=== PATIENT | female | born 1955 | race Two or more races ===

== ENCOUNTER 2021-01-05 13:54 | Outpatient (REF) | payer MEDICARE, MEDICAID, SELFPAY ==
--- NOTE | ~2021-01-05 | MM_ITS ---
EXAMINATION: MM SCREENING DIGITAL BREAST TOMOSYNTHESIS, BILATERAL CLINICAL INFORMATION: Screening. Asymptomatic. Prior history left breast cancer 2015 and right ALH 2015. COMPARISON: Mammography: 12/30/2019, 12/17/2018, 12/15/2017, 12/12/2016, 11/10/2015 TECHNIQUE: Digital breast tomosynthesis is performed in both the craniocaudal and mediolateral oblique views along with computer-aided detection (CAD). Synthesized 2D images are generated from the tomosynthesis. Additional right MLO and exaggerated left CC views are provided. FINDINGS: There are scattered areas of fibroglandular density (ACR BI-RADS breast composition Category b). The right breast parenchymal pattern is similar to prior exams. There is no developing density or interval mass or architectural abnormality. Neither breast shows abnormal calcifications. The bilateral axilla and skin contours are unremarkable. Left MLO view has nodular asymmetry lower quadrant, lateral to midline on tomography without correlate on the CC views. Patient will be recalled for additional imaging. Remainder of the left breast is unremarkable. MM/MM tomosynthesis screening BI IMPRESSION: 1. Left: Nodular asymmetry lower quadrant on MLO view. 2. Right: No mammographic evidence of malignancy. ASSESSMENT: BI-RADS 0: Incomplete - Need Additional Imaging Evaluation RECOMMENDATION: 1. Additional views of the left breast (3-D spot MLO, 3-D ML). 2. Targeted ultrasound if warranted after review of the additional views. 3. Radiology department staff will contact the patient for additional imaging. This patient's information was entered into a reminder system with a target due date for their next mammogram.
== END 2021-01-05 13:55 | disposition home or self-care (01) ==
LOC: HO.MAMMO 13:54
PROVIDERS: PCP Family Medicine; Visit Provider Family Medicine
DX: Z12.31 Encounter for screening mammogram for malignant neoplasm of breast (principal)
CPT/HCPCS: 77063; 77067

== ENCOUNTER 2021-01-29 10:16 | Outpatient (REF) | payer OTHER, SELFPAY ==
--- NOTE | ~2021-01-29 | US_ITS ---
EXAMINATION: MM DIAGNOSTIC DIGITAL BREAST TOMOSYNTHESIS, LEFT US DIAGNOSTIC ULTRASOUND BREAST, LEFT CLINICAL INFORMATION: Recall from screening for nodular asymmetry lower quadrant lateral to midline on MLO tomography. No CT correlate. Prior history left breast cancer 2014 and right ALH 2014 COMPARISON: Mammography: 01/05/2021 and multiple prior exams dating back to 03/26/2012. TECHNIQUE: Digital breast tomosynthesis is performed. 2D images are generated from the tomosynthesis. The following views are obtained: 3-D ML, 3-D spot MLO x2. Ultrasound left breast is targeted to the lower outer quadrant. Grayscale imaging and color Doppler are performed without and with harmonics. FINDINGS: There are scattered areas of fibroglandular density (ACR BI-RADS breast composition Category b). Additional views show parenchymal pattern similar to prior remote exams. There are shifting fibroglandular densities from year to year without interval developing density or mass on additional imaging. Ultrasound demonstrates no cystic or solid mass or architectural abnormality in the targeted area. Results are discussed with the patient at time of visit, using an low emission automobile designer. US/US breast LT limited IMPRESSION: Additional views show no significant changes from prior studies. Unremarkable targeted left breast ultrasound. ASSESSMENT: BI-RADS 2: Benign RECOMMENDATION: Routine annual mammography screening. This patient's information was entered into a reminder system with a target due date for their next mammogram.
== END 2021-01-29 10:17 | disposition home or self-care (01) ==
LOC: HO.MAMMO 10:16
PROVIDERS: PCP Family Medicine; Visit Provider Family Medicine
DX: N64.89 Other specified disorders of breast (principal)
CPT/HCPCS: 76642; 77061; 77065

== ENCOUNTER → 2021-08-06 16:00 | Outpatient (BNV) | payer OTHER, SELFPAY | PROVIDERS: Visit Provider Internal Medicine | DX: C50.912 Malignant neoplasm of unspecified site of left female breast (principal) | CPT/HCPCS: 99213; 99214 ==

== ENCOUNTER 2021-08-24 18:39 | Outpatient (REF) | payer OTHER, SELFPAY ==
--- NOTE | ~2021-08-24 | MR_ITS ---
EXAMINATION: MR head/brain wo con CLINICAL INFORMATION: Reason for Exam Other general signs and symptoms . Forgetfulness; in balance. Symptoms for one year. COMPARISON: CT angiography head 03/29/2015. CT head 07/05/2014. TECHNIQUE: Routine unenhanced MRI of the brain obtained on a 1.5 Nataliya platform. FINDINGS: A mild number scattered supratentorial subcortical and periventricular white matter punctate T2 hyperintensities are noted. Mild diffuse commensurate prominence of ventricles and sulci is visualized. No intrarenal hemorrhage, tumors or acute infarcts are visualized. Susceptibility weighted images reveal no evidence of acute or chronic hemorrhage within the brain parenchyma. The craniocervical junction cerebellar tonsils are normal in configuration. No suspicious marrow abnormalities. Normal flow-related signal intensity within the visualized major intracranial vessels and dural sinuses. Normal orbits and globes. No significant mucosal thickening or retained secretions within the mastoid air cells, middle ear cavities and paranasal sinuses. A 6 mm diameter subcutaneous nodules present in the right parietal region corresponding to a similar finding on the comparison CT the head from 03/29/2015. This finding is suspicious for sebaceous cyst. MR/MR head/brain wo con IMPRESSION: -No acute intracranial abnormalities. -Mild chronic microangiopathic ischemic changes. -Incidental 6 mm subcutaneous extracranial nodule in the right parietal region most suspicious for a sebaceous cyst.
== END 2021-08-24 18:40 | disposition home or self-care (01) ==
LOC: HO.MRI 18:39
PROVIDERS: PCP Family Medicine; Visit Provider Family Medicine
DX: R68.89 Other general symptoms and signs (principal)
CPT/HCPCS: 70551

== ENCOUNTER 2022-01-07 13:53 | Outpatient (REF) | payer OTHER, SELFPAY ==
--- NOTE | ~2022-01-07 | MM_ITS ---
EXAMINATION: MM SCREENING DIGITAL BREAST TOMOSYNTHESIS, BILATERAL CLINICAL INFORMATION: Screening. Asymptomatic. Status post left lumpectomy. COMPARISON: Mammography: January 29, 2021 and studies dating back to October 19, 2014 TECHNIQUE: Digital breast tomosynthesis is performed in both the craniocaudal and mediolateral oblique views along with computer-aided detection (CAD). Synthesized 2D images are generated from the tomosynthesis. FINDINGS: There are scattered areas of fibroglandular density (ACR BI-RADS breast composition Category b). There are no significant masses, abnormal calcifications, or other abnormalities. MM/MM tomosynthesis screening BI IMPRESSION: There are no significant changes from prior study. ASSESSMENT: BI-RADS 1: Negative RECOMMENDATION: Routine annual mammography screening. This patient's information was entered into a reminder system with a target due date for their next mammogram.
== END 2022-01-07 13:54 | disposition home or self-care (01) ==
LOC: HO.MAMMO 13:53
PROVIDERS: PCP Family Medicine; Visit Provider Family Medicine
DX: Z12.31 Encounter for screening mammogram for malignant neoplasm of breast (principal)
CPT/HCPCS: 77063; 77067

== ENCOUNTER 2022-05-16 12:50 | Emergency (ER) | payer OTHER, SELFPAY ==
[2022-05-16 13:04] VITALS: BP 152/86; PULSE 79; O2SAT 96
[2022-05-16 14:08] VITALS: BP 157/77; PULSE 59; RESP 19; TEMP 36.6; O2SAT 95; BMI 35.8
[2022-05-16 14:22] LABS: MANUAL DIFF FLAG NO
[2022-05-16 14:25] LABS: Basophils Absolute Auto 0.1 X10*3/uL (0.0-0.2); Basophils Percent Auto 0.6 % (0-2); Eosinophils Absolute Auto 0.1 X10*3/uL (0.0-0.4); Eosinophils Percent Auto 1.2 % (0-4); Hematocrit 42.6 % (37.0-47.0); Hemoglobin 14.2 g/dl (12.0-16.0); Imm Gran Abs Auto 0.02 X10*3/uL (0.00-0.03); Imm Gran Pct Auto 0.2 % (0.0-0.4); Lymphocytes Absolute Auto 1.7 X10*3/uL (1.2-4.9); Lymphocytes Percent Auto 20.6 % (20-40); Mean Corpuscular HGB Conc 33.3 g/dl (31.0-35.0); Mean Corpuscular Hemoglobin 28.6 pg (27.0-33.0); Mean Corpuscular Volume 85.9 fL (80.0-98.0); Mean Platelet Volume 10.8 fL (9.4-12.3); Monocytes Absolute Auto 0.7 X10*3/uL (0.1-1.2); Monocytes Percent Auto 8.2 % (2-11); Neutrophils Absolute Auto 5.6 x10*3/uL (2.0-8.3); Neutrophils Percent Auto 69.2 % (45-73); Platelet Count 238 X10*3/uL (160-400); Red Blood Count 4.96 X10*6/uL (4.20-5.50); Red Cell Distribution Width 12.9 % (11.0-16.0); White Blood Count 8.1 X10*3/uL (4.8-10.8)
[2022-05-16 14:42] LABS: Anion Gap 13 (12-20); Blood Urea Nitrogen 10 mg/dL (9-16); Calcium 9.6 mg/dL (8.4-10.2); Carbon Dioxide 26 mmol/L (22-29); Chloride 105 mmol/L (96-108); Creatinine Clr Calc Pharmacy 66.7; Estimated Glomerular Filt Rate > 60; Glucose Random 124 mg/dL (60-115); Potassium 3.7 mmol/L (3.3-5.1); Sodium 140 mmol/L (135-145)
[2022-05-16 15:25] VITALS: BP 161/59; PULSE 59; RESP 20; TEMP 37; O2SAT 98
--- NOTE | 2022-05-16 15:55 | ED_ITS ---
HPI - General Adult General Chief complaint: Headache Stated complaint: headache and htn Time Seen by Provider: 05/16/22 15:33 Source: patient Mode of arrival: ambulatory Limitations: language barrier (Serbian-speaking) History of Present Illness HPI narrative: 67-year-old female with a past medical history of breast cancer, invasive ductal carcinoma Status post 4 cycles of dose dense AC with Neulasta support started December 14, by Dr. Kaye. 2014 completed January 25, 2015, Received tamoxifen until nov 2016, finished a course Letrozole, completed a 5 years of hormonal therapy, HTN on 20 mg lisinopril taking as prescribed and depression presenting to the ER with complaints of a diffuse headache that started 2 days ago when she woke up and she noted she had high blood pressure 200/100 that she took her blood pressure medication although the symptoms continued therefore she went to [facility] Emergency Department yesterday. She states in Serbian ?they did a full workup on me they took 8 tubes of blood and they did a CT scan of my head they did an x-ray and an EKG and told me it was all normal in sent me home with Tylenol?. She reports today she has some right-sided neck pain she reports that she thinks is a muscle spasm because when she turns her neck it will worsens and when she palpates her right neck/back/trapezius aspect she has pain. She denies any dizziness at this time to me. She denies any changes in vision, nausea/vomiting, chest pain or shortness of breath, dyspnea on exertion, orthopnea, palpitations, paresthesias, abdominal pain, diarrhea, black or bloody stools, rashes, recent travel or sick contacts, recent falls or trauma, recent tick bites, recent CO2 exposure/toxicity, recent epidural procedure, recent spinal tap or any other symptoms complaints or concerns at this time. MD complaint: Headache, high blood pressure and right neck pain Onset (ago): day(s) (3) Location: head and neck Radiation: non-radiation Severity: mild Quality: aching Pain Consistency: constant Relieving factors: none Exacerbating factors: movement (Palpation and movement of the right side of the neck) Associated symptoms: headaches and other (High blood pressure) Treatments prior to arrival: other (Reports she is taking [id number] Tylenol no symptomatic relief) Related Data Home Medications Medication Instructions Recorded Confirmed hydroxyzine HCl 10 mg tablet 10 mg PO BEDTIME 08/06/21 01/30/22 ibuprofen 600 mg tablet 600 mg PO Q6H PRN Pain 08/06/21 01/30/22 lisinopril 20 mg tablet 20 mg PO DAILY 08/06/21 01/30/22 multivitamin 1 tab PO DAILY 08/06/21 01/30/22 omeprazole 20 mg tablet,delayed 20 mg PO DAILY 08/06/21 01/30/22 release ascorbic acid (vitamin C) 25 mg 10 mg PO DAILY 01/30/22 01/30/22 tablet Previous Rx's Medication Instructions Recorded letrozole 2.5 mg tablet 2.5 mg PO DAILY breast cancer #90 08/24/20 tabs cyclobenzaprine 10 mg tablet 10 mg PO Q8H #14 tabs 05/16/22 ibuprofen 800 mg tablet 800 mg PO Q8H PRN pain #14 tabs 05/16/22 Allergies Allergy/AdvReac Type Severity Reaction Status Date / Time morphine [MORPHINE] AdvReac Mild NAUSEA & Verified 05/16/22 14:08 VOMITING Review of Systems Review of Systems: Constitutional : No changes in activity, No lethargy, No recent prior head injury, No agitation, No increased fussiness ENT/Mouth : No Ear Pain, No Nasal discharge/drainage Eyes: No Eye Pain, No Swelling, No Redness, No Foreign Body, No Vision Changes Cardiovascular : No Chest Pain, No SOB Respiratory : No Cough Gastrointestinal : No Nausea, No Vomiting, No abdominal Pain Genitourinary : No Dysuria, No Urinary Frequency, No Urinary Incontinence, No Urgency, No Flank Pain Musculoskeletal : + Neck pain, No joint pain, No neck stiffness, No back pain/injury Skin : No lacerations Neuro : No unsteady gait, No Paresthesias, No Loss of Consciousness, No altered mental status, No dizziness, + Headache Denies past medical history of HIV, recent trauma, coagulopathy, recent spinal/ epidural procedure, new medication, URI symptoms, close contacts with similar symptoms, tick bite, or known CO2 exposure. Yes all other systems are reviewed and are negative [facility], [facility] Past Medical History Attestation statement: The following information was validated with the patient. Source: old records reviewed and nursing notes reviewed Medical History Depression Diverticulitis HTN (hypertension) Internal hemorrhoids Osteoarthritis of both hands Rotator cuff dysfunction Sebaceous cyst Surgical History H/O: hysterectomy Family History Family History Mother Breast cancer Sister Breast cancer Social History Social History Household Members: Significant Other Housing: Apartment Are you a primary customer care manager to a significant other at home: No Do you presently have visiting nurse or other home services: No Alcohol intake: former Patient Tobacco Use Status: Former Tobacco user Quit Date: 2013 Tobacco use type: Cigarette Smoked in Last 30 Days: No Use of substances other than those prescribed or required for medical reasons: No Advance Directives: No Advance Directives Information Provided: Yes service: No Current occupational status: disabled Physical Exam ED Vital Signs: Vital Signs - 24 hr 05/16/22 14:08 05/16/22 15:25 Temperature 98 F 98.6 F Pulse Rate 59 59 Respiratory Rate 19 20 Blood Pressure 157/77 H 161/59 H Pulse Oximetry 95 98 Oxygen Delivery Method Room Air Room Air BMI result Body Mass Index 35.8 vital signs have been reviewed as normal and appeared to be correct. Blood pressure 157/77. Heart rate normal. Respiration rate normal. Temperature normal. Oxygen saturation normal. Appearance: Alert. Oriented X3. No acute distress. Head: Normal external exam. Normocephalic. Atraumatic. No Bhat signs noted. No raccoon eyes noted Eyes: PERRLA. EOMI. Conjunctiva and sclera normal. Eyelids normal. ENT: EAC normal. TM's Normal. No septal hematoma noted. No hemotympanum noted. Pharynx normal. Uvula midline. Moist mucous membranes. No lesions/ulcerations or masses noted on the tongue. Normal voice. No trismus noted. No drooling noted. No muffled voice noted. Neck: Normal inspection. Neck supple. FROM. No adenopathy. Thyroid Normal. No tracheal deviation noted. No crepitus is noted. No meningeal signs. No neck mass noted. No signs of trauma noted. CVS: Normal heart rate and rhythm. Heart sound normal. Pulses normal throughout. No murmurs/rales/gallops. Respiratory: No respiratory distress. Painless inspiration. Breath sounds normal. No wheezes/rales/rhonchi noted. Chest nontender. No crepitus is noted. No signs of trauma noted. No accessory muscle usage noted or decreased air movement noted. No signs of trauma. Abdomen: Soft and nontender. Bowel sounds normal in all 4 quadrants. No distention noted. No organomegaly noted. No visible injury noted. Back: No CVA tenderness. Full range of motion noted. Nontender. No signs of trauma. Patient neuro intact bilaterally and distally on all 4 extremities. Patient's reflexes intact bilaterally and distally on all 4 extremities. No rashes/lesion/induration/fluctuance or signs of infection noted. Skin: Skin warm and dry. Normal skin color. Normal skin turgor. No rashes/lesions/lacerations noted. Extremities: No lower extremity edema. No calf tenderness is noted. Extremities exhibit normal range of motion and nontender. Neuro: Oriented X 3. No motor deficit. No sensory deficit. Reflexes normal. Moving all extremities. No focal motor deficits. Cranial nerves II-XI intact bilaterally. Facial strength normal. Normal cognition. Speech normal. Gait normal. Strength 5/5 throughout. No pronator drift. No tremor noted. No fasciculations noted. No rigidity noted. Muscle tone normal throughout. No asterixis noted. [id number] test normal. Heel to [place] test normal. Tandem gait normal. Does not sway with eyes open. Romberg test negative. Rapid alternating movement upper extremity normal. Rapid alternating movement lower extremity normal. Hand drop from overhead Misses face. NIHSS score 0. Vascular: + radial pulses/+ 2 distal pedal pulses/+2 dorsalis pedis b/l. Normal cap refill. No cyanosis noted to upper extremity nails and lower extremity toes nails. Course Course Course Narrative: - Patient afebrile, resting comfortably in no distress. Non-toxic appearing. Patient denies any recent trauma/injury to head. Neurological exam shows no deficits. BP WNL. Denies any changes in vision. Patient ambulates without difficulty. Given the history, and physical - most likely diagnosis: COTO. Patient reports she had a thorough workup yesterday and a CT scan of her brain and they told her that it was a muscle spasm and high blood pressure and to continue taking her previously prescribed medications. Therefore no additional imaging indicated at this time as patient has a normal neuro exam and her symptoms have been present for 3 days and yesterday she had a CT scan of her brain at [facility] that she reports was negative. Will treat pain. Will d/c with headache medicaiton and advised to follow - up with PCP. Patient demonstrated good understanding of signs and symptoms to return to ED for further testing should sx worsen. gradual onset COTO. SAH: unlikely given gradual onset and similar to previous episodes Intracranial bleed: unlikely given neg trauma, neg anticoagulation Meningitis: unlikely given pt afebrile, neg stiff neck, no immune compromise. Exam without signs of meningismus Temporal arteritis: Unlikely given Neg jaw claudication, no temporal tenderness or nodularity on exam. Cerebral venous thrombosis: unlikely given no h/o hypercoaguable state, no chronic head/neck infection. Pt c likely muscular pain, but could be herniated disc. Neuro exam shows no deficits. Not c/w vascular etiology, perivertebral / other soft tissue neck / airway infection, or spinal fx / process. Imaging not currently indicated. DC c meds and f/u patient understands agrees with this plan. Medical Decision Making Medical Records Medical records reviewed: Yes I reviewed the patient's medical records. Lab Data Lab results reviewed: Yes I reviewed the patient's lab results. Result diagrams: 05/16/22 14:16 05/16/22 14:16 Labs: Lab Results 05/16/22 05/16/22 Range/Units 14:16 14:16 WBC 8.1 (4.8-10.8) X10*3/uL RBC 4.96 (4.20-5.50) X10*6/uL Hgb 14.2 (12.0-16.0) g/dl Hct 42.6 (37.0-47.0) % MCV 85.9 (80.0-98.0) fL MCH 28.6 (27.0-33.0) pg MCHC 33.3 (31.0-35.0) g/dl RDW 12.9 (11.0-16.0) % Plt Count 238 (160-400) X10*3/uL MPV 10.8 (9.4-12.3) fL Immature Gran % (Auto) 0.2 (0.0-0.4) % Neut % (Auto) 69.2 (45-73) % Lymph % (Auto) 20.6 (20-40) % Morrill % (Auto) 8.2 (2-11) % Eos % (Auto) 1.2 (0-4) % Baso % (Auto) 0.6 (0-2) % Lymph # (Auto) 1.7 (1.2-4.9) X10*3/uL Morrill # (Auto) 0.7 (0.1-1.2) X10*3/uL Eos # (Auto) 0.1 (0.0-0.4) X10*3/uL Baso # (Auto) 0.1 (0.0-0.2) X10*3/uL Abs Immat Gran (auto) 0.02 (0.00-0.03) X10*3/uL Absolute Neuts (auto) 5.6 (2.0-8.3) x10*3/uL Absolute Nucleated RBC 0.000 (0.0-0.012) X10*3/uL Nucleated RBC % (auto) 0.0 (0.0-0.2) /100WBC Sodium 140 (135-145) mmol/L Potassium 3.7 (3.3-5.1) mmol/L Chloride 105 (96-108) mmol/L Carbon Dioxide 26 (22-29) mmol/L Anion Gap 13 (12-20) BUN 10 (9-16) mg/dL Creatinine 0.87 (0.5-1.4) mg/dL Estim Creat Clear Calc 66.7 Estimated GFR > 60 Random Glucose 124 H (60-115) mg/dL Calcium 9.6 (8.4-10.2) mg/dL Discharge Plan Discharge Clinical Impression: Headache, Muscle spasms of neck, High blood pressure Patient Disposition: Home, Self-Care Instructions: Heart Healthy Diet (ED), Hypertension (ED), Muscle Spasm (ED) Prescriptions: New ibuprofen 800 mg tablet 800 mg PO Q8H PRN (Reason: pain) Qty: 14 0RF cyclobenzaprine 10 mg tablet 10 mg PO Q8H Qty: 14 0RF No Action letrozole 2.5 mg Tablet 2.5 mg PO DAILY Qty: 90 3RF Rx Instructions: Take 1 po daily multivitamin Tablet 1 tab PO DAILY lisinopril 20 mg Tablet 20 mg PO DAILY ibuprofen 600 mg Tablet 600 mg PO Q6H PRN (Reason: Pain) hydroxyzine HCl 10 mg Tablet 10 mg PO BEDTIME omeprazole 20 mg Tablet,Delayed Release (Dr/Ec) 20 mg PO DAILY Vitamin C 25 mg Tablet 10 mg PO DAILY Referrals: Margo Daniel DO [Primary Care Provider] - 2 days Interventions: ED Discharge Assessment Last Done: 05/16/22 16:16 Discharge Date/Time: 05/16/22 16:17
[2022-05-16] MEDS: Cyclobenzaprine HCl 10 MG TABLET PO (15:58)
[2022-05-16] MEDS: Lidocaine 4 % Patch ADH..PATCH 1 PATCH TRANSDERMA (15:58)
[2022-05-16] MEDS: Ibuprofen 800 MG TABLET PO (16:13)
== END 2022-05-16 16:17 | disposition home or self-care (01) ==
PROVIDERS: Emergency Provider Student in an Organized Health Care Education/Training Program; PCP Family Medicine
DX: R51.9 Headache, unspecified (principal); M62.838 Other muscle spasm; I10 Essential (primary) hypertension; Z79.899 Other long term (current) drug therapy
CPT/HCPCS: 36415; 80048; 85025; 99283; 99284

== ENCOUNTER 2022-05-18 20:38 | Emergency (ER) | payer OTHER, SELFPAY ==
--- NOTE | ~2022-05-18 | CT_ITS ---
EXAMINATION: CT HEAD WITHOUT CONTRAST CLINICAL INFORMATION: Headache COMPARISON: MRI brain dated 08/24/2021 TECHNIQUE: Contiguous axial imaging was performed from the skull base to vertex without intravenous administration of contrast. This CT examination was performed using dose optimization techniques as appropriate, variously including the following: *Automated exposure control *Adjustment of mA and/or kV according to patient size (this includes techniques or standardized protocols for targeted exams where dose is matched to indication/reason for exam; i.e. extremities or head) *Use of iterative reconstruction technique DLP: 662 mGy-cm FINDINGS: There is no evidence of acute intracranial hemorrhage or territorial infarction. No abnormal mass effect or midline shift is seen. Prieto to white matter differentiation is well preserved. No extra-axial fluid collections are identified. The ventricles are normal in size. There is no abnormal attenuation within the brain parenchyma. The mastoid air cells and visualized portions of the paranasal sinuses are well aerated. There are couple pilomatricomas in the scalp. CT/CT head/brain wo con IMPRESSION: No acute intracranial pathology.
[2022-05-18 20:40] VITALS: BP 200/83; PULSE 86; RESP 18; TEMP 36.5; O2SAT 94; BMI 36.0
--- NOTE | 2022-05-18 22:17 | ED_ITS ---
HPI - Headache General Chief Complaint: Headache Stated Complaint: Head pain Time Seen by Provider: 05/18/22 22:12 Source: patient Mode of arrival: ambulatory Limitations: no limitations History of Present Illness HPI Narrative: Patient comes to the emergency room complaining of a posterior headache. Patient states the headache has been there for about 2 days. Patient was evaluated for headache, muscle spasms of the neck and high blood pressure. Yesterday, patient went to [facility] complaining of the same. Patient today complaining of headache, no nausea vomiting, no visual changes. Patient states she takes 20 mg of lisinopril daily for her blood pressure and is compliant with her meds. Denies chest pain or shortness of breath Related Data Home Medications Medication Instructions Recorded Confirmed hydroxyzine HCl 10 mg tablet 10 mg PO BEDTIME 08/06/21 01/30/22 ibuprofen 600 mg tablet 600 mg PO Q6H PRN Pain 08/06/21 01/30/22 lisinopril 20 mg tablet 20 mg PO DAILY 08/06/21 01/30/22 multivitamin 1 tab PO DAILY 08/06/21 01/30/22 omeprazole 20 mg tablet,delayed 20 mg PO DAILY 08/06/21 01/30/22 release ascorbic acid (vitamin C) 25 mg 10 mg PO DAILY 01/30/22 01/30/22 tablet Previous Rx's Medication Instructions Recorded letrozole 2.5 mg tablet 2.5 mg PO DAILY breast cancer #90 08/24/20 tabs cyclobenzaprine 10 mg tablet 10 mg PO Q8H #14 tabs 05/16/22 ibuprofen 800 mg tablet 800 mg PO Q8H PRN pain #14 tabs 05/16/22 ketorolac 10 mg tablet 10 mg PO TID PRN pain 5 days #10 05/19/22 tabs lisinopril 40 mg tablet 40 mg PO DAILY #30 tabs 05/19/22 Allergies Allergy/AdvReac Type Severity Reaction Status Date / Time morphine [MORPHINE] AdvReac Mild NAUSEA & Verified 05/18/22 20:40 VOMITING Review of Systems Review of Systems: Constitutional : No Weight loss, No Fever, No Chills, No Night Sweats, No Fatigue, No Malaise ENT/Mouth : No Hearing loss, No Ear Pain, No Nasal Congestion, No Sinus Pain, No Hoarseness, No sore throat, No Rhinorrhea, No Swallowing Difficulty Eyes: No Eye Pain, No Swelling, No Redness, No Foreign Body, No Discharge, No Vision Changes Cardiovascular : No Chest Pain, No SOB, No Dyspnea on Exertion, No Orthopnea, No Edema, No Palpitations Respiratory : No Cough, No Sputum, No Wheezing, No Smoke Exposure, No Dyspnea Gastrointestinal : No Nausea, No Vomiting, No Diarrhea, No Constipation, No abdominal Pain, No Hematochezia, No Melena Genitourinary : no irregular bleeding, No Dysuria, No Urinary Frequency, No Hematuria, No Urinary Incontinence, No Urgency, No Flank Pain, No Urinary Flow Changes, No Hesitancy Musculoskeletal : No joint pain, No Myalgias, No Joint Swelling Skin : No Skin Lesions, No rash Neuro : No Weakness, No Numbness, No Paresthesias, No Loss of Consciousness, No Dizziness, complaining of headache posterior aspect radiating down the neck bilaterally Psych : No Anxiety/Panic, No Depression, No SI/HI/AH/VH, No Social Issues, Heme/Lymph: No Bruising, No Bleeding,No Lymphadenopathy Endocrine : No Polyuria, No Polydipsia, No Temperature Intolerance [facility] Past Medical History Medical History Depression Diverticulitis HTN (hypertension) Internal hemorrhoids Osteoarthritis of both hands Rotator cuff dysfunction Sebaceous cyst Surgical History H/O: hysterectomy Family History Family History Mother Breast cancer Sister Breast cancer Social History Social History Household Members: Significant Other Housing: Apartment Are you a primary child care centre manager to a significant other at home: No Do you presently have visiting nurse or other home services: No Alcohol intake: former Patient Tobacco Use Status: Former Tobacco user Quit Date: 2013 Tobacco use type: Cigarette Advance Directives: No Advance Directives Information Provided: No service: No Current occupational status: disabled Physical Exam Vital Signs: Vital Signs: Last Vital Signs Temp 97.8 F 05/18/22 23:53 Pulse 74 05/18/22 23:53 Resp 16 05/18/22 23:53 BP 164/74 H 05/18/22 23:53 Pulse Ox 97 07/30/22 23:53 O2 Del Method 05/18/22 23:53 BMI result Body Mass Index 36.0 Const: Other: Appearance: Alert. Oriented X3. Tearful Eyes: Pupils equal, round and reactive to light. No photophobia ENT: Pharynx normal. Neck: Normal inspection. Neck supple. No lymph nodes noted. No crepitus CVS: Normal heart rate and rhythm. Pulses normal. Normal S1 and S2 Respiratory: No respiratory distress. Breath sounds normal. No Wheezing. No rales Abdomen: Soft and nontender. No rigidity. No distention. Skin: Skin warm and dry. Normal skin color. Normal skin turgor. Extremities: No lower extremity edema. No Lacerations. No Rash Neuro: Oriented X 3. No motor deficit. No sensory deficit. Moving all extremities. No slurred speech. CN 2 through 12 grossly intact Psych: calm, cooperative, teary Course Course Course Narrative: Patient's blood pressure is 200/83. Patient will be getting a head CT. Patient getting p.o. labetalol 100 mg, Reglan, diphenhydramine and oxycodone After a dose of labetalol, patient's blood pressure [address] negative. Patient requesting more pain medication, patient been giving Toradol IV. I discussed with the patient that if Toradol does not work, we will likely have to do a lumbar puncture. Patient states that her headache is nearly resolved after IV Toradol. Patient states that she no longer has headache or neck spasms. Patient has normal range of motion in her neck, patient feels very well and would like to be discharged home MDM - Headache Lab Data Result diagrams: 05/18/22 22:41 05/18/22 22:41 Labs: Lab Results 05/18/22 05/18/22 05/18/22 Range/Units 22:41 22:41 22:41 WBC 9.1 (4.8-10.8) X10*3/uL RBC 4.88 (4.20-5.50) X10*6/uL Hgb 14.0 (12.0-16.0) g/dl Hct 42.2 (37.0-47.0) % MCV 86.5 (80.0-98.0) fL MCH 28.7 (27.0-33.0) pg MCHC 33.2 (31.0-35.0) g/dl RDW 13.0 (11.0-16.0) % Plt Count 222 (160-400) X10*3/uL MPV 10.7 (9.4-12.3) fL Immature Gran % (Auto) 0.3 (0.0-0.4) % Neut % (Auto) 69.0 (45-73) % Lymph % (Auto) 19.1 L (20-40) % Elk % (Auto) 9.0 (2-11) % Eos % (Auto) 1.9 (0-4) % Baso % (Auto) 0.7 (0-2) % Lymph # (Auto) 1.7 (1.2-4.9) X10*3/uL Elk # (Auto) 0.8 (0.1-1.2) X10*3/uL Eos # (Auto) 0.2 (0.0-0.4) X10*3/uL Baso # (Auto) 0.1 (0.0-0.2) X10*3/uL Abs Immat Gran (auto) 0.03 (0.00-0.03) X10*3/uL Absolute Neuts (auto) 6.3 (2.0-8.3) x10*3/uL Absolute Nucleated RBC 0.000 (0.0-0.012) X10*3/uL Nucleated RBC % (auto) 0.0 (0.0-0.2) /100WBC Sodium 143 (135-145) mmol/L Potassium 3.5 (3.3-5.1) mmol/L Chloride 105 (96-108) mmol/L Carbon Dioxide 26 (22-29) mmol/L Anion Gap 16 (12-20) BUN 12 (9-16) mg/dL Creatinine 0.83 (0.5-1.4) mg/dL Estim Creat Clear Calc 70.1 Estimated GFR > 60 Random Glucose 138 H (60-115) mg/dL Calcium 9.2 (8.4-10.2) mg/dL Troponin I High Sens < 3.5 (<3.5-17.0) ng/L Imaging Data CT scan - head: Radiologist's impression: FINDINGS: There is no evidence of acute intracranial hemorrhage or territorial infarction. No abnormal mass effect or midline shift is seen. Prieto to white matter differentiation is well preserved. No extra-axial fluid collections are identified. The ventricles are normal in size. There is no abnormal attenuation within the brain parenchyma. The mastoid air cells and visualized portions of the paranasal sinuses are well aerated. There are couple pilomatricomas in the scalp. ? CT/CT head/brain wo con IMPRESSION: No acute intracranial pathology. Critical Care Time Critical Care Time Critical Care Time: Yes Total Critical Care Time: 45 Attestation: I have personally provided critical care time. Time includes review of lab data, radiology results, discussion with consultants, and monitoring for potential decompensation. Intervention performed as documented. Discharge Plan Discharge Clinical Impression: Hypertensive urgency, Headache Patient Disposition: Home, Self-Care Instructions: Acute Headache (ED), Hypertension (ED) Additional Instructions: Please follow-up with your primary care physician tomorrow. If you have any worsening or new symptoms, please return to the emergency room or call 911 Prescriptions: New lisinopril 40 mg tablet 40 mg PO DAILY Qty: 30 0RF ketorolac 10 mg tablet 10 mg PO TID PRN (Reason: pain) 5 Days Qty: 10 0RF Rx Instructions: Do not use this medication with ibuprofen, Aleve, naproxen for any NSAID No Action letrozole 2.5 mg Tablet 2.5 mg PO DAILY Qty: 90 3RF Rx Instructions: Take 1 po daily multivitamin Tablet 1 tab PO DAILY lisinopril 20 mg Tablet 20 mg PO DAILY ibuprofen 600 mg Tablet 600 mg PO Q6H PRN (Reason: Pain) hydroxyzine HCl 10 mg Tablet 10 mg PO BEDTIME omeprazole 20 mg Tablet,Delayed Release (Dr/Ec) 20 mg PO DAILY Vitamin C 25 mg Tablet 10 mg PO DAILY ibuprofen 800 mg tablet 800 mg PO Q8H PRN (Reason: pain) Qty: 14 0RF cyclobenzaprine 10 mg tablet 10 mg PO Q8H Qty: 14 0RF
--- NOTE | 2022-05-18 22:24 | ECG_ITS ---
Test Reason : HYPERTENSION Blood Pressure : / mmHG Vent. Rate : 079 BPM Atrial Rate : 079 BPM P-R Int : 150 ms QRS Dur : 080 ms QT Int : 376 ms P-R-T Axes : 036 043 032 degrees QTc Int : 431 ms Normal sinus rhythm ST & T wave abnormality, consider anterior ischemia Abnormal ECG When compared with ECG of 23-JUN-2018 10:29, T wave inversion now evident in Anterior leads Referred By: Evita Constantino Electronically Signed By:ESTRADA SNYDER
[2022-05-18] MEDS: oxyCODONE HCl Immed Release 5 MG TABLET 10 MG PO (22:25)
[2022-05-18] MEDS: Metoclopramide HCl 10 MG TABLET PO (22:26)
[2022-05-18] MEDS: Labetalol HCL 100 MG TABLET PO (22:26)
[2022-05-18] MEDS: diphenhydrAMINE HCL 25 MG TABLET PO (22:26)
[2022-05-18 22:46] LABS: Basophils Absolute Auto 0.1 X10*3/uL (0.0-0.2); Basophils Percent Auto 0.7 % (0-2); Eosinophils Absolute Auto 0.2 X10*3/uL (0.0-0.4); Eosinophils Percent Auto 1.9 % (0-4); Hematocrit 42.2 % (37.0-47.0); Imm Gran Abs Auto 0.03 X10*3/uL (0.00-0.03); Imm Gran Pct Auto 0.3 % (0.0-0.4); Lymphocytes Absolute Auto 1.7 X10*3/uL (1.2-4.9); Lymphocytes Percent Auto 19.1 % (20-40); MANUAL DIFF FLAG NO; Mean Corpuscular HGB Conc 33.2 g/dl (31.0-35.0); Mean Corpuscular Hemoglobin 28.7 pg (27.0-33.0); Mean Corpuscular Volume 86.5 fL (80.0-98.0); Mean Platelet Volume 10.7 fL (9.4-12.3); Monocytes Absolute Auto 0.8 X10*3/uL (0.1-1.2); Neutrophils Absolute Auto 6.3 x10*3/uL (2.0-8.3); Platelet Count 222 X10*3/uL (160-400); Red Blood Count 4.88 X10*6/uL (4.20-5.50); White Blood Count 9.1 X10*3/uL (4.8-10.8)
[2022-05-18 23:02] LABS: Anion Gap 16 (12-20); Blood Urea Nitrogen 12 mg/dL (9-16); Calcium 9.2 mg/dL (8.4-10.2); Carbon Dioxide 26 mmol/L (22-29); Chloride 105 mmol/L (96-108); Creatinine Clr Calc Pharmacy 70.1; Estimated Glomerular Filt Rate > 60; Glucose Random 138 mg/dL (60-115); Potassium 3.5 mmol/L (3.3-5.1); Sodium 143 mmol/L (135-145)
[2022-05-18 23:09] LABS: Troponin-I High Sensitivity < 3.5 ng/L (<3.5-17.0)
[2022-05-18 23:53] VITALS: BP 164/74; PULSE 74; RESP 16; TEMP 36.6; O2SAT 97
[2022-05-19] MEDS: Ketorolac Tromethamine 30 MG/ML VIAL IVPUSH (00:05)
== END 2022-05-19 01:43 | disposition home or self-care (01) ==
PROVIDERS: Emergency Provider Emergency Medicine; PCP Family Medicine
DX: I16.0 Hypertensive urgency (principal); R51.9 Headache, unspecified; Z87.891 Personal history of nicotine dependence
CPT/HCPCS: 36415; 70450; 80048; 84484; 85025; 93005; 96374; 99284; 99285; J1885; Q0163

== ENCOUNTER 2022-12-25 13:57 | Outpatient (REF) | payer OTHER, SELFPAY ==
--- NOTE | ~2022-12-25 | XR_ITS ---
EXAMINATION: XR HAND, RIGHT CLINICAL INFORMATION: Pain. COMPARISON: Radiographs dated 05/13/2019. TECHNIQUE: PA, lateral, and oblique views of the right hand. FINDINGS: Bony alignment and mineralization are normal. There is an ulnar minus variance. There is marked osteoarthritic change of the interphalangeal joint of the thumb. There is mild osteoarthritic change of the third and fifth distal interphalangeal joints and of the second and third proximal interphalangeal joints. There is very mild osteoarthritic change of the third metacarpophalangeal joint. No fracture or dislocation is seen. There is no abnormal bone erosion. The proximal and distal carpal rows are intact. No focal soft tissue swelling, gas or foreign body is seen. XR/XR hand LT min 3V IMPRESSION: There are multi-focal osteoarthritic changes of the left hand, as detailed. No fracture or dislocation is seen. There is no abnormal bony erosive change. EXAMINATION: XR HAND, LEFT CLINICAL INFORMATION: Pain. COMPARISON: Radiographs dated 05/13/2019. TECHNIQUE: PA, lateral, and oblique views of the left hand. FINDINGS: Bony alignment and mineralization are normal. There is an ulnar minus variance. There is moderate osteoarthritic change of the interphalangeal joint of the thumb. There is subluxation of the distal interphalangeal joint. There is very mild osteoarthritic change of the second through fifth distal interphalangeal joints. There is moderate osteoarthritic change of the second proximal interphalangeal joint. There is minimal osteoarthritic change of the third metacarpophalangeal joint. No fracture or dislocation is seen. There is no abnormal bone erosion. The proximal and distal carpal rows are intact. No focal soft tissue swelling, gas or foreign body is seen. IMPRESSION: There are multi-focal osteoarthritic changes of the left hand, as detailed. No fracture or dislocation is seen. There is no abnormal bone erosion.
--- NOTE | ~2022-12-25 | XR_ITS ---
EXAMINATION: XR HAND, RIGHT CLINICAL INFORMATION: Pain. COMPARISON: Radiographs dated 05/13/2019. TECHNIQUE: PA, lateral, and oblique views of the right hand. FINDINGS: Bony alignment and mineralization are normal. There is an ulnar minus variance. There is marked osteoarthritic change of the interphalangeal joint of the thumb. There is mild osteoarthritic change of the third and fifth distal interphalangeal joints and of the second and third proximal interphalangeal joints. There is very mild osteoarthritic change of the third metacarpophalangeal joint. No fracture or dislocation is seen. There is no abnormal bone erosion. The proximal and distal carpal rows are intact. No focal soft tissue swelling, gas or foreign body is seen. XR/XR hand RT min 3V IMPRESSION: There are multi-focal osteoarthritic changes of the left hand, as detailed. No fracture or dislocation is seen. There is no abnormal bony erosive change. EXAMINATION: XR HAND, LEFT CLINICAL INFORMATION: Pain. COMPARISON: Radiographs dated 05/13/2019. TECHNIQUE: PA, lateral, and oblique views of the left hand. FINDINGS: Bony alignment and mineralization are normal. There is an ulnar minus variance. There is moderate osteoarthritic change of the interphalangeal joint of the thumb. There is subluxation of the distal interphalangeal joint. There is very mild osteoarthritic change of the second through fifth distal interphalangeal joints. There is moderate osteoarthritic change of the second proximal interphalangeal joint. There is minimal osteoarthritic change of the third metacarpophalangeal joint. No fracture or dislocation is seen. There is no abnormal bone erosion. The proximal and distal carpal rows are intact. No focal soft tissue swelling, gas or foreign body is seen. IMPRESSION: There are multi-focal osteoarthritic changes of the left hand, as detailed. No fracture or dislocation is seen. There is no abnormal bone erosion.
== END 2022-12-25 13:58 | disposition home or self-care (01) ==
LOC: HO.XRAY 13:57
PROVIDERS: PCP Family Medicine; Visit Provider Family Medicine
DX: M79.641 Pain in right hand (principal); M79.642 Pain in left hand
CPT/HCPCS: 73130

== ENCOUNTER 2023-01-08 14:32 | Outpatient (REF) | payer OTHER, SELFPAY ==
--- NOTE | ~2023-01-08 | MM_ITS ---
EXAMINATION: MM SCREENING DIGITAL BREAST TOMOSYNTHESIS, BILATERAL CLINICAL INFORMATION: Screening. Asymptomatic. Status post left lumpectomy. COMPARISON: Mammography: 01/07/2022 and studies dating back to 12/15/2017 TECHNIQUE: Digital breast tomosynthesis is performed in both the craniocaudal and mediolateral oblique views along with computer-aided detection (CAD). Synthesized 2D images are generated from the tomosynthesis. FINDINGS: There are scattered areas of fibroglandular density (ACR BI-RADS breast composition Category b). There is multiplicity and bilaterality of calcifications. About the anterior aspect of the right breast on mediolateral oblique projection, there is question of new linear calcifications however, there are noted to be some vascular calcifications as well as processing artifact. There is no significant change from previous study. Status post left breast lumpectomy with associated surgical scarring. MM/MM tomosynthesis screening BI IMPRESSION: No significant changes from prior exam. ASSESSMENT: BI-RADS 2: Benign RECOMMENDATION: Routine annual mammography screening. This patient's information was entered into a reminder system with a target due date for their next mammogram.
== END 2023-01-08 14:33 | disposition home or self-care (01) ==
LOC: HO.MAMMO 14:32
PROVIDERS: PCP Family Medicine; Visit Provider Family Medicine
DX: Z12.31 Encounter for screening mammogram for malignant neoplasm of breast (principal)
CPT/HCPCS: 77063; 77067

== ENCOUNTER 2023-02-26 13:26 | Emergency (ER) | payer OTHER, SELFPAY ==
--- NOTE | ~2023-02-26 | XR_ITS ---
EXAMINATION: XR CHEST CLINICAL INFORMATION: Chest pain, cough and SOB COMPARISON: None available. TECHNIQUE: 2 views of the chest were obtained. FINDINGS: No significant abnormality is noted involving the heart, lungs, mediastinum, bony thorax or soft tissues. XR/XR chest 2V IMPRESSION: Unremarkable chest examination.
--- NOTE | 2023-02-26 13:28 | ECG_ITS ---
Test Reason : cp Blood Pressure : / mmHG Vent. Rate : 069 BPM Atrial Rate : 069 BPM P-R Int : 148 ms QRS Dur : 078 ms QT Int : 390 ms P-R-T Axes : 036 048 031 degrees QTc Int : 417 ms Normal sinus rhythm Normal ECG When compared with ECG of 18-MAY-2022 22:24, T wave inversion no longer evident in Anterior leads Referred By: Elaina Hewitt Electronically Signed By:ESTRADA SNYDER
[2023-02-26 13:59] VITALS: BP 161/67; PULSE 77; RESP 18; TEMP 36.8; O2SAT 97; BMI 31.1
--- NOTE | 2023-02-26 14:00 | ED_ITS ---
HPI - Chest Pain General Chief Complaint: Chest Pain <MAXIMINO Villeda - Last Filed: 02/26/23 14:02> Stated Complaint: Chest Pain Diff Breathing <MAXIMINO Villeda - Last Filed: 02/26/23 14:02> Time Seen by Provider: 02/26/23 18:35 <MAXIMINO Villeda - Last Filed: 02/26/23 14:02> Source: patient <Robles Moore MD - Last Filed: 02/26/23 19:24> Mode of arrival: ambulatory <Robles Moore MD - Last Filed: 02/26/23 19:24> Limitations: no limitations <Robles Moore MD - Last Filed: 02/26/23 19:24> History of Present Illness HPI narrative: Patient with no significant cardiac history comes here for cough for last 3 -4 days mostly in the nighttime dry cough with pain in the mid chest while coughing patient does have similar complaints almost every year no diagnosis of asthma or COPD nonsmoker feel congested taking Sudafed no fever no leg swelling or pain <Robles Moore MD - Last Filed: 02/26/23 19:24> Related Data Home Medications: Home Medications Medication Instructions Recorded Confirmed hydroxyzine HCl 10 mg tablet 10 mg PO BEDTIME 08/06/21 02/17/23 ibuprofen 600 mg tablet 600 mg PO Q6H PRN Pain 08/06/21 02/17/23 omeprazole 20 mg tablet,delayed 20 mg PO DAILY 08/06/21 02/17/23 release ascorbic acid (vitamin C) 25 mg 10 mg PO DAILY 01/30/22 02/17/23 tablet cholecalciferol (vitamin D3) 25 25 mcg PO DAILY 02/17/23 02/17/23 mcg (1,000 unit) capsule (Vitamin D3) lisinopril 30 mg tablet 30 mg PO DAILY 02/17/23 02/17/23 Previous Rx's Medication Instructions Recorded cyclobenzaprine 10 mg tablet 10 mg PO Q8H #14 tabs 05/16/22 albuterol sulfate 90 mcg/actuation 2 puff inhalation Q4-6H PRN 02/26/23 aerosol inhaler (ProAir HFA) shortness of breath or wheezing #8.5 grams benzonatate 200 mg capsule 200 mg PO TID PRN cough #30 caps 02/26/23 prednisone 20 mg tablet 40 mg PO DAILY #10 tabs 02/26/23 <MAXIMINO Villeda - Last Filed: 02/26/23 14:02> Allergies/Adverse Reactions: Allergies Allergy/AdvReac Type Severity Reaction Status Date / Time morphine [MORPHINE] AdvReac Mild NAUSEA & Verified 05/18/22 20:40 VOMITING <MAXIMINO Villeda - Last Filed: 02/26/23 14:02> Review of Systems Review of Systems: Yes all other systems are reviewed and are negative <Robles Moore MD - Last Filed: 02/26/23 19:24> PMF Past Medical History Medical History: Medical History Depression Diverticulitis HTN (hypertension) Internal hemorrhoids Osteoarthritis of both hands Rotator cuff dysfunction Sebaceous cyst <MAXIMINO Villeda - Last Filed: 02/26/23 14:02> Surgical History: Surgical History H/O: hysterectomy <MAXIMINO Villeda - Last Filed: 02/26/23 14:02> Family History Family History: Family History Mother Breast cancer Sister Breast cancer <MAXIMINO Villeda - Last Filed: 02/26/23 14:02> Social History Social History: Social History Household Members: Significant Other Housing: Apartment Are you a primary vp care management to a significant other at home: No Do you presently have visiting nurse or other home services: No Alcohol intake: never Patient Tobacco Use Status: Former Tobacco user Quit Date: 2013 Tobacco use type: Cigarette Smoked in Last 30 Days: No Use of substances other than those prescribed or required for medical reasons: No Advance Directives: No Advance Directives Information Provided: Yes service: No Current occupational status: disabled <MAXIMINO Villeda - Last Filed: 02/26/23 14:02> Physical Exam Vital Signs: Vital Signs: Last Vital Signs Temp 98.7 F 02/26/23 18:49 Pulse 78 02/26/23 18:49 Resp 18 02/26/23 18:49 BP 162/74 H 02/26/23 18:49 Pulse Ox 98 02/26/23 18:49 O2 Del Method Room Air 02/26/23 18:49 BMI result Body Mass Index 31.1 <MAXIMINO Villeda - Last Filed: 02/26/23 14:02> Vital Signs: Last Vital Signs Temp 98.7 F 02/26/23 18:49 Pulse 78 02/26/23 18:49 Resp 18 02/26/23 18:49 BP 162/74 H 02/26/23 18:49 Pulse Ox 98 02/26/23 18:49 O2 Del Method Room Air 02/26/23 18:49 BMI result Body Mass Index 31.1 <Robles Moore MD - Last Filed: 02/26/23 19:24> Appearance: Alert. Oriented X3. No acute distress. ENT: Pharynx normal. Oral Mucosa moist inflamed nares Neck: Normal inspection. Neck supple. CVS: Normal heart rate and rhythm. Pulses normal. Respiratory: No respiratory distress. Equal air entry bilateral, no wheezing/rales/rhonchi occasional dry cough Abdomen: Soft and nontender. Bowel sounds are present, n Skin: Skin warm and dry. Normal skin color. Normal skin turgor. Extremities: No lower extremity edema. No calf tenderness Neuro: Oriented X 3. No motor deficit. <Robles Moore MD - Last Filed: 02/26/23 19:24> Course Course Course Narrative: RME - 67 y/o [place] speaking female with remote history of breast cancer presents to the ER for evaluation of constant substernal 05/29, nonradiating chest pain, SOB and coughing for the last 3 days. Pain is worse with breathing and laying flat. Plan: <MAXIMINO Villeda - Last Filed: 02/26/23 14:02> Medications Administered Discontinued Medications Generic Name Dose Route Start Last Admin Trade Name Freq PRN Reason Stop Dose Admin Albuterol Sulfate 2 puff 02/26/23 18:53 02/26/23 19:10 Albuterol Sulfate 90 Mcg 8 Gm Inhaler INHALE 02/26/23 18:54 2 puff ONCE ONE Administration Guaifenesin/Codeine Phosphate 10 ml 02/26/23 18:53 02/26/23 19:10 Guaifen/Codeine Sf 200/20/10ml 10 Ml Liquid PO 02/26/23 18:54 10 ml ONCE ONE Administration Prednisone 40 mg 02/26/23 18:53 02/26/23 19:10 Prednisone 20 Mg Tablet PO 02/26/23 18:54 40 mg ONCE ONE Administration <MAXIMINO Villeda - Last Filed: 02/26/23 14:02> Medications Administered Discontinued Medications Generic Name Dose Route Start Last Admin Trade Name Jorge L PRN Reason Stop Dose Admin Albuterol Sulfate 2 puff 02/26/23 18:53 02/26/23 19:10 Albuterol Sulfate 90 Mcg 8 Gm Inhaler INHALE 02/26/23 18:54 2 puff ONCE ONE Administration Guaifenesin/Codeine Phosphate 10 ml 02/26/23 18:53 02/26/23 19:10 Guaifen/Codeine Sf 200/20/10ml 10 Ml Liquid PO 02/26/23 18:54 10 ml ONCE ONE Administration Prednisone 40 mg 02/26/23 18:53 02/26/23 19:10 Prednisone 20 Mg Tablet PO 02/26/23 18:54 40 mg ONCE ONE Administration <Robles Moore MD - Last Filed: 02/26/23 19:24> Medical Decision Making Medical Decision Making [facility] Narrative: Patient with mid chest pain with cough clinically bronchitis EKG normal a set of troponin negative chest x-ray negative discharge patient on prednisone, albuterol inhaler <Robles Moore MD - Last Filed: 02/26/23 19:24> Lab Data [facility] Lab Attestation statement: I reviewed the patient's lab results. <Robles Moore MD - Last Filed: 02/26/23 19:24> Result Diagrams: 02/26/23 14:08 02/26/23 14:08 <MAXIMINO Villeda - Last Filed: 02/26/23 14:02> Labs: Lab Results 02/26/23 02/26/23 02/26/23 Range/Units 14:08 14:08 14:08 WBC 8.0 (4.8-10.8) X10*3/uL RBC 4.77 (4.20-5.50) X10*6/uL Hgb 13.8 (12.0-16.0) g/dl Hct 41.7 (37.0-47.0) % MCV 87.4 (80.0-98.0) fL MCH 28.9 (27.0-33.0) pg MCHC 33.1 (31.0-35.0) g/dl RDW 13.0 (11.0-16.0) % Plt Count 264 (160-400) X10*3/uL MPV 10.5 (9.4-12.3) fL Immature Gran % (Auto) 0.4 (0.0-0.4) % Neut % (Auto) 61.4 (45-73) % Lymph % (Auto) 27.4 (20-40) % Benton % (Auto) 7.9 (2-11) % Eos % (Auto) 2.3 (0-4) % Baso % (Auto) 0.6 (0-2) % Lymph # (Auto) 2.2 (1.2-4.9) X10*3/uL Benton # (Auto) 0.6 (0.1-1.2) X10*3/uL Eos # (Auto) 0.2 (0.0-0.4) X10*3/uL Baso # (Auto) 0.1 (0.0-0.2) X10*3/uL Abs Immat Gran (auto) 0.03 (0.00-0.03) X10*3/uL Absolute Neuts (auto) 4.9 (2.0-8.3) x10*3/uL Absolute Nucleated RBC 0.000 (0.0-0.012) X10*3/uL Nucleated RBC % (auto) 0.0 (0.0-0.2) /100WBC PT 13.0 (10.0-13.1) SEC INR 1.1 (0.9-1.1) APTT 35.3 (26.0-36.4) SEC Sodium 146 H (135-145) mmol/L Potassium 3.7 (3.3-5.1) mmol/L Chloride 107 (96-108) mmol/L Carbon Dioxide 27 (22-29) mmol/L Anion Gap 16 (12-20) BUN 11 (9-16) mg/dL Creatinine 0.83 (0.5-1.4) mg/dL Estim Creat Clear Calc 64.9 Estimated GFR > 60 Random Glucose 159 H (60-115) mg/dL Calcium 9.4 (8.4-10.2) mg/dL Magnesium 1.9 (1.6-2.6) mg/dL Total Bilirubin 0.5 (0.0-1.0) mg/dL Direct Bilirubin 0.2 (0.0-0.5) mg/dL AST 11 (5-31) U/L ALT 11 (0-31) U/L Alkaline Phosphatase 100 (39-117) U/L Troponin I High Sens (<3.5-17.0) ng/L B-Natriuretic Peptide (<100) pg/mL Total Protein 6.6 (6.5-8.0) g/dL Albumin 4.2 (3.5-5.0) g/dL COVID-19 (TA) (Negative) COVID-19 Clin Com 02/26/23 02/26/23 02/26/23 Range/Units 14:08 14:08 14:08 WBC (4.8-10.8) X10*3/uL RBC (4.20-5.50) X10*6/uL Hgb (12.0-16.0) g/dl Hct (37.0-47.0) % MCV (80.0-98.0) fL MCH (27.0-33.0) pg MCHC (31.0-35.0) g/dl RDW (11.0-16.0) % Plt Count (160-400) X10*3/uL MPV (9.4-12.3) fL Immature Gran % (Auto) (0.0-0.4) % Neut % (Auto) (45-73) % Lymph % (Auto) (20-40) % Benton % (Auto) (2-11) % Eos % (Auto) (0-4) % Baso % (Auto) (0-2) % Lymph # (Auto) (1.2-4.9) X10*3/uL Benton # (Auto) (0.1-1.2) X10*3/uL Eos # (Auto) (0.0-0.4) X10*3/uL Baso # (Auto) (0.0-0.2) X10*3/uL Abs Immat Gran (auto) (0.00-0.03) X10*3/uL Absolute Neuts (auto) (2.0-8.3) x10*3/uL Absolute Nucleated RBC (0.0-0.012) X10*3/uL Nucleated RBC % (auto) (0.0-0.2) /100WBC PT (10.0-13.1) SEC INR (0.9-1.1) APTT (26.0-36.4) SEC Sodium (135-145) mmol/L Potassium (3.3-5.1) mmol/L Chloride (96-108) mmol/L Carbon Dioxide (22-29) mmol/L Anion Gap (12-20) BUN (9-16) mg/dL Creatinine (0.5-1.4) mg/dL Estim Creat Clear Calc Estimated GFR Random Glucose (60-115) mg/dL Calcium (8.4-10.2) mg/dL Magnesium (1.6-2.6) mg/dL Total Bilirubin (0.0-1.0) mg/dL Direct Bilirubin (0.0-0.5) mg/dL AST (5-31) U/L ALT (0-31) U/L Alkaline Phosphatase (39-117) U/L Troponin I High Sens < 2.7 (<3.5-17.0) ng/L B-Natriuretic Peptide 87 (<100) pg/mL Total Protein (6.5-8.0) g/dL Albumin (3.5-5.0) g/dL COVID-19 (TA) Negative (Negative) COVID-19 Clin Com See Note <MAXIMINO Villeda - Last Filed: 02/26/23 14:02> Lab Results 02/26/23 02/26/23 02/26/23 Range/Units 14:08 14:08 14:08 WBC 8.0 (4.8-10.8) X10*3/uL RBC 4.77 (4.20-5.50) X10*6/uL Hgb 13.8 (12.0-16.0) g/dl Hct 41.7 (37.0-47.0) % MCV 87.4 (80.0-98.0) fL MCH 28.9 (27.0-33.0) pg MCHC 33.1 (31.0-35.0) g/dl RDW 13.0 (11.0-16.0) % Plt Count 264 (160-400) X10*3/uL MPV 10.5 (9.4-12.3) fL Immature Gran % (Auto) 0.4 (0.0-0.4) % Neut % (Auto) 61.4 (45-73) % Lymph % (Auto) 27.4 (20-40) % Benton % (Auto) 7.9 (2-11) % Eos % (Auto) 2.3 (0-4) % Baso % (Auto) 0.6 (0-2) % Lymph # (Auto) 2.2 (1.2-4.9) X10*3/uL Benton # (Auto) 0.6 (0.1-1.2) X10*3/uL Eos # (Auto) 0.2 (0.0-0.4) X10*3/uL Baso # (Auto) 0.1 (0.0-0.2) X10*3/uL Abs Immat Gran (auto) 0.03 (0.00-0.03) X10*3/uL Absolute Neuts (auto) 4.9 (2.0-8.3) x10*3/uL Absolute Nucleated RBC 0.000 (0.0-0.012) X10*3/uL Nucleated RBC % (auto) 0.0 (0.0-0.2) /100WBC PT 13.0 (10.0-13.1) SEC INR 1.1 (0.9-1.1) APTT 35.3 (26.0-36.4) SEC Sodium 146 H (135-145) mmol/L Potassium 3.7 (3.3-5.1) mmol/L Chloride 107 (96-108) mmol/L Carbon Dioxide 27 (22-29) mmol/L Anion Gap 16 (12-20) BUN 11 (9-16) mg/dL Creatinine 0.83 (0.5-1.4) mg/dL Estim Creat Clear Calc 64.9 Estimated GFR > 60 Random Glucose 159 H (60-115) mg/dL Calcium 9.4 (8.4-10.2) mg/dL Magnesium 1.9 (1.6-2.6) mg/dL Total Bilirubin 0.5 (0.0-1.0) mg/dL Direct Bilirubin 0.2 (0.0-0.5) mg/dL AST 11 (5-31) U/L ALT 11 (0-31) U/L Alkaline Phosphatase 100 (39-117) U/L Troponin I High Sens (<3.5-17.0) ng/L B-Natriuretic Peptide (<100) pg/mL Total Protein 6.6 (6.5-8.0) g/dL Albumin 4.2 (3.5-5.0) g/dL COVID-19 (TA) (Negative) COVID-19 Clin Com 02/26/23 02/26/23 02/26/23 Range/Units 14:08 14:08 14:08 WBC (4.8-10.8) X10*3/uL RBC (4.20-5.50) X10*6/uL Hgb (12.0-16.0) g/dl Hct (37.0-47.0) % MCV (80.0-98.0) fL MCH (27.0-33.0) pg MCHC (31.0-35.0) g/dl RDW (11.0-16.0) % Plt Count (160-400) X10*3/uL MPV (9.4-12.3) fL Immature Gran % (Auto) (0.0-0.4) % Neut % (Auto) (45-73) % Lymph % (Auto) (20-40) % Benton % (Auto) (2-11) % Eos % (Auto) (0-4) % Baso % (Auto) (0-2) % Lymph # (Auto) (1.2-4.9) X10*3/uL Benton # (Auto) (0.1-1.2) X10*3/uL Eos # (Auto) (0.0-0.4) X10*3/uL Baso # (Auto) (0.0-0.2) X10*3/uL Abs Immat Gran (auto) (0.00-0.03) X10*3/uL Absolute Neuts (auto) (2.0-8.3) x10*3/uL Absolute Nucleated RBC (0.0-0.012) X10*3/uL Nucleated RBC % (auto) (0.0-0.2) /100WBC PT (10.0-13.1) SEC INR (0.9-1.1) APTT (26.0-36.4) SEC Sodium (135-145) mmol/L Potassium (3.3-5.1) mmol/L Chloride (96-108) mmol/L Carbon Dioxide (22-29) mmol/L Anion Gap (12-20) BUN (9-16) mg/dL Creatinine (0.5-1.4) mg/dL Estim Creat Clear Calc Estimated GFR Random Glucose (60-115) mg/dL Calcium (8.4-10.2) mg/dL Magnesium (1.6-2.6) mg/dL Total Bilirubin (0.0-1.0) mg/dL Direct Bilirubin (0.0-0.5) mg/dL AST (5-31) U/L ALT (0-31) U/L Alkaline Phosphatase (39-117) U/L Troponin I High Sens < 2.7 (<3.5-17.0) ng/L B-Natriuretic Peptide 87 (<100) pg/mL Total Protein (6.5-8.0) g/dL Albumin (3.5-5.0) g/dL COVID-19 (TA) Negative (Negative) COVID-19 Clin Com See Note <Robles Moore MD - Last Filed: 02/26/23 19:24> Independent Interpretation I performed an independent interpretation of an: EKG <Robles Moore MD - Last Filed: 02/26/23 19:24> Interpretation: Normal sinus rhythm heart rate 69 beats per minute normal intervals normal axis no acute ST-T changes <Robles Moore MD - Last Filed: 02/26/23 19:24> Discharge Plan Discharge Clinical Impression: Acute bronchitis <MAXIMINO Villeda - Last Filed: 02/26/23 14:02> Patient Disposition: Home, Self-Care <MAXIMINO Villeda - Last Filed: 02/26/23 14:02> Instructions: Acute Bronchitis (ED) <MAXIMINO Villeda - Last Filed: 02/26/23 14:02> Additional Instructions: Use inhaler cough drops and prednisone as prescribed Follow up with PCP if not better <MAXIMINO Villeda - Last Filed: 02/26/23 14:02> Prescriptions: New benzonatate 200 mg capsule 200 mg PO TID PRN (Reason: cough) Qty: 30 0RF albuterol sulfate [ProAir HFA] 90 mcg/actuation HFA aerosol inhaler 2 puff inhalation Q4-6H PRN (Reason: shortness of breath or wheezing) Qty: 8.5 0RF prednisone 20 mg tablet 40 mg PO DAILY Qty: 10 0RF No Action ibuprofen 600 mg Tablet 600 mg PO Q6H PRN (Reason: Pain) hydroxyzine HCl 10 mg Tablet 10 mg PO BEDTIME omeprazole 20 mg Tablet,Delayed Release (Dr/Ec) 20 mg PO DAILY Vitamin C 25 mg Tablet 10 mg PO DAILY lisinopril 30 mg tablet 30 mg PO DAILY cholecalciferol (vitamin D3) [Vitamin D3] 25 mcg (1,000 unit) Capsule 25 mcg PO DAILY cyclobenzaprine 10 mg tablet 10 mg PO Q8H Qty: 14 0RF <MAXIMINO Villeda - Last Filed: 02/26/23 14:02> Interventions: ED Discharge Assessment Last Done: 02/26/23 19:19 <MAXIMINO Villeda - Last Filed: 02/26/23 14:02>
[2023-02-26 14:14] LABS: MANUAL DIFF FLAG NO
[2023-02-26 14:21] LABS: INTERNATIONAL NORM RATIO 1.1 (0.9-1.1)
[2023-02-26 14:24] LABS: Basophils Absolute Auto 0.1 X10*3/uL (0.0-0.2); Basophils Percent Auto 0.6 % (0-2); Eosinophils Absolute Auto 0.2 X10*3/uL (0.0-0.4); Eosinophils Percent Auto 2.3 % (0-4); Hematocrit 41.7 % (37.0-47.0); Hemoglobin 13.8 g/dl (12.0-16.0); Imm Gran Abs Auto 0.03 X10*3/uL (0.00-0.03); Imm Gran Pct Auto 0.4 % (0.0-0.4); Lymphocytes Absolute Auto 2.2 X10*3/uL (1.2-4.9); Lymphocytes Percent Auto 27.4 % (20-40); Mean Corpuscular HGB Conc 33.1 g/dl (31.0-35.0); Mean Corpuscular Hemoglobin 28.9 pg (27.0-33.0); Mean Corpuscular Volume 87.4 fL (80.0-98.0); Mean Platelet Volume 10.5 fL (9.4-12.3); Monocytes Absolute Auto 0.6 X10*3/uL (0.1-1.2); Monocytes Percent Auto 7.9 % (2-11); Neutrophils Absolute Auto 4.9 x10*3/uL (2.0-8.3); Neutrophils Percent Auto 61.4 % (45-73); Partial Thromboplastin Time 35.3 SEC (26.0-36.4); Platelet Count 264 X10*3/uL (160-400); Red Blood Count 4.77 X10*6/uL (4.20-5.50)
[2023-02-26 14:37] LABS: B Type Natriuretic Peptide 87 pg/mL (<100)
[2023-02-26 14:46] LABS: Troponin-I High Sensitivity < 2.7 ng/L (<3.5-17.0)
[2023-02-26 14:47] LABS: COVID-19 Test Negative (Negative); IDNOW Serial# 08D9AD1C
[2023-02-26 15:18] LABS: Alanine Aminotransferase 11 U/L (0-31); Albumin Level 4.2 g/dL (3.5-5.0); Alkaline Phosphatase 100 U/L (39-117); Anion Gap 16 (12-20); Aspartate Amino Transferase 11 U/L (5-31); Bilirubin Direct 0.2 mg/dL (0.0-0.5); Bilirubin Total 0.5 mg/dL (0.0-1.0); Blood Urea Nitrogen 11 mg/dL (9-16); Calcium 9.4 mg/dL (8.4-10.2); Carbon Dioxide 27 mmol/L (22-29); Chloride 107 mmol/L (96-108); Creatinine Clr Calc Pharmacy 64.9; Estimated Glomerular Filt Rate > 60; Glucose Random 159 mg/dL (60-115); Magnesium 1.9 mg/dL (1.6-2.6); Potassium 3.7 mmol/L (3.3-5.1); Sodium 146 mmol/L (135-145); Total Protein 6.6 g/dL (6.5-8.0)
[2023-02-26 18:49] VITALS: BP 162/74; PULSE 78; RESP 18; TEMP 37.1; O2SAT 98
--- NOTE | 2023-02-26 18:50 | PC.NURSE ---
patient a&ox3, vss, lungs clear, pt c/o chest pain only while coughing at night pt has no pain without cough, certified court interpreter at bedside with provider, call pace within reach, will continue to monitor
[2023-02-26] MEDS: guaiFEN/Codeine SF 200/20/10ML 10 ML LIQUID PO (19:10)
[2023-02-26] MEDS: Albuterol Sulfate 90 MCG 8 GM INHALER 2 PUFF INHALE (19:10)
[2023-02-26] MEDS: predniSONE 20 MG TABLET 40 MG PO (19:10)
== END 2023-02-26 19:19 | disposition home or self-care (01) ==
PROVIDERS: Physician Assistant; Emergency Provider Internal Medicine; PCP Family Medicine
DX: J20.9 Acute bronchitis, unspecified (principal); R06.02 Shortness of breath; Z20.822 Contact with and (suspected) exposure to COVID-19; I10 Essential (primary) hypertension; Z87.891 Personal history of nicotine dependence; Z79.899 Other long term (current) drug therapy
CPT/HCPCS: 36415; 71046; 80048; 80076; 83735; 83880; 84484; 85025; 85610; 85730; 87635; 93005; 99284

== ENCOUNTER 2023-04-02 12:39 | Outpatient (REF) | payer OTHER, SELFPAY ==
--- NOTE | ~2023-04-02 | XR_ITS ---
EXAMINATION: XR ELBOW, LEFT CLINICAL INFORMATION: Pain COMPARISON: None available. TECHNIQUE: AP, lateral, and oblique views of the left elbow. 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 There is displacement of fat pad suggestive of joint effusion. No discrete fracture line identified. 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 Displacement of the fat pad suggestive of joint effusion. No discrete fracture line identified, however in the setting of joint effusion radiographically occult fracture cannot be excluded and if any clinical concern consider repeat radiographs in 2 weeks to assess for any interval healing changes.
--- NOTE | ~2023-04-02 | XR_ITS ---
EXAMINATION: XR ELBOW, RIGHT CLINICAL INFORMATION: Pain COMPARISON: None available. TECHNIQUE: AP, lateral, and oblique views of the right elbow. FINDINGS: No acute fracture or dislocation. Well corticated osseous fragment anterior to the elbow may reflect sequelae of remote trauma, degenerative change or loose body. No definite joint effusion. Moderate degenerative changes of the elbow with degenerative spurring and loss of joint space. No soft tissue swelling. XR/XR elbow RT min 3V IMPRESSION: 1. Moderate degenerative changes of the elbow. Well corticated osseous fragment anterior to the elbow may reflect sequelae of remote trauma, degenerative change or loose body.
== END 2023-04-02 12:40 | disposition home or self-care (01) ==
LOC: HO.HHCX 12:39
PROVIDERS: Visit Provider Family Medicine
DX: M25.521 Pain in right elbow (principal); M25.522 Pain in left elbow
CPT/HCPCS: 73080

== ENCOUNTER 2023-04-17 15:03 | Outpatient (REF) | payer OTHER, SELFPAY ==
--- NOTE | 2023-04-17 15:05 | EMG_ITS ---
Please see scanned EMG / Nerve Conduction Report. MTDD
== END 2023-04-17 15:04 | disposition home or self-care (01) ==
LOC: HO.NEURO 15:03
PROVIDERS: PCP Family Medicine; Visit Provider Family Medicine
DX: M79.641 Pain in right hand (principal); M79.642 Pain in left hand
CPT/HCPCS: 95885; 95913

== ENCOUNTER 2023-12-17 09:34 | Emergency (ER) | payer OTHER, SELFPAY ==
--- NOTE | ~2023-12-17 | US_ITS ---
EXAMINATION: US ABDOMEN COMPLETE CLINICAL INFORMATION: Upper abdominal pain, nausea/vomiting/diarrhea.. COMPARISON: None available. TECHNIQUE: Real-time imaging of the abdominal viscera. FINDINGS: PANCREAS: The pancreas is obscured by overlying gas ABDOMINAL AORTA: The proximal, mid, and distal segments are normal in caliber. INFERIOR VENA CAVA: Visualized portions are normal. LIVER: Normal. The liver is normal in size. The liver contour is normal. Parenchymal echogenicity is normal. No focal hepatic lesion. There is no intrahepatic biliary duct dilatation seen. GALLBLADDER: There is echogenic mobile gallstones without wall thickness. The gallbladder wall measures 0.13 cm in thickness. There is no pericholecystic fluid collection or tenderness by ultrasound probe. COMMON BILE DUCT: Normal in caliber measuring 0.43 cm in diameter. RIGHT KIDNEY: Normal. No hydronephrosis. No renal calculi or focal parenchymal lesions. The kidney measures 10.5 cm in maximum dimension. LEFT KIDNEY: There is a anechoic cyst in lower pole measuring 0.90, 0.90 0.95 cm. No hydronephrosis. No renal calculi or focal parenchymal lesions. The kidney measures 9.8 cm in maximum dimension. SPLEEN: Normal. The spleen measures 10.2 cm in maximum dimension. FREE FLUID: None. US/US abdomen complete IMPRESSION: Small renal cysts lower pole left kidney. Cholelithiasis without wall thickening. Rest of the abdominal ultrasound is unremarkable.
[2023-12-17 09:40] VITALS: BP 144/72; PULSE 77; RESP 19; TEMP 36.6; O2SAT 98; BMI 35.1
--- NOTE | 2023-12-17 09:58 | ECG_ITS ---
Test Reason : ABD PAIN Blood Pressure : / mmHG Vent. Rate : 072 BPM Atrial Rate : 072 BPM P-R Int : 148 ms QRS Dur : 078 ms QT Int : 382 ms P-R-T Axes : 043 065 061 degrees QTc Int : 418 ms Normal sinus rhythm Nonspecific T wave abnormality Abnormal ECG When compared with ECG of 26-FEB-2023 13:34, No significant change was found Referred By: Yasmine Tillman Electronically Signed By:ESTRADA SNYDER
--- NOTE | 2023-12-17 10:25 | ED_ITS ---
HPI - Abdominal Pain General Chief Complaint: Abdominal Pain Stated Complaint: Stomach Pain Time Seen by Provider: 12/17/23 09:47 Source: patient Mode of arrival: ambulatory Limitations: no limitations History of Present Illness HPI narrative: 68 yo female with PMH of asthma, breast cancer remission 8 years, HTN, GERD, here with c/o eating tacos for dinner at [employer]ri[employer] function last night then woke up at 3am with upper abdominal pain and nausea and diarrhea. Pain is in epigastric area. MD elicited complaint: abdominal pain Pertinent past history: none Onset (ago): hour(s) (started 3am) Pain Consistency: constant Location: epigastric Severity: moderate Quality: aching Radiation: none Migration to: no migration Exacerbating factors: eating and movement Relieving factors: nothing Context: possible food poisoning Associated symptoms: nausea and diarrhea Related Data Home Medications Medication Instructions Recorded Confirmed hydroxyzine HCl 10 mg tablet 10 mg PO BEDTIME 08/06/21 02/17/23 ibuprofen 600 mg tablet 600 mg PO Q6H PRN Pain 08/06/21 02/17/23 omeprazole 20 mg tablet,delayed 20 mg PO DAILY 08/06/21 02/17/23 release ascorbic acid (vitamin C) 25 mg 10 mg PO DAILY 01/30/22 02/17/23 tablet cholecalciferol (vitamin D3) 25 25 mcg PO DAILY 02/17/23 02/17/23 mcg (1,000 unit) capsule (Vitamin D3) lisinopril 30 mg tablet 30 mg PO DAILY 02/17/23 02/17/23 Previous Rx's Medication Instructions Recorded cyclobenzaprine 10 mg tablet 10 mg PO Q8H #14 tabs 05/16/22 albuterol sulfate 90 mcg/actuation 2 puff inhalation Q4-6H PRN 02/26/23 aerosol inhaler (ProAir HFA) shortness of breath or wheezing #8.5 grams benzonatate 200 mg capsule 200 mg PO TID PRN cough #30 caps 02/26/23 prednisone 20 mg tablet 40 mg (2 x 20 mg) PO DAILY #10 tabs 02/26/23 ondansetron 4 mg disintegrating 4 mg PO Q8H PRN nausea and 12/17/23 tablet vomiting #20 tabs oxycodone 5 mg tablet 5 mg PO Q8H PRN pain #7 tabs 12/17/23 Allergies Allergy/AdvReac Type Severity Reaction Status Date / Time morphine [MORPHINE] AdvReac Mild NAUSEA & Verified 12/17/23 09:40 VOMITING Review of Systems Review of Systems Constitutional : No Weight loss, No Fever, No Chills ENT/Mouth : No sore throat, No Rhinorrhea Eyes: No Swelling, No Redness Cardiovascular : No Chest Pain, No SOB, NoEdema Respiratory : No Cough, No Sputum, No Wheezing Gastrointestinal : Positive Nausea, Positive Vomiting, no Diarrhea, positive abdominal Pain, No Hematochezia, No Melena Genitourinary : No Dysuria, No Urinary Frequency, No Hematuria, No Urgency Musculoskeletal : No joint pain, No Myalgias, No Joint Swelling Skin : No Skin Lesions, No rash Neuro : No Weakness, No Numbness, No Dizziness, No Headache Psych : No Anxiety/Panic, No Depression All other systems reviewed and are negative. [facility] [place] Past Medical History Attestation statement: The following information was validated with the patient. Source: old records reviewed Medical History Sebaceous cyst Rotator cuff dysfunction Depression Osteoarthritis of both hands Internal hemorrhoids Diverticulitis HTN (hypertension) Surgical History H/O: hysterectomy Family History Family History Mother Breast cancer Sister Breast cancer Social History Social History Household Members: Significant Other Housing: Apartment Are you a primary director of managed care to a significant other at home: No Do you presently have visiting nurse or other home services: No Alcohol intake: never Patient Tobacco Use Status: Former Tobacco user Quit Date: 2013 Tobacco use type: Cigarette Smoked in Last 30 Days: No Use of substances other than those prescribed or required for medical reasons: No Advance Directives: No service: No Current occupational status: disabled Physical Exam ED Vital Signs: Vital Signs - 24 hr 12/17/23 09:40 12/17/23 10:47 Temperature 98 F 98.2 F Pulse Rate 77 72 Respiratory Rate 19 18 Blood Pressure 144/72 H 175/78 H Pulse Oximetry 98 95 Oxygen Delivery Method Room Air Room Air BMI result Body Mass Index 35.1 Appearance: Alert. Oriented X3. No acute distress. Eyes: Pupils equal, round and reactive to light. ENT: Pharynx normal. Neck: Normal inspection. Neck supple. CVS: Normal heart rate and rhythm. Pulses normal. Respiratory: No respiratory distress. Breath sounds normal. Abdomen: Soft and moderate epigastric pain with no rebound neg caldwell's Skin: Skin warm and dry. Normal skin color. Normal skin turgor. Extremities: No lower extremity edema. No calf ttp Neuro: Oriented X 3. No motor deficit. No sensory deficit. Medical Decision Making Medical Decision Making MDM Narrative: 68 yo female with PMH of asthma, breast cancer remission 8 years, HTN, GERD here with c/o upper abdominal pain nausea and diarrhea at this time will obtain basic labs, IV morphine for pain with nausea mediations and US to evaluate the gallbladder. Possible enteritis, pancreatitis, gastritis, food poisoning. Differential Diagnosis Differential Diagnoses: The differential diagnosis associated with the presentation includes enteritis, pancreatitis, gastritis, food poisoning. Admission/Observation Consideration of admission/observation: Escalation of care including admission/observation considered feels much better symptoms resolved no diarrhea here Lab Data [facility] Lab Attestation statement: I reviewed the patient's lab results. 12/17/23 10:35 12/17/23 10:35 Labs: Lab Results 12/17/23 12/17/23 Range/Units 10:35 10:57 WBC 10.1 (4.8-10.8) X10*3/uL RBC 4.48 (4.20-5.50) X10*6/uL Hgb 13.4 (12.0-16.0) g/dl Hct 40.2 (37.0-47.0) % MCV 89.7 (80.0-98.0) fL MCH 29.9 (27.0-33.0) pg MCHC 33.3 (31.0-35.0) g/dl RDW 13.1 (11.0-16.0) % Plt Count 205 (160-400) X10*3/uL MPV 10.3 (9.4-12.3) fL Immature Gran % (Auto) 0.5 H (0.0-0.4) % Neut % (Auto) 80.0 H (45-73) % Lymph % (Auto) 10.6 L (20-40) % Mccracken % (Auto) 7.4 (2-11) % Eos % (Auto) 1.0 (0-4) % Baso % (Auto) 0.5 (0-2) % Lymph # (Auto) 1.1 L (1.2-4.9) X10*3/uL [place]racken # (Auto) 0.7 (0.1-1.2) X10*3/uL Eos # (Auto) 0.1 (0.0-0.4) X10*3/uL Baso # (Auto) 0.1 (0.0-0.2) X10*3/uL Abs Immat Gran (auto) 0.05 H (0.00-0.03) X10*3/uL Absolute Neuts (auto) 8.0 (2.0-8.3) x10*3/uL Absolute Nucleated RBC 0.000 (0.0-0.012) X10*3/uL Nucleated RBC % (auto) 0.0 (0.0-0.2) /100WBC Sodium 141 (135-145) mmol/L Potassium 3.5 (3.3-5.1) mmol/L Chloride 109 H (96-108) mmol/L Carbon Dioxide 26 (22-29) mmol/L Anion Gap 10 L (12-20) BUN 15 (9-16) mg/dL Creatinine 0.73 (0.5-1.4) mg/dL Estim Creat Clear Calc 77.6 Estimated GFR > 60 Random Glucose 110 (60-115) mg/dL Calcium 9.1 (8.4-10.2) mg/dL Magnesium 1.6 (1.6-2.6) mg/dL Total Bilirubin 0.6 (0.0-1.0) mg/dL Direct Bilirubin 0.2 (0.0-0.5) mg/dL AST 13 (5-31) U/L ALT 14 (0-31) U/L Alkaline Phosphatase 93 (39-117) U/L Troponin I High Sens < 2.7 (<3.5-17.0) ng/L Total Protein 6.4 L (6.5-8.0) g/dL Albumin 4.0 (3.5-5.0) g/dL Lipase 22 (8-78) U/L Urine Color Yellow Urine Appearance Clear Urine pH 6.5 (5.0-9.0) Ur Specific [place] 1.020 (1.005-1.025) Urine Protein Negative (Neg-Trace) mg/dL Urine Glucose (UA) Negative (Negative) mg/dL Urine Ketones Negative (Negative) mg/dL Urine Blood Negative (Negative) Urine Nitrite Negative (Negative) Ur Leukocyte Esterase Negative (Negative) Independent Interpretation I performed an independent interpretation of an: EKG and Ultrasound (stones but no GB wall thickening) Interpretation: Rate: 76 Rhythm: NSR Marcell: normal Normal P waves. Normal JESSICA. Normal QRS complex. ST T wave : normal no MELANIA, inverated t waves and nonspecific ST T waves changes V1-V4 qTC: normal prior studies: no sig change from priors The study has been interpreted contemporaneously by me. . Radiology Impression Discussion of test interpretation with radiology: I have reviewed the radiologist's reading. External Record Review External record reviewed: Inpatient record Prescription Management I considered prescription management with: Pain Medication and Other Medications Administered Discontinued Medications Generic Name Dose Route Start Last Admin Trade Name Freq PRN Reason Stop Dose Admin Sodium Chloride 1,000 mls @ 999 mls/hr 12/17/23 10:00 12/17/23 10:49 Ns IV 12/17/23 11:00 999 mls/hr .Q1H1M YANETH Administration Morphine Sulfate 2 mg 12/17/23 10:00 12/17/23 10:50 Morphine Sulfate 2 Mg/Ml Cartridge IVPUSH 12/17/23 10:01 Not Given ONCE ONE Protocol Ondansetron HCl 4 mg 12/17/23 09:57 12/17/23 10:48 Ondansetron Hcl 4 Mg/2 Ml Vial IVPUSH 12/17/23 09:58 4 mg ONCE ONE Administration Oxycodone HCl 5 mg 12/17/23 11:13 12/17/23 11:20 Oxycodone Hcl Immed Release 5 Mg Tablet PO 12/17/23 11:14 5 mg ONCE ONE Administration Discharge Plan Discharge Clinical Impression: Biliary colic Gastritis Qualifiers: Gastritis type: unspecified gastritis Chronicity: acute Gastritis bleeding: w ithout bleeding Qualified Code(s): K29.00 - Acute gastritis without bleeding Patient Disposition: Home, Self-Care Instructions: Gastritis (ED), Biliary Colic (ED) Additional Instructions: stones in gallbladder but no signs of infection. return for worsening pain, fevers, vomiting, blood in stool not able to eat or drink. worsening symptoms or any other concerns. eat a bland diet for 24 hours. stay hydrated. Piedras en la ves?cula biliar tiana sin signos de infecci?n. Regrese si el dolor empeora, fiebre, v?mitos, sina en las heces y no puede comer ni beber. empeoramiento de los s?ntomas o cualquier otra preocupaci?n. comer airam dieta blanda cecilia 24 horas. Mantente hidratado. Prescriptions: New ondansetron 4 mg tablet,disintegrating 4 mg PO Q8H PRN (Reason: nausea and vomiting) Qty: 20 0RF oxycodone 5 mg tablet 5 mg PO Q8H PRN (Reason: pain) Qty: 7 0RF Rx Instructions: Partial Fill upon patient request. No Action ibuprofen 600 mg Tablet 600 mg PO Q6H PRN (Reason: Pain) hydroxyzine HCl 10 mg Tablet 10 mg PO BEDTIME omeprazole 20 mg Tablet,Delayed Release (Dr/Ec) 20 mg PO DAILY Vitamin C 25 mg Tablet 10 mg PO DAILY lisinopril 30 mg tablet 30 mg PO DAILY cholecalciferol (vitamin D3) [Vitamin D3] 25 mcg (1,000 unit) Capsule 25 mcg PO DAILY cyclobenzaprine 10 mg tablet 10 mg PO Q8H Qty: 14 0RF benzonatate 200 mg capsule 200 mg PO TID PRN (Reason: cough) Qty: 30 0RF albuterol sulfate [ProAir HFA] 90 mcg/actuation HFA aerosol inhaler 2 puff inhalation Q4-6H PRN (Reason: shortness of breath or wheezing) Qty: 8.5 0RF prednisone 20 mg tablet 40 mg PO DAILY Qty: 10 0RF Print Language: Slovenian
[2023-12-17 10:43] LABS: MANUAL DIFF FLAG NO
[2023-12-17 10:45] LABS: Basophils Absolute Auto 0.1 X10*3/uL (0.0-0.2); Basophils Percent Auto 0.5 % (0-2); Eosinophils Absolute Auto 0.1 X10*3/uL (0.0-0.4); Hematocrit 40.2 % (37.0-47.0); Hemoglobin 13.4 g/dl (12.0-16.0); Imm Gran Abs Auto 0.05 X10*3/uL (0.00-0.03); Imm Gran Pct Auto 0.5 % (0.0-0.4); Lymphocytes Absolute Auto 1.1 X10*3/uL (1.2-4.9); Lymphocytes Percent Auto 10.6 % (20-40); Mean Corpuscular HGB Conc 33.3 g/dl (31.0-35.0); Mean Corpuscular Hemoglobin 29.9 pg (27.0-33.0); Mean Corpuscular Volume 89.7 fL (80.0-98.0); Mean Platelet Volume 10.3 fL (9.4-12.3); Monocytes Absolute Auto 0.7 X10*3/uL (0.1-1.2); Monocytes Percent Auto 7.4 % (2-11); Platelet Count 205 X10*3/uL (160-400); Red Blood Count 4.48 X10*6/uL (4.20-5.50); Red Cell Distribution Width 13.1 % (11.0-16.0); White Blood Count 10.1 X10*3/uL (4.8-10.8)
[2023-12-17 10:47] VITALS: BP 175/78; PULSE 72; RESP 18; TEMP 36.8; O2SAT 95
[2023-12-17] MEDS: ondansetron HCL 4 MG/2 ML VIAL IVPUSH (10:48)
[2023-12-17] MEDS: 0.9 % Sodium Chloride 1,000 ML 999 ML IV (10:49)
[2023-12-17 11:01] LABS: Alanine Aminotransferase 14 U/L (0-31); Alkaline Phosphatase 93 U/L (39-117); Anion Gap 10 (12-20); Aspartate Amino Transferase 13 U/L (5-31); Bilirubin Direct 0.2 mg/dL (0.0-0.5); Bilirubin Total 0.6 mg/dL (0.0-1.0); Blood Urea Nitrogen 15 mg/dL (9-16); Calcium 9.1 mg/dL (8.4-10.2); Carbon Dioxide 26 mmol/L (22-29); Chloride 109 mmol/L (96-108); Creatinine Clr Calc Pharmacy 77.6; Estimated Glomerular Filt Rate > 60; Glucose Random 110 mg/dL (60-115); Lipase 22 U/L (8-78); Magnesium 1.6 mg/dL (1.6-2.6); Potassium 3.5 mmol/L (3.3-5.1); Sodium 141 mmol/L (135-145); Total Protein 6.4 g/dL (6.5-8.0)
[2023-12-17 11:08] LABS: Troponin-I High Sensitivity < 2.7 ng/L (<3.5-17.0)
[2023-12-17 11:10] LABS: Appearance Urine Clear; Color Urine Yellow; Glucose Urine UA Negative (Negative); Leukocyte Esterase Urine Negative (Negative); Nitrite Urine Negative (Negative); PH 6.5 (5.0-9.0); Urine Blood Negative (Negative); Urine Ketones Negative (Negative); Urine Protein Negative (Neg-Trace)
[2023-12-17] MEDS: oxyCODONE HCl Immed Release 5 MG TABLET PO (11:20)
== END 2023-12-17 12:34 | disposition home or self-care (01) ==
PROVIDERS: Emergency Provider Emergency Medicine; PCP Family Medicine
DX: K29.00 Acute gastritis without bleeding (principal); K80.50 Calculus of bile duct without cholangitis or cholecystitis without obstruction; I10 Essential (primary) hypertension
CPT/HCPCS: 36415; 76700; 80048; 80076; 81003; 83690; 83735; 84484; 85025; 93005; 96361; 96374; 99284; 99285; J2270; J2405

== ENCOUNTER → 2023-12-17 09:58 | Outpatient (BNV) | payer OTHER, SELFPAY | PROVIDERS: Emergency Provider Emergency Medicine; PCP Family Medicine; Visit Provider Internal Medicine | DX: R94.31 Abnormal electrocardiogram [ECG] [EKG] (principal) | CPT/HCPCS: 93010 ==

== ENCOUNTER 2024-01-06 17:24 | Outpatient (REF) | payer OTHER, SELFPAY | END 2024-01-06 17:25 | disposition home or self-care (01) | LOC: HO.HHCLNP 17:24 | PROVIDERS: Visit Provider Emergency Medicine | DX: R10.10 Upper abdominal pain, unspecified (principal) | CPT/HCPCS: 87338 ==

== ENCOUNTER 2024-01-10 19:20 | Emergency (ER) | payer OTHER, SELFPAY ==
--- NOTE | 2024-01-10 | ECG_ITS ---
Test Reason : CHEST PAIN Blood Pressure : / mmHG Vent. Rate : 066 BPM Atrial Rate : 066 BPM P-R Int : 154 ms QRS Dur : 074 ms QT Int : 398 ms P-R-T Axes : 040 049 048 degrees QTc Int : 417 ms Artifact in tracing Normal sinus rhythm Normal ECG When compared with ECG of 17-DEC-2023 10:33, Nonspecific T wave abnormality, improved in Anterior leads Referred By: Generic ED Physician Electronically Signed By:ESTRADA SNYDER
[2024-01-10 19:45] VITALS: BP 162/62; PULSE 64; RESP 18; TEMP 36.8; O2SAT 97; BMI 36.0
--- NOTE | 2024-01-10 20:01 | MHC.EDTECH ---
Patient brought into triage area,EKG taken per order and signed by provider,labs drawn and sen to lab.
[2024-01-10 20:08] LABS: MANUAL DIFF FLAG NO
[2024-01-10 20:10] LABS: Basophils Absolute Auto 0.1 X10*3/uL (0.0-0.2); Basophils Percent Auto 0.9 % (0-2); Eosinophils Absolute Auto 0.1 X10*3/uL (0.0-0.4); Eosinophils Percent Auto 2.4 % (0-4); Hematocrit 40.4 % (37.0-47.0); Hemoglobin 13.5 g/dl (12.0-16.0); Imm Gran Abs Auto 0.02 X10*3/uL (0.00-0.03); Imm Gran Pct Auto 0.4 % (0.0-0.4); Lymphocytes Absolute Auto 2.4 X10*3/uL (1.2-4.9); Lymphocytes Percent Auto 44.4 % (20-40); Mean Corpuscular HGB Conc 33.4 g/dl (31.0-35.0); Mean Corpuscular Hemoglobin 30.2 pg (27.0-33.0); Mean Corpuscular Volume 90.4 fL (80.0-98.0); Mean Platelet Volume 10.7 fL (9.4-12.3); Monocytes Absolute Auto 0.7 X10*3/uL (0.1-1.2); Monocytes Percent Auto 12.2 % (2-11); Neutrophils Absolute Auto 2.2 x10*3/uL (2.0-8.3); Neutrophils Percent Auto 39.7 % (45-73); Platelet Count 207 X10*3/uL (160-400); Red Blood Count 4.47 X10*6/uL (4.20-5.50); Red Cell Distribution Width 12.9 % (11.0-16.0); White Blood Count 5.4 X10*3/uL (4.8-10.8)
[2024-01-10 20:23] LABS: Anion Gap 13 (12-20); Blood Urea Nitrogen 12 mg/dL (9-16); Calcium 9.2 mg/dL (8.4-10.2); Carbon Dioxide 29 mmol/L (22-29); Chloride 104 mmol/L (96-108); Creatinine Clr Calc Pharmacy 68.3; Estimated Glomerular Filt Rate > 60; Glucose Random 101 mg/dL (60-115); Potassium 3.7 mmol/L (3.3-5.1); Sodium 142 mmol/L (135-145)
[2024-01-10 20:34] LABS: Troponin-I High Sensitivity < 2.7 ng/L (<3.5-17.0)
--- NOTE | 2024-01-10 22:29 | ED.CHESTPAIN ---
HPI - Chest Pain General Chief Complaint: Chest Pain Stated Complaint: Chest pain/SOB Time Seen by Provider: 01/10/24 22:29 History of Present Illness HPI narrative: The patient is a 68-year-old female who has been feeling unwell for about 4 days. She has had some chest discomfort and pain with breathing. She has had a cough. She feels congested. She also feels that she has facial congestion and a headache. She does not know if she has had a fever but she thinks she probably has. No nausea or vomiting. No pain or swelling in her legs. Related Data Home Medications Medication Instructions Recorded Confirmed hydroxyzine HCl 10 mg tablet 10 mg PO BEDTIME 08/06/21 02/17/23 ibuprofen 600 mg tablet 600 mg PO Q6H PRN Pain 08/06/21 02/17/23 omeprazole 20 mg tablet,delayed 20 mg PO DAILY 08/06/21 02/17/23 release ascorbic acid (vitamin C) 25 mg 10 mg PO DAILY 01/30/22 02/17/23 tablet cholecalciferol (vitamin D3) 25 25 mcg PO DAILY 02/17/23 02/17/23 mcg (1,000 unit) capsule (Vitamin D3) lisinopril 30 mg tablet 30 mg PO DAILY 02/17/23 02/17/23 Previous Rx's Medication Instructions Recorded cyclobenzaprine 10 mg tablet 10 mg PO Q8H #14 tabs 05/16/22 albuterol sulfate 90 mcg/actuation 2 puff inhalation Q4-6H PRN 02/26/23 aerosol inhaler (ProAir HFA) shortness of breath or wheezing #8.5 grams benzonatate 200 mg capsule 200 mg PO TID PRN cough #30 caps 02/26/23 prednisone 20 mg tablet 40 mg (2 x 20 mg) PO DAILY #10 tabs 02/26/23 ondansetron 4 mg disintegrating 4 mg PO Q8H PRN nausea and 12/17/23 tablet vomiting #20 tabs oxycodone 5 mg tablet 5 mg PO Q8H PRN pain #7 tabs 12/17/23 albuterol sulfate 90 mcg/actuation 2 puff inhalation Q4-6H PRN 01/10/24 aerosol inhaler shortness of breath or wheezing #8.5 grams Allergies Allergy/AdvReac Type Severity Reaction Status Date / Time morphine [MORPHINE] AdvReac Mild NAUSEA & Verified 12/17/23 09:40 VOMITING Review of Systems Review of Systems: Yes all other systems are reviewed and are negative [facility] Past Medical History Medical History Sebaceous cyst Rotator cuff dysfunction Depression Osteoarthritis of both hands Internal hemorrhoids Diverticulitis HTN (hypertension) Surgical History H/O: hysterectomy Family History Family History Mother Breast cancer Sister Breast cancer Social History Social History Household Members: Significant Other Housing: Apartment Are you a primary long term care social worker to a significant other at home: No Do you presently have visiting nurse or other home services: No Alcohol intake: never Patient Tobacco Use Status: Former Tobacco user Quit Date: 2013 Tobacco use type: Cigarette Advance Directives: No Advance Directives Information Provided: No service: No Current occupational status: disabled Physical Exam Vital Signs: Vital Signs: Last Vital Signs Temp 98.0 F 01/11/24 00:16 Pulse 60 01/11/24 00:16 Resp 16 01/11/24 00:16 BP 160/77 H 01/11/24 00:16 Pulse Ox 97 01/11/24 00:16 O2 Del Method Room Air 01/11/24 00:16 BMI result Body Mass Index 36.0 Const: Other: The patient is awake and alert. She does not appear in acute distress. HEENT: Other: Face is symmetrical. Mucous membranes moist. Eyes: Other: Pupils are round equal, conjunctivae clear Neck: Other: No cervical adenopathy, no JVD Chest: Other: There is chest wall tenderness. Palpation reproduces her chest pain. Resp: Other: Mild wheezes bilaterally Cardio: Rate: regular rate Rhythm: regular rhythm Heart sounds: S1 normal heart sound present and S2 normal heart sound present GI: Other: Abdomen is soft and nontender Skin: Other: Skin is dry and unremarkable Neuro: Other: The patient is awake, alert, oriented, and appropriate. Mental status is clear. Cranial nerves grossly intact. Moves all 4 extremities symmetrically. Gait is steady. Grossly neurologically intact. Extrem: Other: No calf swelling or tenderness, no asymmetry, no pitting edema Medications Administered Discontinued Medications Generic Name Dose Route Start Last Admin Trade Name Jorge L PRN Reason Stop Dose Admin Acetaminophen 975 mg 01/10/24 22:42 01/10/24 23:10 Acetaminophen 325 Mg Tablet PO 01/10/24 22:43 975 mg ONCE ONE Administration Albuterol Sulfate 2 puff 01/10/24 22:42 01/10/24 23:10 Albuterol Sulfate 90 Mcg 8 Gm Inhaler INHALE 01/10/24 22:43 2 puff ONCE ONE Administration Ibuprofen 400 mg 01/10/24 22:42 01/10/24 23:10 Ibuprofen 400 Mg Tablet PO 01/10/24 22:43 400 mg ONCE ONE Administration Medical Decision Making Medical Decision Making [facility] Narrative: The patient is a 68-year-old female who presents with 4 days of symptoms of congestion, cough, chest pain. EKG is unremarkable. Suspicion for an acute coronary syndrome is low. She has tested positive for influenza. Chest x-ray is negative. Other labs unremarkable. I think her symptoms are likely all encompassed by an influenza syndrome. Given that she has had symptoms for 4 days I think oseltamivir would probably not be helpful. Clinically she does not seem remarkably ill. She will be discharged with instructions to treat herself conservatively at home for a viral syndrome. She should return if worse. Lab Data 01/10/24 20:01 01/10/24 20:01 Labs: Lab Results 01/10/24 01/10/24 Range/Units 20:01 21:47 WBC 5.4 (4.8-10.8) X10*3/uL RBC 4.47 (4.20-5.50) X10*6/uL Hgb 13.5 (12.0-16.0) g/dl Hct 40.4 (37.0-47.0) % MCV 90.4 (80.0-98.0) fL MCH 30.2 (27.0-33.0) pg MCHC 33.4 (31.0-35.0) g/dl RDW 12.9 (11.0-16.0) % Plt Count 207 (160-400) X10*3/uL MPV 10.7 (9.4-12.3) fL Immature Gran % (Auto) 0.4 (0.0-0.4) % Neut % (Auto) 39.7 L (45-73) % Lymph % (Auto) 44.4 H (20-40) % [place] % (Auto) 12.2 H (2-11) % Eos % (Auto) 2.4 (0-4) % Baso % (Auto) 0.9 (0-2) % Lymph # (Auto) 2.4 (1.2-4.9) X10*3/uL [place] # (Auto) 0.7 (0.1-1.2) X10*3/uL Eos # (Auto) 0.1 (0.0-0.4) X10*3/uL Baso # (Auto) 0.1 (0.0-0.2) X10*3/uL Abs Immat Gran (auto) 0.02 (0.00-0.03) X10*3/uL Absolute Neuts (auto) 2.2 (2.0-8.3) x10*3/uL Absolute Nucleated RBC 0.000 (0.0-0.012) X10*3/uL Nucleated RBC % (auto) 0.0 (0.0-0.2) /100WBC Sodium 142 (135-145) mmol/L Potassium 3.7 (3.3-5.1) mmol/L Chloride 104 (96-108) mmol/L Carbon Dioxide 29 (22-29) mmol/L Anion Gap 13 (12-20) BUN 12 (9-16) mg/dL Creatinine 0.84 (0.5-1.4) mg/dL Estim Creat Clear Calc 68.3 Estimated GFR > 60 Random Glucose 101 (60-115) mg/dL Calcium 9.2 (8.4-10.2) mg/dL Troponin I High Sens < 2.7 (<3.5-17.0) ng/L Influenza Type A (PCR) POSITIVE A (Negative) Influenza Type B (PCR) NEGATIVE (Negative) RSV RNA Qual (PCR) NEGATIVE (Negative) SARS-CoV-2 RNA (RT-PCR) NEGATIVE (Negative) Independent Interpretation I performed an independent interpretation of an: EKG Interpretation: EKG at 9026 shows normal sinus rhythm at 66 beats per minute. No acute ischemic changes. Discharge Plan Discharge Clinical Impression: Influenza A Patient Disposition: Home, Self-Care Instructions: Influenza (ED), How to Use a Metered-Dose Inhaler and a Spacer (ED) Additional Instructions: You tested positive for influenza today. For the most part there is no specific treatment for the flu. Please rest and take it easy. You will likely feel rotten for a few days. You may use acetaminophen as needed for discomfort. I have sent a prescription for an albuterol inhaler to your pharmacy which you may use to help with any cough or difficulty breathing. Please stay in touch with your regular doctors for additional advice as needed. You should wear a mask when in contact with other people until you are feeling significantly better. Return to the emergency room if significantly worse. Prescriptions: New albuterol sulfate 90 mcg/actuation HFA aerosol inhaler 2 puff inhalation Q4-6H PRN (Reason: shortness of breath or wheezing) Qty: 8.5 0RF No Action ibuprofen 600 mg Tablet 600 mg PO Q6H PRN (Reason: Pain) hydroxyzine HCl 10 mg Tablet 10 mg PO BEDTIME omeprazole 20 mg Tablet,Delayed Release (Dr/Ec) 20 mg PO DAILY Vitamin C 25 mg Tablet 10 mg PO DAILY lisinopril 30 mg tablet 30 mg PO DAILY cholecalciferol (vitamin D3) [Vitamin D3] 25 mcg (1,000 unit) Capsule 25 mcg PO DAILY cyclobenzaprine 10 mg tablet 10 mg PO Q8H Qty: 14 0RF benzonatate 200 mg capsule 200 mg PO TID PRN (Reason: cough) Qty: 30 0RF albuterol sulfate [ProAir HFA] 90 mcg/actuation HFA aerosol inhaler 2 puff inhalation Q4-6H PRN (Reason: shortness of breath or wheezing) Qty: 8.5 0RF prednisone 20 mg tablet 40 mg PO DAILY Qty: 10 0RF ondansetron 4 mg tablet,disintegrating 4 mg PO Q8H PRN (Reason: nausea and vomiting) Qty: 20 0RF oxycodone 5 mg tablet 5 mg PO Q8H PRN (Reason: pain) Qty: 7 0RF Rx Instructions: Partial Fill upon patient request. Referrals: Margo Daniel DO [Primary Care Provider] - (Influenza A) Interventions: ED Discharge Assessment Last Done: 01/11/24 00:16 Discharge Date/Time: 01/11/24 00:20
[2024-01-10 22:31] LABS: Influenza A PCR POSITIVE (Negative); Influenza B PCR NEGATIVE (Negative); Resp Syncy Virus RNA Qual PCR NEGATIVE (Negative); SARS COV2 PCR INHOUSE NEGATIVE (Negative)
[2024-01-10 22:42] VITALS: BP 166/77; PULSE 59; RESP 17; TEMP 36.7; O2SAT 95
[2024-01-10] MEDS: Acetaminophen 325 MG TABLET 975 MG PO (23:10)
[2024-01-10] MEDS: Ibuprofen 400 MG TABLET PO (23:10)
[2024-01-10] MEDS: Albuterol Sulfate 90 MCG 8 GM INHALER 2 PUFF INHALE (23:10)
[2024-01-11 00:16] VITALS: BP 160/77; PULSE 60; RESP 16; TEMP 36.7; O2SAT 97
== END 2024-01-11 00:20 | disposition home or self-care (01) ==
PROVIDERS: Emergency Provider Emergency Medicine; PCP Family Medicine
DX: J10.1 Influenza due to other identified influenza virus with other respiratory manifestations (principal); R07.89 Other chest pain; R06.02 Shortness of breath; Z20.822 Contact with and (suspected) exposure to COVID-19; Z11.52 Encounter for screening for COVID-19; Z79.899 Other long term (current) drug therapy
CPT/HCPCS: 0241U; 36415; 80048; 84484; 85025; 93005; 99285

== ENCOUNTER → 2024-01-10 19:26 | Outpatient (BNV) | payer OTHER, SELFPAY | PROVIDERS: Emergency Provider Emergency Medicine; PCP Family Medicine; Visit Provider Internal Medicine | DX: R07.9 Chest pain, unspecified (principal) | CPT/HCPCS: 93010 ==

== ENCOUNTER 2024-01-15 11:18 | Outpatient (AMB) | payer OTHER, SELFPAY ==
--- NOTE | 2024-01-15 11:19 | A.OFFVIS_ITS ---
Intake Vital Signs 01/15/24 11:20 Height 5 ft 2 in Weight 196 lb 10.437 oz BMI 36.0 BP 160/65 H Blood Pressure Location Rt brachial Position Sitting Intake Visit Reasons: upper abdominal pain,gallstones Intake Note: This patient presents for [facility] ER follow-up for upper abdominal pain, gallstones. Patient c/o; reports RUQ pain, reports loss of appetite and nausea, reports she has Influenza so she is unsure if her symtomps are from the flu or gallstones. Sludge Control Attendant Required: Yes Sludge Control Attendant Language: Prefabricated Houses Trimmer Name: Love Information Interpreted: non-clinical & clinical Accompanied by: Self / Same As Patient Allergies morphine [MORPHINE] Adverse Reaction (Mild, Verified 01/15/24 11:30) NAUSEA & VOMITING Medication List - Last Reconciled 01/15/24 by Avelino Price MD albuterol sulfate 90 mcg/actuation (ProAir HFA) 2 puffs inhalation Q4-6H PRN albuterol sulfate 90 mcg/actuation 2 puffs inhalation Q4-6H PRN ascorbic acid (vitamin C) 10 mg PO DAILY benzonatate 200 mg PO TID PRN cholecalciferol (vitamin D3) (Vitamin D3) 25 mcg PO DAILY cyclobenzaprine 10 mg PO Q8H hydroxyzine HCl 10 mg PO BEDTIME ibuprofen 600 mg PO Q6H PRN lisinopril 30 mg PO DAILY omeprazole 20 mg PO DAILY ondansetron 4 mg PO Q8H PRN oxycodone 5 mg PO Q8H PRN prednisone 40 mg (2 x 20 mg) PO DAILY HPI upper abdominal pain,gallstones HPI Details [age] year old female referred for gallstones. She describes having this pain on the upper abdomen on and off for the past year now. She feels that this happens after meals. She says that sometimes the pain would be on the right upper quadrant. She went to the ER last month because of this pain. At that time, she says the episodes was ?severe?. This lasted for couple of hours. An ultrasound done showing gallstones without cholecystitis. She was therefore referred to me. She says that she is healthy overall otherwise. [facility] Medical History (Updated 01/15/24 @ 11:43 by Avelino Price MD) Gallstones Sebaceous cyst Rotator cuff dysfunction Depression Osteoarthritis of both hands Internal hemorrhoids Diverticulitis HTN (hypertension) Surgical History H/O: hysterectomy Family History Mother Breast cancer Sister Breast cancer Social History Household Members: Significant Other Housing: Apartment Are you a primary rn managed care to a significant other at home: No Do you presently have visiting nurse or other home services: No Alcohol intake: never Patient Tobacco Use Status: Former Tobacco user Quit Date: 2013 Tobacco use type: Cigarette service: No Current occupational status: disabled Review of Systems Const Denies chills and Denies fever(s) Card Denies chest pain, Denies dyspnea and Denies dyspnea on exertion Resp Denies cough, Denies dyspnea and Denies dyspnea on exertion GI Denies hematochezia and Denies change in bowel habits Denies hematuria Musc Denies back pain and Denies limited range of motion Neuro Denies focal weakness and Denies convulsions Psych Denies depression and Denies mood swings Physical Exam Vital Signs: Last Vital Signs BP 160/65 H 01/15/24 11:20 BMI result Body Mass Index 36.0 Const General: comfortable and no acute distress Orientation/consciousness: patient oriented x3 Neck Neck: Yes no lymphadenopathy Resp Auscultation: clear to auscultation bilaterally Cardio Rhythm: regular rhythm GI Palpation (GI): Soft to palpation, nontender and no guarding Neuro General: patient oriented x3 Assessment & Plan Assessment & Plan (1) Gallstones: Code(s): K80.20 - Calculus of gallbladder without cholecystitis without obstruction Plan: She describes this pain on the epigastric area and right upper quadrant on and off for the past year. I did explain to her that this could be secondary to gallbladder disease with her gallstones in view of the location. I explained the option of proceeding with cholecystectomy. I had a long discussion with her about the technique of laparoscopic cholecystectomy and possible open cholec ystectomy. I reviewed the risks including but not limited to bleeding, infections, injury to bowel, injury to liver and the bile ducts, bile leak, retained stones, in inherent risks of anesthesia, as well as the benefits and alternatives. I did explain to her that there has a small possibility that she will continue have symptoms even after surgery. She understands and states that she wants to proceed with cholecystectomy. Coding Level of Care Code Est Pt Level 3 (27808) Diagnoses Gallstones K80.20
[2024-01-15 11:20] VITALS: BP 160/65; BMI 36.0
== END 2024-01-15 11:41 | disposition home or self-care (01) ==
PROVIDERS: PCP Family Medicine; Referring Provider Family Medicine; Visit Provider Surgery
DX: K80.20 Calculus of gallbladder without cholecystitis without obstruction (principal)
CPT/HCPCS: 99213

== ENCOUNTER → 2024-01-15 11:18 | Outpatient (BNVA) | payer OTHER, SELFPAY | PROVIDERS: PCP Family Medicine; Referring Provider Family Medicine; Visit Provider Surgery | DX: K80.20 Calculus of gallbladder without cholecystitis without obstruction (principal) | CPT/HCPCS: 99212 ==

== ENCOUNTER 2024-01-30 14:35 | Outpatient (REF) | payer OTHER, SELFPAY | END 2024-01-30 14:36 | disposition home or self-care (01) | LOC: HO.MAMMO 14:35 | PROVIDERS: PCP Family Medicine; Visit Provider Family Medicine | DX: Z12.31 Encounter for screening mammogram for malignant neoplasm of breast (principal) | CPT/HCPCS: 77063; 77067 ==

== ENCOUNTER → 2024-01-30 15:00 | Outpatient (BNV) | payer OTHER, SELFPAY | PROVIDERS: PCP Family Medicine; Visit Provider Radiology Diagnostic Radiology | DX: Z12.31 Encounter for screening mammogram for malignant neoplasm of breast (principal) | CPT/HCPCS: 77063; 77067 ==

== ENCOUNTER 2024-03-04 12:11 | Outpatient (REF) | payer OTHER, SELFPAY ==
[2024-03-04 13:02] LABS: MANUAL DIFF FLAG NO
[2024-03-04 13:09] LABS: Basophils Percent Auto 0.5 % (0-2); Eosinophils Absolute Auto 0.1 X10*3/uL (0.0-0.4); Eosinophils Percent Auto 1.8 % (0-4); Hematocrit 41.5 % (37.0-47.0); Hemoglobin 13.9 g/dl (12.0-16.0); Imm Gran Abs Auto 0.03 X10*3/uL (0.00-0.03); Imm Gran Pct Auto 0.4 % (0.0-0.4); Lymphocytes Absolute Auto 1.7 X10*3/uL (1.2-4.9); Lymphocytes Percent Auto 23.1 % (20-40); Mean Corpuscular HGB Conc 33.5 g/dl (31.0-35.0); Mean Corpuscular Hemoglobin 29.7 pg (27.0-33.0); Mean Corpuscular Volume 88.7 fL (80.0-98.0); Mean Platelet Volume 11.3 fL (9.4-12.3); Monocytes Absolute Auto 0.5 X10*3/uL (0.1-1.2); Neutrophils Percent Auto 67.2 % (45-73); Platelet Count 256 X10*3/uL (160-400); Red Blood Count 4.68 X10*6/uL (4.20-5.50); Red Cell Distribution Width 13.6 % (11.0-16.0); White Blood Count 7.4 X10*3/uL (4.8-10.8)
[2024-03-04 13:32] LABS: Estimated Average Glucose 114 mg/dL; Hemoglobin A1c % 5.6 % (<6.0)
[2024-03-04 13:50] LABS: Alanine Aminotransferase 15 U/L (0-31); Albumin Level 4.5 g/dL (3.5-5.0); Alkaline Phosphatase 91 U/L (39-117); Anion Gap 15 (12-20); Aspartate Amino Transferase 15 U/L (5-31); Bilirubin Direct 0.3 mg/dL (0.0-0.5); Bilirubin Total 0.6 mg/dL (0.0-1.0); Blood Urea Nitrogen 14 mg/dL (9-16); Calcium 9.7 mg/dL (8.4-10.2); Carbon Dioxide 27 mmol/L (22-29); Chloride 104 mmol/L (96-108); Cholesterol 126 mg/dL (<200); Estimated Glomerular Filt Rate > 60; Glucose Random 97 mg/dL (60-115); HDL Cholesterol 45 mg/dL (>40); LDL Cholesterol Calculated 57 mg/dL (<100); Potassium 3.8 mmol/L (3.3-5.1); Sodium 142 mmol/L (135-145); Total Protein 7.3 g/dL (6.5-8.0); Triglycerides 120 mg/dL (<150)
[2024-03-04 14:08] LABS: Free T4 (Free Thyroxine) 1.11 ng/dL (0.71-1.85); Thyroid Stimulating Hormone 0.79 uIU/mL (0.32-4.0); Vitamin D 25-OH Total 42.1 ng/mL (>30)
[2024-03-04 14:13] LABS: Creatinine Urine 149.66 mg/dL; Microalbum/Creatinine Ratio Ur 9.3 ug/mg cr (<30)
== END 2024-03-04 12:12 | disposition home or self-care (01) ==
LOC: HO.HHCL 12:11
PROVIDERS: Visit Provider Family Medicine
DX: Z00.00 Encounter for general adult medical examination without abnormal findings (principal); I10 Essential (primary) hypertension; E78.49 Other hyperlipidemia; K21.9 Gastro-esophageal reflux disease without esophagitis; K59.09 Other constipation; C50.912 Malignant neoplasm of unspecified site of left female breast; M25.50 Pain in unspecified joint; F32.A Depression, unspecified
CPT/HCPCS: 36415; 80048; 80061; 80076; 82043; 82306; 82570; 83036; 84439; 84443; 85025; 85027

== ENCOUNTER 2024-03-16 13:33 | Outpatient (AMB) | payer OTHER, SELFPAY ==
--- NOTE | 2024-03-16 13:37 | A.OFFVIS_ITS ---
Vital Signs 03/16/24 13:38 Height 5 ft 2 in Weight 191 lb 12.835 oz BMI 35.1 BP 139/63 Blood Pressure Location Lt brachial Position Sitting Pulse 78 Intake Visit Reasons: Colonoscopy screening Intake Note: Arlene presents in the office as a colonoscopy screening. CC: She states that she has pains in her stomach and acid reflux - denies any irregular bowel movements. Wants to have EGD w/ [facility]. Trade Facilitator Required: No Allergies morphine [MORPHINE] Adverse Reaction (Mild, Verified 03/16/24 13:39) NAUSEA & VOMITING HPI HPI Colonoscopy screening: Details: 68 year old? female with past medical history of breast CA, hypertension, hypercholesteremia, asthma is here today for pre colonoscopy screening.? Patient was sent to us by her PCP.? Had colonoscopy over 15 years ago. Patient reports acid reflux currently on omeprazole for over 2 years. Patient does admit to eat late at night. Moving her bowels without any issues.? ? Denies any personal or family history of gastrointestinal disease, colon polyps, or CRC.? Denies history of difficulty with sedation or anesthesia in the past.? Negative for his tory of sleep apnea.? Denies any history of cardiac, renal, pulmonary, or hepatic disease.?? No history of infectious? diseases like hepatitis A, B, C, HIV or tuberculosis.? Patient is not on any anticoagulation PFSH Medical History Gallstones Sebaceous cyst Rotator cuff dysfunction Depression Osteoarthritis of both hands Internal hemorrhoids Diverticulitis HTN (hypertension) Surgical History Hx of colonoscopy H/O: hysterectomy Family History Mother Breast cancer Sister Breast cancer Social History Household Members: Significant Other Housing: Apartment Are you a primary care team coordinator scheduler to a significant other at home: No Do you presently have visiting nurse or other home services: No Alcohol intake: never Patient Tobacco Use Status: Former Tobacco user Quit Date: 2013 Tobacco use type: Cigarette service: No Current occupational status: disabled Review of Systems Const Denies weight gain and Denies weight loss ENT Reports no additional complaints, Denies dysphagia and Denies odynophagia Card Reports no additional complaints Resp Reports no additional complaints GI Denies abdominal pain, Denies belching, Denies melena, Reports bloating, Denies change in bowel habits, Denies dysphagia, Denies excessive flatus, Denies dyspepsia, Reports heartburn, Denies diarrhea, Denies loose stools, Denies nausea, Denies odynophagia and Denies vomiting Reports no additional complaints Musc Reports no additional complaints Neuro Reports no additional complaints Psych Reports no additional complaints Endo Reports no additional complaints Physical Exam Vital Signs: Last Vital Signs Pulse 78 03/16/24 13:38 BP 139/63 03/16/24 13:38 BMI result Body Mass Index 35.1 Const General: healthy appearing and no acute distress Nutritional Appearance: obese Orientation/consciousness: patient oriented x3 Resp Effort & Inspection: normal respiratory effort, able to speak in complete sentences, no tracheal deviation and symmetric chest movement Auscultation: clear to auscultation bilaterally Cardio Rate: regular rate GI Inspection: Yes normal to inspection, No distended and Yes obesity Palpation (GI): Soft to palpation, not firm, nontender and No hepatosplenomegaly present Auscultation: normal bowel sounds General: Yes no CVA tenderness Back/Spine/Pelvis Back: no CVA tenderness Skin General skin exam: elasticity normal, turgor normal and dry skin Neuro General: patient oriented x3 Psych Appearance: grossly normal Mental Status: mental status grossly normal Assessment & Plan Assessment & Plan (1) Screen for colon cancer: Code(s): Z12.11 - Encounter for screening for malignant neoplasm of colon Plan Patient denies any cardiac or respiratory symptoms.? Denies any issues with anesthesia in the past.? Denies any history of sleep apnea.? No history i nfectious diseases in the past or present.? Not on any anticoagulation therapy.? No family or personal history of colon cancer or polyps.? Patient denies melena, hematochezia, unintentional weight loss or ribbon like stools.? Discussed at length the pre-procedure,? prep, diet & medications as well as what to expect prior, during and after the procedure.?? Stressed the importance of good bowel prep.? Recommended the use of Vaseline or Calmoseptine OTC & baby wipes with bowel movements to promote comfort.? ?Patient will return in 2 months to re-evaluate treatment with different PPI. Patient was encouraged to avoid dietary triggers and late night snacking. Staying upright for minimum 3 hours after meals discussed with patient. Patient will be sent for upper endoscopy. Patient verbalizes understanding and agrees to plan of care.? She was given the opportunity to ask questions and all questions answered.? Medications: New bisacodyl (Dulcolax (bisacodyl)) take 4 tabs at noon the day before your colonoscopy 20 mg (4 x 5 mg) PO ONCE 1 day 4 tabs 0RF Z12.11 - Encounter for screening for malignant neoplasm of colon polyethylene glycol 3350 (Miralax) As directed by gastroenterology department at [facility] 238 grams PO ONCE 238 grams 0RF Z12.11 - Encounter for screening for malignant neoplasm of colon pantoprazole take one tablet half an hour before breakfast 40 mg PO DAILY 30 tabs 2RF K21.9 - Gastro-esophageal reflux disease without esophagitis Coding Level of Care Code New Pt Level 3 (58476) Diagnoses Screen for colon cancer Z12.11 Time Spent (min) 40 Comment 30 minutes spent with patient and additional 10 minutes spent reviewing her records
[2024-03-16 13:38] VITALS: BP 139/63; PULSE 78; BMI 35.1
== END 2024-03-16 14:13 | disposition home or self-care (01) ==
PROVIDERS: PCP Family Medicine; Visit Provider Nurse Practitioner Family
DX: K21.9 Gastro-esophageal reflux disease without esophagitis (principal); Z12.11 Encounter for screening for malignant neoplasm of colon
CPT/HCPCS: 99203

== ENCOUNTER → 2024-03-16 13:33 | Outpatient (BNVA) | payer OTHER, SELFPAY | PROVIDERS: PCP Family Medicine; Visit Provider Nurse Practitioner Family | DX: Z12.11 Encounter for screening for malignant neoplasm of colon (principal); K21.9 Gastro-esophageal reflux disease without esophagitis | CPT/HCPCS: 99202 ==

== ENCOUNTER 2024-06-14 14:38 | Outpatient (AMB) | payer OTHER, SELFPAY ==
--- NOTE | 2024-06-14 14:42 | A.OFFVIS_ITS ---
Vital Signs 06/14/24 14:55 Height 5 ft 2 in Weight 195 lb BMI 35.7 Intake Visit Reasons: re discuss surgery for gallstones Intake Note: This patient presents to re-discuss laparoscopic cholecystectomy. Pt c/o; reports no complaints. 12/17/2023: Abd US Pv Design Engineer Required: Yes Pv Design Engineer Language: Metal Stamping Machine Operator Services: Pv Design Engineer Present Pv Design Engineer Name: Love Information Interpreted: non-clinical & clinical Accompanied by: Self / Same As Patient Allergies morphine [MORPHINE] Adverse Reaction (Mild, Verified 06/14/24 14:55) NAUSEA & VOMITING Medication List - Last Reconciled 06/14/24 by Avelino Price MD albuterol sulfate 90 mcg/actuation (ProAir HFA) 2 puffs inhalation Q4-6H PRN albuterol sulfate 90 mcg/actuation 2 puffs inhalation Q4-6H PRN ascorbic acid (vitamin C) 10 mg PO DAILY atorvastatin 20 mg PO DAILY benzonatate 200 mg PO TID PRN bisacodyl (Dulcolax (bisacodyl)) 20 mg (4 x 5 mg) PO ONCE 1 day cholecalciferol (vitamin D3) (Vitamin D3) 25 mcg PO DAILY cyanocobalamin (vitamin B-12) 1,000 mcg PO DAILY cyclobenzaprine 10 mg PO Q8H hydrochlorothiazide 12.5 mg PO DAILY hydroxyzine HCl 25 mg PO BID lisinopril 30 mg PO DAILY ondansetron 4 mg PO Q8H PRN oxycodone 5 mg PO Q8H PRN pantoprazole 40 mg PO DAILY polyethylene glycol 3350 (Miralax) 238 grams PO ONCE HPI HPI re discuss surgery for gallstones: Details: I had seen her in December, because of gallstones. At that time, she had been to the ER because of right upper quadrant pain. I had actually schedule her for cholecystectomy because of presumed symptomatic gallstones then. However for some reason, she was able unable to schedule for cholecystectomy. She has been following with a neurologist as well because of epigastric pain and she says she is scheduled for an EGD and colonoscopy this July. She now says that she does not have any right upper quadrant pain anymore. [facility] Medical History (Updated 06/14/24 @ 15:01 by Avelino Price MD) Morbid obesity Gallstones Sebaceous cyst Rotator cuff dysfunction Depression Osteoarthritis of both hands Internal hemorrhoids Diverticulitis HTN (hypertension) Surgical History Hx of colonoscopy H/O: hysterectomy Family History Mother Breast cancer Sister Breast cancer Social History Household Members: Significant Other Housing: Apartment Are you a primary care clinician to a significant other at home: No Do you presently have visiting nurse or other home services: No Alcohol intake: never Patient Tobacco Use Status: Former Tobacco user Tobacco use type: Cigarette service: No Current occupational status: disabled Review of Systems Const Denies chills and Denies fever(s) Card Denies chest pain, Denies dyspnea and Denies dyspnea on exertion Resp Denies cough, Denies dyspnea and Denies dyspnea on exertion GI Denies hematochezia and Denies change in bowel habits Denies hematuria Musc Denies back pain and Denies limited range of motion Neuro Denies focal weakness and Denies convulsions Psych Denies depression and Denies mood swings Physical Exam Vital Signs: BMI result Body Mass Index 35.7 Const General: comfortable and no acute distress Orientation/consciousness: patient oriented x3 Neck Neck: Yes no lymphadenopathy Resp Auscultation: clear to auscultation bilaterally Cardio Rhythm: regular rhythm GI Palpation (GI): Soft to palpation, nontender and no guarding Neuro General: patient oriented x3 Assessment & Plan Assessment & Plan (1) Gallstones: Code(s): K80.20 - Calculus of gallbladder without cholecystitis without obstruction Category: Medical Plan: She has known gallstones. I had scheduled her for laparoscopic cholecystectomy last December,. However, she says that she has a longer having any right upper quadrant pain. She is being seen by the firebrick layer because of chronic epigastric pain and is supposed to undergo EGD and colonoscopy in July, I will therefore see her after her EGD and we will rediscuss cholecystectomy depending on the findings then. She is comfortable with the plan. I also advised her on the benefits of weight loss. Coding Level of Care Code Est Pt Level 3 (12805) Diagnoses Gallstones K80.20
[2024-06-14 14:55] VITALS: BMI 35.7
== END 2024-06-14 14:51 | disposition home or self-care (01) ==
PROVIDERS: PCP Family Medicine; Visit Provider Surgery
DX: K80.20 Calculus of gallbladder without cholecystitis without obstruction (principal)
CPT/HCPCS: 99213

== ENCOUNTER → 2024-06-14 14:38 | Outpatient (BNVA) | payer OTHER, SELFPAY | PROVIDERS: PCP Family Medicine; Visit Provider Surgery | DX: K80.20 Calculus of gallbladder without cholecystitis without obstruction (principal) | CPT/HCPCS: 99212 ==

== ENCOUNTER 2024-07-28 11:30 | Day surgery (SDC) | payer OTHER, SELFPAY ==
--- NOTE | 2024-07-27 09:46 | HO.ANESPROP2 ---
Documented by User: Lily Karimi NP 07/27/24 09:47 HPI - Anesthesia Eval Consult details Narrative: 69yo F for Upper Endoscopy and Colonoscopy PMFSH Active Problems Active Problems: All Active Problems Morbid obesity (Acute) Gallstones (Acute) Breast CA (Chronic) Past Medical History Medical History (Updated 06/14/24 @ 15:01 by Avelino Price MD) Morbid obesity Gallstones Sebaceous cyst Rotator cuff dysfunction Depression Osteoarthritis of both hands Internal hemorrhoids Diverticulitis HTN (hypertension) Family History Family History Mother Breast cancer Sister Breast cancer Surgical History Surgical History Hx of colonoscopy H/O: hysterectomy Social History Social History Household Members: Significant Other Housing: Apartment Are you a primary memory care program resident to a significant other at home: No Do you presently have visiting nurse or other home services: No Alcohol intake: never Patient Tobacco Use Status: Former Tobacco user Tobacco use type: Cigarette Use of substances other than those prescribed or required for medical reasons: No Have you been hit, kicked, punched, or otherwise hurt by someone within the past year? If so, by whom?: No Are you DNR?: No Advance Directives: No Advance Directives Information Provided: Yes Recently lost weight without trying: No service: No Current occupational status: disabled Meds Allergies Allergy/AdvReac Type Severity Reaction Status Date / Time morphine [MORPHINE] AdvReac Mild NAUSEA & Verified 06/14/24 14:55 VOMITING Home Medications ?Medication ?Instructions ?Recorded ?Confirmed ?Last Taken ?Type ascorbic acid (vitamin C) 25 mg 10 mg PO DAILY 01/30/22 06/14/24 Unknown History tablet cholecalciferol (vitamin D3) 25 25 mcg PO DAILY 02/17/23 06/14/24 Unknown History mcg (1,000 unit) capsule (Vitamin D3) lisinopril 30 mg tablet 30 mg PO DAILY 02/17/23 06/14/24 Unknown History atorvastatin 20 mg tablet 20 mg PO DAILY 03/16/24 06/14/24 Unknown History cyanocobalamin (vitamin B-12) 1,000 mcg PO DAILY 03/16/24 06/14/24 Unknown History 1,000 mcg tablet hydrochlorothiazide 12.5 mg tablet 12.5 mg PO DAILY 03/16/24 06/14/24 Unknown History hydroxyzine HCl 25 mg tablet 25 mg PO BID 03/16/24 06/14/24 Unknown History Assessment and Plan Assessment Anesthesia Assessment: Chart Reviewed Documented by User: Oleg Sandhu MD 07/28/24 12:24 [facility] Past Medical History Medical History (Updated 06/14/24 @ 15:01 by Avelino Price MD) Morbid obesity Gallstones Sebaceous cyst Rotator cuff dysfunction Depression Osteoarthritis of both hands Internal hemorrhoids Diverticulitis HTN (hypertension) Family History Family History Mother Breast cancer Sister Breast cancer Family history of problems with anesthesia: No Surgical History Surgical History Hx of colonoscopy H/O: hysterectomy History of Problems with Anesthesia: No Social History Social History Household Members: Significant Other Housing: Apartment Are you a primary memory care program resident to a significant other at home: No Do you presently have visiting nurse or other home services: No Alcohol intake: never Patient Tobacco Use Status: Former Tobacco user Tobacco use type: Cigarette Use of substances other than those prescribed or required for medical reasons: No Have you been hit, kicked, punched, or otherwise hurt by someone within the past year? If so, by whom?: No Are you DNR?: No Advance Directives: No Advance Directives Information Provided: Yes Recently lost weight without trying: No service: No Current occupational status: disabled Meds Allergies Allergy/AdvReac Type Severity Reaction Status Date / Time morphine [MORPHINE] AdvReac Mild NAUSEA & Verified 06/14/24 14:55 VOMITING Home Medications ?Medication ?Instructions ?Recorded ?Confirmed ?Last Taken ?Type ascorbic acid (vitamin C) 25 mg 10 mg PO DAILY 01/30/22 06/14/24 Unknown History tablet cholecalciferol (vitamin D3) 25 25 mcg PO DAILY 02/17/23 06/14/24 Unknown History mcg (1,000 unit) capsule (Vitamin D3) lisinopril 30 mg tablet 30 mg PO DAILY 02/17/23 06/14/24 Unknown History atorvastatin 20 mg tablet 20 mg PO DAILY 03/16/24 06/14/24 Unknown History cyanocobalamin (vitamin B-12) 1,000 mcg PO DAILY 03/16/24 06/14/24 Unknown History 1,000 mcg tablet hydrochlorothiazide 12.5 mg tablet 12.5 mg PO DAILY 03/16/24 06/14/24 Unknown History hydroxyzine HCl 25 mg tablet 25 mg PO BID 03/16/24 06/14/24 Unknown History Exam Airway Mallampati Class: III TM Dist: <=3cm Neck ROM: Full Denture: Upper and Lower Heart: ok Lungs: ok Assessment and Plan Assessment Anesthesia Assessment: Anesthesia Plan Discussed Final Anesthetic Review Family History of Problems with Anesthesia: No History of Problems with Anesthesia: No NPO: Yes ASA Class: III Final Preanesthetic Review: No Changes in Pt Med Stat, Meds/Allgs Chart Reviewed, Consent Obtained/Reviewed and Anes Risks/Benef Reviewed Patient Risk: Intermediate Procedure Risk: Intermediate Anesthetic Plan Anesthetic Plan: Agree w/ Assess. and Plan and TIVA Disposition: Standard PACU
--- NOTE | 2024-07-28 11:41 | P.HPSUR_ITS ---
Pre-Procedural Eval Section A - 24 Hr Update-Section A only Date of Service: 07/28/24 Section B - Complete if H&P > 30 days Chief Complaint: gerd,screening Relevant Family History (Specify if Yes): No Relevant Social History: None Present Medications: see Short Stay Collaborative assessment Medical History: Significant History (Morbid obesity Gallstones Sebaceous cyst Rotator cuff dysfunction Depression Osteoarthritis of both hands Internal hemorrhoids Diverticulitis HTN (hypertension)) History of Previous Operations: Relevant previous surgery/procedure and date(s) ( Hx of colonoscopy H/O: hysterectomy) Allergies: Allergies Allergy/AdvReac Type Severity Reaction Status Date / Time morphine [MORPHINE] AdvReac Mild NAUSEA & Verified 06/14/24 14:55 VOMITING Review of Systems Sugical H&P ROS: Negative: Constitution, Cardiovascular, Respiratory, N eurological, Psychiatric, Hem-Onc, Allergic/Immunologic, Gastrointestinal, Genitourinary, Musculoskeletal, Integumentary, Endocrine and Eyes/Ears/Nose/Throat Exam Surgical H&P Exam: Normal: HEENT, Normal: Heart, Normal: Lungs, Normal: Extremities, Normal: Abdomen, Normal: Skin and Normal: Neurological Plan Diagnosis/Plan: Unchanged I have reviewed the history and physical and performed a pertinent physical examination on my patient. No changes have occurred unless specified. Time Spent With Patient Time: Total time managing care of this patient today ____ minutes.
[2024-07-28 12:00] VITALS: BP 168/73; PULSE 73; RESP 16; TEMP 36.7; O2SAT 98; BMI 35.0
[2024-07-28] MEDS: Lactated Ringers 1,000 ML 100 ML IVCONT (12:17)
--- NOTE | 2024-07-28 14:53 | P.OPN-COLO_ITS ---
Colonoscopy Operative Note Operative Note Date of Service: 07/28/24 Narrative: Operative Information Procedure Description: EGD, Colonoscopy Indication: GERD, colon screening Anesthesia: MAC FLEXIBLE TRANSORAL UPPER GASTROINTESTINAL ENDOSCOPY AND COLONOSCOPY PROCEDURE NOTE UPPER ENDOSCOPY Consent: Indications for the procedure and potential complications of bleeding, perforation, reaction to medications and missed diagnosis were discussed with the patient and informed consent was obtained. Instrument: Olympus GIF H 190 J mid size upper endoscope Monitoring: Vital signs and clinical assessment, continuous EKG monitoring, Pulse oximetry, Carbon Dioxide monitoring and blood pressure monitoring were done throughout the procedure. Procedure: The patient was placed in the left lateral decubitis position and pre-procedure medications were administered and a bite block was placed. The endoscope was inserted into the mouth and advanced under direct vision to the third part of duodenum. A careful inspection was made as the upper endoscope was withdrawn including a retroflexed examination of the proximal stomach; Findings and interventions are described below. Findings: Larynx:normal Esophagus: GE junction at 38 cm, diaphragm hiatus at 38 cm, mild esophagitis, bx taken from GEJ and distal esophagus Stomach: Patchy erythema Biopsies were obtained. Grade 2 flap valve on retroflexed examination of the cardia. Duodenum: Normal bulb and descending duodenum, bx taken Intervention: Biopsies as noted above, COLONOSCOPY Instrument: Olympus variable stiffness pediatric scope 190L Colonoscopy Monitoring: Vital signs and clinical assessment, continuous EKG monitoring, Pulse oximetry, Carbon Dioxide monitoring and blood pressure monitoring were done throughout the procedure. Colon withdrawal time was 12 minutes. Procedure: The patient was placed in the left lateral decubitis position and pre-procedure medications were administered. After a digital rectal examination of the ano-rectum, the video colonoscope was inserted into the rectum and advanced through the colon to the cecum/TI. The colonoscope was slowly withdrawn in a retrograde panoramic fashion and the colon mucosa was carefully examined including a retroflexed view of the rectum. Findings and interventions are described below. Procedure Difficulty:moderate Findings: Terminal Ileum-normal Cecum:normal Ascending Colon: moderate diverticulosis, 6-8 mm sessile polyp removed with cold snare Transverse Colon -normal Descending Colon:normal, one prominet fold slightyl red and inflammed, bx taken Sigmoid Colon: severe diverticulosis, one polyp 4-5 mm removed with cold forceps Rectum: Retroflexion with small internal hemorrhoids, grade I, 10 mm sessile polyp removed with cold snare with one clip applied for hemostasis Anorectum - normal Colon preparation: [place] Bowel Preparation Scale Right colon; 2 Transverse colon: 2 Left colon; 2 (0 = Unprepared colon segment with mucosa not seen due to solid stool that cannot be cleared. 1 = Portion of mucosa of the colon segment seen, but other areas of the colon segment not well seen due to staining, residual stool and/or opaque liquid. 2 = Minor amount of residual staining, small fragments of stool and/or opaque liquid, but mucosa of colon segment seen well. 3 = Entire mucosa of colon segment seen well with no residual staining, small fragments of stool or opaque liquid) Impression and Post Procedure Diagnosis: Endoscopy Findings: gastritis mild esophagitis Colonoscopy Findings: diverticulosis colon polyps internal hemorrhoids Plan: Await Pathology results Repeat Colonoscopy in 3 years due to polyps or earlier if clinically indicated High fiber diet leaflet avoid straining at stool, epsom salts and sitz bath, anusol supps or cream Above findings were reviewed with the patient and relevant handouts were provided if indicated.
[2024-07-28 14:55] VITALS: BP 112/52; PULSE 70; RESP 16; TEMP 36.1
[2024-07-28 15:10] VITALS: BP 135/57; PULSE 67; RESP 16; O2SAT 94
[2024-07-28 15:25] VITALS: BP 141/57; PULSE 68; RESP 16; TEMP 36.1; O2SAT 95
== END 2024-07-28 15:39 | disposition home or self-care (01) ==
PROVIDERS: PCP Family Medicine; Visit Provider Internal Medicine Gastroenterology
PROC: (CPT 45385; principal; 2024-07-28 12:30)
DX: Z12.11 Encounter for screening for malignant neoplasm of colon (principal); D12.2 Benign neoplasm of ascending colon; D12.4 Benign neoplasm of descending colon; K62.1 Rectal polyp; K57.30 Diverticulosis of large intestine without perforation or abscess without bleeding; K64.0 First degree hemorrhoids; K21.9 Gastro-esophageal reflux disease without esophagitis; K29.50 Unspecified chronic gastritis without bleeding; K20.90 Esophagitis, unspecified without bleeding; K44.9 Diaphragmatic hernia without obstruction or gangrene; I10 Essential (primary) hypertension; E78.00 Pure hypercholesterolemia, unspecified; J45.909 Unspecified asthma, uncomplicated; Z85.3 Personal history of malignant neoplasm of breast; E66.01 Morbid (severe) obesity due to excess calories; Z68.35 Body mass index [BMI] 35.0-35.9, adult; Z79.899 Other long term (current) drug therapy; Z88.5 Allergy status to narcotic agent; Z87.891 Personal history of nicotine dependence; Z98.890 Other specified postprocedural states
CPT/HCPCS: 45385; 45380; 43239; 88305; 88313; 88342; J1100; J1596; J2003; J2704

== ENCOUNTER → 2024-07-28 11:30 | Outpatient (BNV) | payer OTHER, SELFPAY | PROVIDERS: PCP Family Medicine; Visit Provider Internal Medicine Gastroenterology | DX: Z12.11 Encounter for screening for malignant neoplasm of colon (principal); D12.4 Benign neoplasm of descending colon; D12.2 Benign neoplasm of ascending colon; K62.1 Rectal polyp; K57.90 Diverticulosis of intestine, part unspecified, without perforation or abscess without bleeding; K21.00 Gastro-esophageal reflux disease with esophagitis, without bleeding; K29.70 Gastritis, unspecified, without bleeding | CPT/HCPCS: 43239; 45380; 45385 ==

== ENCOUNTER 2024-08-11 10:45 | Outpatient (AMB) | payer OTHER, SELFPAY ==
--- NOTE | 2024-08-11 10:46 | MHC.OFFVIS ---
Vital Signs 08/11/24 10:48 Height 5 ft 2 in Weight 197 lb 15.602 oz BMI 36.2 BP 144/64 H Blood Pressure Location Rt brachial Position Sitting Pulse 64 Pulse Source Pulse Oximeter Pulse Oximetry (%) 97 Oxygen Delivery Method Room Air Intake Visit Reasons: s/p egd/colon Intake Note: Relevant Flags or Indicators ? Requires Television Journalist? Jenny Jacobs presents in office today for a scheduled s/p FUV. Pt still having consults for gallstones w/ Dr. Price [facility]; Since last visit; labs ordered ? none. Rx ordered ? no. Diagnostics/images ordered ? none. Relevant GI Sx as reported per pt; None ? Hx of any recent surgeries? Double w/ Dr. Sparks Television Journalist Required: Yes Television Journalist Services: Television Journalist Present Television Journalist Name: William -- [id number] Information Interpreted: non-clinical & clinical Accompanied by: Self / Same As Patient Allergies morphine [MORPHINE] Adverse Reaction (Mild, Verified 08/11/24 10:53) NAUSEA & VOMITING Medication List - Last Reconciled 08/11/24 by Marisa Brewer, SPLICER MACHINE OPERATOR- albuterol sulfate 90 mcg/actuation 2 puffs inhalation Q4-6H PRN ascorbic acid (vitamin C) 10 mg PO DAILY atorvastatin 20 mg PO DAILY cholecalciferol (vitamin D3) (Vitamin D3) 50 mcg PO DAILY diclofenac sodium 1% 1 ea topical QID esomeprazole magnesium 20 mg PO DAILY hydrochlorothiazide 12.5 mg PO DAILY lisinopril 30 mg PO DAILY sodium,potassium,mag sulfates 17.5-3.13-1.6 gram (Suprep Bowel Prep Kit) DILUTE; drink 1/2 at 6-8 pm and half at 11 PM- 1AM HPI HPI s/p egd/colon: Details: LAST VISIT Screen for colon cancer Plan Patient denies any cardiac or respiratory symptoms.? Denies any issues with anesthesia in the past.? Denies any history of sleep apnea.? No history infectious diseases in the past or present.? Not on any anticoagulation therapy.? No family or personal history of colon cancer or polyps.? Patient denies melena, hematochezia, unintentional weight loss or ribbon like stools.? Discussed at length the pre-procedure,? prep, diet & medications as well as what to expect prior, during and after the procedure.?? Stressed the importance of good bowel prep.? Recommended the use of Vaseline or Calmoseptine OTC & baby wipes with bowel movements to promote comfort.? ?Patient will return in 2 months to re-evaluate treatment with different PPI. Patient was encouraged to avoid dietary triggers and late night snacking. Staying upright for minimum 3 hours after meals discussed with patient. Patient will be sent for upper endoscopy. Patient verbalizes understanding and agrees to plan of care.? She was given the opportunity to ask questions and all questions answered.? Medications New bisacodyl (Dulcolax (bisacodyl)) take 4 tabs at noon the day before your colonoscopy 20 mg (4 x 5 mg) PO ONCE 1 day 4 tabs 0RF Z12.11 polyethylene glycol 3350 (Miralax) As directed by gastroenterology department at [facility] 238 grams PO ONCE 238 grams 0RF Z12.11 pantoprazole take one tablet half an hour before breakfast 40 mg PO DAILY 30 tabs 2RF K21.9 UPPER ENDOSCOPY AND COLONOSCOPY Upper endoscopy Findings: Larynx:normal Esophagus: GE junction at 38 cm, diaphragm hiatus at 38 cm, mild esophagitis, bx taken from GEJ and distal esophagus Stomach: Patchy erythema Biopsies were obtained. Grade 2 flap valve on retroflexed examination of the cardia. Duodenum: Normal bulb and descending duodenum, bx taken Intervention: Biopsies as noted above, Colonoscopy Findings: Terminal Ileum-normal Cecum:normal Ascending Colon: moderate diverticulosis, 6-8 mm sessile polyp removed with cold snare Transverse Colon -normal Descending Colon:normal, one prominet fold slightyl red and inflammed, bx taken Sigmoid Colon: severe diverticulosis, one polyp 4-5 mm removed with cold forceps Rectum: Retroflexion with small internal hemorrhoids, grade I, 10 mm sessile polyp removed with cold snare with one clip applied for hemostasis Anorectum - normal Colon preparation: [place] Bowel Preparation Scale Right colon; 2 Transverse colon: 2 Left colon; 2 (0 = Unprepared colon segment with mucosa not seen due to solid stool that cannot be cleared. 1 = Portion of mucosa of the colon segment seen, but other areas of the colon segment not well seen due to staining, residual stool and/or opaque liquid. 2 = Minor amount of residual staining, small fragments of stool and/or opaque liquid, but mucosa of colon segment seen well. 3 = Entire mucosa of colon segment seen well with no residual staining, small fragments of stool or opaque liquid) Impression and Post Procedure Diagnosis: Endoscopy Findings: gastritis mild esophagitis Colonoscopy Findings: diverticulosis colon polyps internal hemorrhoids Plan: Await Pathology results Repeat Colonoscopy in 3 years due to polyps or earlier if clinically indicated High fiber diet leaflet avoid straining at stool, epsom salts and sitz bath, anusol supps or cream PATHOLOGY RESULTS Addendum #1 Immunostain for H. pylori on B is negative. Additional level with AB/PAS on C is negative for intestinal metaplasia. Controls stain appropriately. Electronically Signed By: Arlene Nunez 08/03/24 [id number] Diagnosis A. Duodenum, biopsy: Duodenal mucosa with preserved villi and no specific change. B. Stomach, biopsy: Gastric antral mucosa with minimal chronic inactive gastritis; negative for intestinal metaplasia and dysplasia. C. Gastroesophageal junction, biopsy: Squamous mucosa with hyperplasia and few intraepithelial eosinophils (up to 2 per high-power field) and columnar mucosa with mild chronic active inflammation, consistent with reflux esophagitis; no intestinal metaplasia identified on initial levels; negative for dysplasia. D. Esophagus, distal, biopsy: Squamous mucosa with no specific change; no columnar mucosa present. E. Colon, descending, polyp: Tubular adenoma; negative for high-grade dysplasia and carcinoma. F. Colon, ascending, polyp: Tubular adenoma; negative for high-grade dysplasia and carcinoma. G. Colon, ascending, prominent fold, biopsy: Tubular adenoma; negative for high-grade dysplasia and carcinoma. H. Colon, rectal polyp: Hyperplastic polyp. Comment: (B): Immunostain for H. pylori pending; addendum to follow. (C): Additional level with AB/PAS stain pending; addendum to follow TODAY'S VISIT Patient is here today for follow-up and to discuss upper endoscopy and colonoscopy results. Patient denies any ill effects from the prep, anesthesia or procedure itself. Patient is going to have another colonoscopy as 1 of the ascending colon prominent folds show tubular adenoma and provider wants to recheck polypectomy side. Patient was also found to have tubular adenoma in descending colon. Moderate diverticulosis throughout the whole colon. Chronic minimal inactive gastritis without intestinal metaplasia or dysplasia, active esophagitis found. Patient stopped taking pantoprazole and was placed on esomeprazole. Patient states that she feels well when taking it. Patient does not have her colonoscopy scheduled yet. Staff called her last week to inform her that she will have repeat colonoscopy. Patient denies melena, hematochezia, unintentional weight loss or ribbon like stools. Patient denies any other GI concerning symptoms. COUNT INCLUDES THE [facility] Medical History (Updated 08/11/24 @ 19:43 by Marisa Brewer [facility]) GERD (gastroesophageal reflux disease) Diverticulosis Tubular adenoma of colon Morbid obesity Gallstones Sebaceous cyst Rotator cuff dysfunction Depression Osteoarthritis of both hands Internal hemorrhoids Diverticulitis HTN (hypertension) Surgical History Hx of colonoscopy H/O: hysterectomy Family History Mother Breast cancer Sister Breast cancer Social History Household Members: Significant Other Housing: Apartment Are you a primary child care team lead to a significant other at home: No Do you presently have visiting nurse or other home services: No Alcohol intake: never Patient Tobacco Use Status: Former Tobacco user Tobacco use type: Cigarette service: No Current occupational status: disabled Physical Exam Vital Signs: Last Vital Signs Pulse 64 08/11/24 10:48 BP 144/64 H 08/11/24 10:48 Pulse Ox 97 08/11/24 10:48 Oxygen Delivery Method Room Air 08/11/24 10:48 BMI result Body Mass Index 36.2 Assessment & Plan Assessment & Plan (1) Tubular adenoma of colon: Code(s): D12.6 - Benign neoplasm of colon, unspecified Category: Medical (2) Diverticulosis: Code(s): K57.90 - Diverticulosis of intestine, part unspecified, without perforation or abscess without bleeding Category: Medical (3) GERD (gastroesophageal reflux disease): Code(s): K21.9 - Gastro-esophageal reflux disease without esophagitis Category: Medical Qualifiers: Esophagitis presence: with esophagitis Esophagitis bleeding: without hemorrhage Qualified Code(s): K21.00 - Gastro-esophageal reflux disease with esophagitis, without bleeding Plan Continue Nexium daily. Avoid dietary triggers and late night snacking. Staying upright for minimum 3 hours after meals discussed with patient. Patient is aware that she will receive a phone call from surgical schedulers about the time and date when she will be going for the procedure. She will call our office if she will have any GI concerning symptoms. She is agreeable to this plan and verbalizes understanding of instructions. She was given the opportunity to ask questions and all questions answered. Thank you for allowing me to participate in her care Medications: Discontinued pantoprazole take one tablet half an hour before breakfast Discontinued Reason: Doctor's Order 40 mg PO DAILY 30 tabs 2RF K21.9 - Gastro-esophageal reflux disease without esophagitis Coding Level of Care Code Est Pt Level 3 (13315) Diagnoses Tubular adenoma of colon D12.6 Diverticulosis K57.90 Gastroesophageal reflux disease with esophagitis without hemorrhage K21.00 Esophagitis presence: with esophagitis Esophagitis bleeding: without hemorrhage Time Spent (min) 30 Comment 20 minutes spent with patient and additional 10 minutes spent reviewing her records the
[2024-08-11 10:48] VITALS: BP 144/64; PULSE 64; O2SAT 97; BMI 36.2
== END 2024-08-11 11:15 | disposition home or self-care (01) ==
PROVIDERS: PCP Family Medicine; Visit Provider Nurse Practitioner Family
DX: D12.6 Benign neoplasm of colon, unspecified (principal); K57.90 Diverticulosis of intestine, part unspecified, without perforation or abscess without bleeding; K21.00 Gastro-esophageal reflux disease with esophagitis, without bleeding
CPT/HCPCS: 99213

== ENCOUNTER → 2024-08-11 10:45 | Outpatient (BNVA) | payer OTHER, SELFPAY | PROVIDERS: PCP Family Medicine; Visit Provider Nurse Practitioner Family | DX: D12.6 Benign neoplasm of colon, unspecified (principal); K57.90 Diverticulosis of intestine, part unspecified, without perforation or abscess without bleeding; K21.00 Gastro-esophageal reflux disease with esophagitis, without bleeding | CPT/HCPCS: 99212 ==

== ENCOUNTER 2025-02-17 06:38 | Day surgery (SDC) | payer OTHER, SELFPAY ==
[2025-02-15 14:36] VITALS: BMI 36.2
--- NOTE | 2025-02-16 09:39 | P.CONAN_ITS ---
Documented by User: Lily Karimi NP 02/16/25 09:40 HPI - Anesthesia Eval Consult details Narrative: 69yo F for Colonoscopy PMFSH Active Problems Active Problems: All Active Problems Breast CA (Chronic) GERD (gastroesophageal reflux disease) (Acute) Diverticulosis (Acute) Tubular adenoma of colon (Acute) Morbid obesity (Acute) Gallstones (Acute) Past Medical History Medical History GERD (gastroesophageal reflux disease) Diverticulosis Tubular adenoma of colon Morbid obesity Gallstones Sebaceous cyst Rotator cuff dysfunction Depression Osteoarthritis of both hands Internal hemorrhoids Diverticulitis HTN (hypertension) Family History Family History Mother Breast cancer Sister Breast cancer Family history of problems with anesthesia: No Surgical History Surgical History History of esophagogastroduodenoscopy (EGD) (07/28/24) Hx of colonoscopy H/O: hysterectomy History of Problems with Anesthesia: No Social History Social History Household Members: Significant Other Housing: Apartment Are you a primary account executive healthcare to a significant other at home: No Do you presently have visiting nurse or other home services: No Alcohol intake: never Patient Tobacco Use Status: Former Tobacco user Tobacco use type: Cigarette Have you been hit, kicked, punched, or otherwise hurt by someone within the past year? If so, by whom?: No Are you DNR?: No Advance Directives: No Advance Directives Information Provided: Yes Poor oral hygiene: Yes service: No Current occupational status: disabled Meds Allergies Allergy/AdvReac Type Severity Reaction Status Date / Time morphine [MORPHINE] AdvReac Mild NAUSEA & Verified 02/17/25 06:54 VOMITING Home Medications ?Medication ?Instructions ?Recorded ?Confirmed ?Last Taken ?Type ascorbic acid (vitamin C) 25 mg 10 mg PO DAILY 01/30/22 02/17/25 Unknown History tablet lisinopril 30 mg tablet 30 mg PO DAILY 02/17/23 02/17/25 02/17/25 History atorvastatin 20 mg tablet 20 mg PO DAILY 03/16/24 02/17/25 Unknown History hydrochlorothiazide 12.5 mg tablet 12.5 mg PO DAILY 03/16/24 02/17/25 02/17/25 History cholecalciferol (vitamin D3) 50 50 mcg PO DAILY 08/11/24 02/17/25 Unknown History mcg (2,000 unit) capsule (Vitamin D3) diclofenac sodium 1 % topical gel 1 ea topical QID 08/11/24 02/17/25 Unknown History esomeprazole magnesium 20 mg 20 mg PO DAILY 08/11/24 02/17/25 Unknown History capsule,delayed release Exam Height,Weight and Vital Signs: Height 5 ft 2 in Weight 89.783 kg Assessment and Plan Assessment Anesthesia Assessment: Chart Reviewed Final Anesthetic Review Family History of Problems with Anesthesia: No History of Problems with Anesthesia: No Documented by User: Mairna Blanton MD 02/17/25 07:18 [facility] Past Medical History Medical History GERD (gastroesophageal reflux disease) Diverticulosis Tubular adenoma of colon Morbid obesity Gallstones Sebaceous cyst Rotator cuff dysfunction Depression Osteoarthritis of both hands Internal hemorrhoids Diverticulitis HTN (hypertension) Family History Family History Mother Breast cancer Sister Breast cancer Surgical History Surgical History History of esophagogastroduodenoscopy (EGD) (07/28/24) Hx of colonoscopy H/O: hysterectomy Social History Social History Household Members: Significant Other Housing: Apartment Are you a primary account executive healthcare to a significant other at home: No Do you presently have visiting nurse or other home services: No Alcohol intake: never Patient Tobacco Use Status: Former Tobacco user Tobacco use type: Cigarette Have you been hit, kicked, punched, or otherwise hurt by someone within the past year? If so, by whom?: No Are you DNR?: No Advance Directives: No Advance Directives Information Provided: Yes Poor oral hygiene: Yes service: No Current occupational status: disabled Meds Allergies Allergy/AdvReac Type Severity Reaction Status Date / Time morphine [MORPHINE] AdvReac Mild NAUSEA & Verified 02/17/25 06:54 VOMITING Home Medications ?Medication ?Instructions ?Recorded ?Confirmed ?Last Taken ?Type ascorbic acid (vitamin C) 25 mg 10 mg PO DAILY 01/30/22 02/17/25 Unknown History tablet lisinopril 30 mg tablet 30 mg PO DAILY 02/17/23 02/17/25 02/17/25 History atorvastatin 20 mg tablet 20 mg PO DAILY 03/16/24 02/17/25 Unknown History hydrochlorothiazide 12.5 mg tablet 12.5 mg PO DAILY 03/16/24 02/17/25 02/17/25 History cholecalciferol (vitamin D3) 50 50 mcg PO DAILY 08/11/24 02/17/25 Unknown History mcg (2,000 unit) capsule (Vitamin D3) diclofenac sodium 1 % topical gel 1 ea topical QID 08/11/24 02/17/25 Unknown History esomeprazole magnesium 20 mg 20 mg PO DAILY 08/11/24 02/17/25 Unknown History capsule,delayed release Exam Airway Mallampati Class: II (edentulous) TM Dist: >3cm Neck ROM: Full Denture: Upper and Lower Loose/Missing/Broken Teeth: Yes, Upper and Lower Heart: RRR Lungs: CTA Assessment and Plan Assessment Anesthesia Assessment: Anesthesia Plan Discussed Final Anesthetic Review NPO: Yes ASA Class: III Final Preanesthetic Review: Meds/Allgs Chart Reviewed, Consent Obtained/Reviewed and Anes Risks/Benef Reviewed Patient Risk: Intermediate Procedure Risk: Low Anesthetic Plan Anesthetic Plan: MAC: Disposition: Standard PACU
[2025-02-17 06:52] VITALS: BMI 35.8
[2025-02-17 07:16] VITALS: BP 141/75; PULSE 70; RESP 18; TEMP 37.3; O2SAT 98
[2025-02-17] MEDS: Lactated Ringers 1,000 ML 100 ML IVCONT (07:19)
--- NOTE | 2025-02-17 07:37 | MHC.SHP ---
Pre-Procedural Eval Section A - 24 Hr Update-Section A only Date of Service: 02/17/25 Section B - Complete if H&P > 30 days Chief Complaint: Polyp of colon Relevant Family History (Specify if Yes): No Relevant Social History: None Present Medications: see Short Stay Collaborative assessment Medical History: Significant History (GERD (gastroesophageal reflux disease) Diverticulosis Tubular adenoma of colon Morbid obesity Gallstones Sebaceous cyst Rotator cuff dysfunction Depression Osteoarthritis of both hands Internal hemorrhoids Diverticulitis HTN (hypertension)) History of Previous Operations: Relevant previous surgery/procedure and date(s) (History of esophagogastroduodenoscopy (EGD) (07/28/24) Hx of colonoscopy H/O: hysterectomy) Allergies: Allergies Allergy/AdvReac Type Severity Reaction Status Date / Time morphine [MORPHINE] AdvReac Mild NAUSEA & Verified 02/17/25 06:54 VOMITING Review of Systems Sugical H&P ROS: Negative: Constitution, Cardiovascular, Respiratory, Neurological, Psychiatric, Hem-Onc, Allergic/Immunologic, Gastrointestinal, Genitourinary, Musculoskeletal, Integumentary, Endocrine and Eyes/Ears/Nose/Throat Exam Surgical H&P Exam: Normal: HEENT, Normal: Heart, Normal: Lungs, Normal: Extremities, Normal: Abdomen, Normal: Skin and Normal: Neurological Plan Diagnosis/Plan: Unchanged I have reviewed the history and physical and performed a pertinent physical examination on my patient. No changes have occurred unless specified. Time Spent With Patient Time: Total time managing care of this patient today ____ minutes.
--- NOTE | 2025-02-17 08:10 | P.OPN-COLO_ITS ---
Colonoscopy Operative Note Operative Note Date of Service: 02/17/25 Narrative: Operative Information Procedure Description: Colonoscopy Indication: screening, hx of colon polyps Anesthesia: MAC COLONOSCOPY Instrument: Olympus variable stiffness pediatric scope 190L Colonoscopy Monitoring: Vital signs and clinical assessment, continuous EKG monitoring, Pulse oximetry, Carbon Dioxide monitoring and blood pressure monitoring were done throughout the procedure. Colon withdrawal time was 20 minutes. Procedure: The patient was placed in the left lateral decubitis position and pre-procedure medications were administered. After a digital rectal examination of the ano-rectum, the video colonoscope was inserted into the rectum and advanced through the colon to the cecum/TI. The colonoscope was slowly withdrawn in a retrograde panoramic fashion and the colon mucosa was carefully examined including a retroflexed view of the rectum. Findings and interventions are described below. Procedure Difficulty: easy Findings: Terminal Ileum-normal Cecum:normal Ascending Colon: moderate diverticulosis, Transverse Colon -normal Descending Colon: prior prominent fold noted. with distal attachment pushing the fold it appeared to be a flat granular polyp about 8-10 mm. It was lifted with cold snare and then the edges removed with cold forceps. The edges and base were ablated with APC and one clip applied for hemostasis. about 1 cm distal to the lesion shy ink tattoo was placed. Sigmoid Colon: severe diverticulosis, Rectum: Retroflexion with small internal hemorrhoids, grade I, Anorectum - normal Colon preparation: [place] Bowel Preparation Scale Right colon; 2 Transverse colon: 2 Left colon; 2 (0 = Unprepared colon segment with mucosa not seen due to solid stool that cannot be cleared. 1 = Portion of mucosa of the colon segment seen, but other areas of the colon segment not well seen due to staining, residual stool and/or opaque liquid. 2 = Minor amount of residual staining, small fragments of stool and/or opaque liquid, but mucosa of colon segment seen well. 3 = Entire mucosa of colon segment seen well with no residual staining, small fragments of stool or opaque liquid) Impression and Post Procedure Diagnosis: diverticulosis colon polyp internal hemorrhoids Plan: High fiber diet leaflet Avoid straining at stool, epsom salts and sitz bath, anusol supps or cream Repeat Colonoscopy in 1-2 years or earlier if clinically indicated Above findings were reviewed with the patient and relevant handouts were provided if indicated.
[2025-02-17 08:15] VITALS: BP 91/43; PULSE 68; RESP 18; TEMP 37; O2SAT 98
[2025-02-17 08:30] VITALS: BP 103/47; PULSE 60; RESP 17; TEMP 37; O2SAT 95
== END 2025-02-17 09:05 | disposition home or self-care (01) ==
PROVIDERS: PCP Family Medicine; Visit Provider Internal Medicine Gastroenterology
PROC: 0DJD8ZZ Inspection of Lower Intestinal Tract, Via Natural or Artificial Opening Endoscopic (ICD-10-PCS; CPT 45378; principal; 2025-02-17 08:30)
DX: D12.4 Benign neoplasm of descending colon (principal); K57.30 Diverticulosis of large intestine without perforation or abscess without bleeding; K64.0 First degree hemorrhoids; Z86.0101 Personal history of adenomatous and serrated colon polyps; I10 Essential (primary) hypertension; K21.00 Gastro-esophageal reflux disease with esophagitis, without bleeding; Z85.3 Personal history of malignant neoplasm of breast; Z79.899 Other long term (current) drug therapy; Z79.02 Long term (current) use of antithrombotics/antiplatelets; Z87.891 Personal history of nicotine dependence
CPT/HCPCS: 45388; 45381; 45380; 45385; 88305; C1889; J2003; J2704

== ENCOUNTER → 2025-02-17 06:38 | Outpatient (BNV) | payer OTHER, SELFPAY | PROVIDERS: PCP Family Medicine; Visit Provider Internal Medicine Gastroenterology | DX: Z12.11 Encounter for screening for malignant neoplasm of colon (principal); Z86.0101 Personal history of adenomatous and serrated colon polyps; D12.4 Benign neoplasm of descending colon; K57.90 Diverticulosis of intestine, part unspecified, without perforation or abscess without bleeding | CPT/HCPCS: 45381; 45385 ==

== ENCOUNTER 2025-02-23 14:08 | Outpatient (REF) | payer OTHER, SELFPAY ==
--- OUTSIDE RECORDS SUMMARY | 2025-02-23 15:21 | XMS_ITS | Encounter Summary ---
Author Organization [employer] Address [address] [facility] 7[address] [place] [address] Care Team Providers Care Drafter (Cad) Electrical Name Role Phone Margo Daniel DO Primary Care Provider + [phone] Reason for Visit * Reason Comments Med Refill Encounter Details Date Type Department Care Team ([facility] st Contact Info) Description 02/01/2025 Refill [facility] [address] [place] [address] Linda Ozuna FNP Social History Tobacco Use Types Packs/Day Years Used Date Smoking Tobacco: Former Cigarettes Smokeless Tobacco: Never Alcohol Use Standard Drinks/Week Comments Never 0 (1 standard drink = 0.6 oz pur e alcohol) Depression Answer Date Recorded Patient Health Questionnaire-9 Score 6 03/04/2024 Patient Health Questionnaire-9 Score 6 03/04/2024 Last PHQ-9: Questionnaire Data Not on file 0 03/04/2024 Housing Stability Answer Date Recorded What is your housing situation today? I have chelsy cotter 07/09/[address] you li ve. Do you have problems with any of the following? None of the above 07/09/2024 Food Insecurity Answer Date Recorded Within the past 12 months, y ou worried that your food would run out before you got money to buy more: Never True 07/09/2024 Within the past 12 months,th e food you bought just didn't last and you didn't have enough money to get more: Never True Transportation Answer Date Recorded In the past 12 months, has l ack of transportation kept you from medical appts, meetings, work or from getting things needed for daily living? No 07/09/2024 Utilities Answer Date Recorded In the past 12 months, has t he electric, gas, oil or water company threatened to shut off services in your home? No 07/09/2024 Depression Answer Date Recorded Patient Health Questionnaire-2 Score 2 03/04/2024 Internet Access Answer Date Recorded Internet Access Q1 Yes 07/09/2024 Internet Access Q2 Not on file 07/09/2024 Comments Unknown Sex and Gender Information Value Date Recorded Sex Assigned at Female 08/19/2022 10:14 AM EDT Legal Sex Female 10:14 AM EDT Gender Identity Female 08/19/2022 10:14 AM EDT Sexual Orientation Choose not to disclose 2021 10:14 AM EDT documented as of this encounter Plan of Treatment Not on file documented as of this encounter Visit Diagnoses Not on filedocumented in this encounter Additional Health Concerns Assessment Noted Time PHQ-9 Depression Total Score: 6 03/04/20 24 10:36 AM EDT documented as of this encounter Care Teams Drafter (Cad) Electrical Relationship Specialty Start Date End Date Margo Daniel DO [address] [place] [address] PCP - General Family Medicine 04/30/18 documented as of this encounter
--- OUTSIDE RECORDS SUMMARY | 2025-02-23 15:21 | XMS_ITS | Encounter Summary ---
Author Organization [employer] Address [address] [facility] [address] [place] [address] Care Team Providers Care Filter Press Pumper Name Role Phone Margo Daniel DO Primary Care Provider + [phone] Reason for Visit * Reason Onset Date Comments Nurse Triage 12/31/2023 Encounter Details Date Type Department Care Team (Late st Contact Info) Description 12/31/2023 Telephone [facility] [address] [place] [address] Margo Daniel DO [address] [place], [place] [phone] Nurse Triage Social History Tobacco Use Types Packs/Day Years Used Date Smoking Tobacco: Former Cigarettes Smokeless Tobacco: Never Alcohol Use Standard Drinks/Week Comments Never 0 (1 standard drink = 0.6 oz pur e alcohol) PHQ-2 Answer Date Recorded Patient Health Questionnaire-2 Score 0 12/02/2022 Housing Stability Answer Date Recorded What is your housing situation today? I have chelsy cotter 08/13/[address] you li ve. Do you have problems with any of the following? None of the above 08/13/2023 Food Insecurity Answer Date Recorded Within the past 12 months, y ou worried that your food would run out before you got money to buy more: Never True 08/13/2023 Within the past 12 months,th e food you bought just didn't last and you didn't have enough money to get more: Never True Transportation Answer Date Recorded In the past 12 months, has l ack of transportation kept you from medical appts, meetings, work or from getting things needed for daily living? No 08/13/2023 Utilities Answer Date Recorded In the past 12 months, has t he electric, gas, oil or water company threatened to shut off services in your home? 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 Pt was seen in ED 12/17/23, (report is on chart) with dx of biliary colic with stones . Pt reports increased stooling lately. Today BM x4 , loose, with cramping pain which comes and goes after BM. Pt reports taking minor seltzer which seems to help. Neg for fever, nausea, vomiting. No blood in the stool. Appetite/ eating as usual. Advised Pt to come to [facility] for provider to see Pt and Pt agrees with disposition. Pt is given hours open till 8pm. Insurance is verified as active. Protocol Used: Abdominal Pain - Female (Adult) Protocol-Based Disposition: See in Office or Video Visit Today Video visit not offered Positive Triage Questions: * Moderate pain (e.g., interferes with normal activities that comes and goes (cramps) lasts > 24hours (Exception: Pain with Vomiting or Diarrhea - see that Protocol.) * Patient wants to be seen * All higher-acuity triage questions were negative Care Advice Discussed: * Reassurance and Education - Stomach Pain * Rest * Drink Clear Fluids * Pass a Stool * Reasons To Call Back - Severe pain lasts over 1 hour - Constant pain lasts over 2 hours - Intermittent pains (e.g., comes and goes, cramps) lasts over 48 hours - You are - You become worse * Telephone Encounter - Greta Florentino - 12/31/2023 3:25 PM EDT Symptoms: Dizziness, Abdominal Pain - Female - Not , Diarrhea Outcome: Talk to a nurse or provider within 15 minutes Reason: Trouble walking The caller accepted this outcome Please contact pt at [phone] (Nepalese) documented in this encounter Plan of Treatment Not on file documented as of this encounter Visit Diagnoses Not on filedocumented in this encounter Care Teams Filter Press Pumper Relationship Specialty Start Date End Date Margo Daniel DO [address] [place] [id number] PCP - General Family Medicine 04/30/18 documented as of this encounter
--- OUTSIDE RECORDS SUMMARY | 2025-02-23 15:21 | XMS_ITS | Encounter Summary ---
Author Organization [employer] Address [address] [facility] [address] [place] [address] Care Team Providers Care Chiller Tender Name Role Phone Margo Daniel DO Primary Care Provider [phone] Encounter Details Date Type Department Care Team ([facility] st Contact Info) Description 12/03/2022 Orders Only [facility] [address] [place] [address] Margo Daniel DO [address] [place], [place] [phone] Depressive disorder (Primary Dx) Social History Tobacco Use Types Packs/Day Years Used Date Smoking Tobacco: Former Cigarettes Alcohol Use Standard Drinks/Week Comments Never 0 (1 standard drink = 0.6 oz pur e alcohol) PHQ-2 Answer Date Recorded Patient Health Questionnaire-2 Score 0 12/02/2022 Depression Answer Date Recorded Patient Health Questionnaire-2 Score 0 12/02/2022 Comments Unknown Sex and Gender Information Value Date Recorded Sex Assigned at Female 08/19/2022 10:14 AM EDT Legal Sex Female 10:14 AM EDT Gender Identity Female 08/19/2022 10:14 AM EDT Sexual Orientation Choose not to disclose 2021 10:14 AM EDT COVID-19 Exposure Response Date Recorded In the last 10 days, have yo u been in contact with someone who was confirmed or suspected to have Coronavirus/COVID-19? No / Unsure 12/02/2022 10:03 AM EST documented as of this encounter Plan of Treatment Not on file documented as of this encounter Procedures Procedure Name Priority Date/Time Associated Diagnosis Comments XR HAND 3+ VIEWS RIGHT Routine 12/25/2022 2:17 PM EST XR HAND 3+ VIEWS LEFT Routine 12/25/2022 2:17 PM EST documented in this encounter Results * XR Hand 3+ Views Right (12/25/2022 2:17 PM EST) Anatomical Region Laterality Modality Upper Extremities, Hand Right Radiogra phic Imaging 12/25/2022 2:17 PM EST Narrative 12/30/2022 7:41 PM EDT ? [facility] ?[address] ?[place] [address] ?XRay Report ? Signed ? Patient: Ambrocio,Arlene I ?MR#: [id number] ?? 2 ? : 1955 ?Acct:[id number] ? Age/Sex: 67 / F ?ADM Date: 12/25/22 ? Loc: HO.XRAY ? Attending Dr: Margo Daniel DO ? Ordering Physician: Margo Daniel DO ?? Date of Service: 12/25/22 ?? Procedure(s): XR hand RT min 3V ?? Accession Number(s): [id number] ? cc: Margo Daniel DO ? EXAMINATION: ?? XR HAND, RIGHT ? CLINICAL INFORMATION: ?? Pain. ? COMPARISON: ?? Radiographs dated 05/13/2019. ? TECHNIQUE: ?? PA, lateral, and oblique views of the right hand. ? FINDINGS: ?? Bony alignment and mineralization are normal. There is an ulnar minus ?? variance. There is marked osteoarthritic change of the interphalangeal ?? joint of the thumb. There is mild osteoarthritic change of the third ?? and fifth distal interphalangeal joints and of the second and third ?? proximal interphalangeal joints. There is very mild osteoarthritic ?? change of the third metacarpophalangeal joint. No fracture or ?? dislocation is seen. There is no abnormal bone erosion. The proximal ?? and distal carpal rows are intact. No focal soft tissue swelling, gas ?? or foreign body is seen. ? XR/XR hand RT min 3V ?? IMPRESSION: ?? There are multi-focal osteoarthritic changes of the left hand, as ?? detailed. No fracture or dislocation is seen. There is no abnormal bony ?? erosive change. ? EXAMINATION: ?? XR HAND, LEFT ? CLINICAL INFORMATION: ?? Pain. ? COMPARISON: ?? Radiographs dated 05/13/2019. ? TECHNIQUE: ?? PA, lateral, and oblique views of the left hand. ? FINDINGS: ?? Bony alignment and mineralization are normal. There is an ulnar minus ?? variance. There is moderate osteoarthritic change of the ?? interphalangeal joint of the thumb. There is subluxation of the distal ?? interphalangeal joint. There is very mild osteoarthritic change of the ?? second through fifth distal interphalangeal joints. There is moderate ?? osteoarthritic change of the second proximal interphalangeal joint. ?? There is minimal osteoarthritic change of the third metacarpophalangeal ?? joint. No fracture or dislocation is seen. There is no abnormal bone ?? erosion. The proximal and distal carpal rows are intact. No focal soft ?? tissue swelling, gas or foreign body is seen. ? IMPRESSION: ?? There are multi-focal osteoarthritic changes of the left hand, as ?? detailed. No fracture or dislocation is seen. There is no abnormal bone ?? erosion. ? Dictated By: ?Melecio Persaud MD ? Signed By: ?<Electronically signed by Melecio Persaud MD in OV> ? 12/30/22 1938 ? DD/ 1417 ? TD/TT: ? Hydraulic Rubbish Compactor Mechanic: VALDEZ ? Procedure Note [place], Image - 12/30/[address] [address] XRay Report Signed Patient: Arlene Albrecht [facility]#: [id number] 2 : 7Acct:[id number] Age/Sex: 67 / FADM Date: 12/25/22 Loc: [facility] Attending Dr: Margo Daniel DO Ordering Physician: Margo Daniel DO Date of Service: 12/25/22 Procedure(s): XR hand RT min 3V Accession Number(s): [id number] cc: Margo Daniel DO EXAMINATION: XR HAND, RIGHT CLINICAL INFORMATION: Pain. COMPARISON: Radiographs dated 05/13/2019. TECHNIQUE: PA, lateral, and oblique views of the right hand. FINDINGS: Bony alignment and mineralization are normal. There is an ulnar minus variance. There is marked osteoarthritic change of the interphalangeal joint of the thumb. There is mild osteoarthritic change of the third and fifth distal interphalangeal joints and of the second and third proximal interphalangeal joints. There is very mild osteoarthritic change of the third metacarpophalangeal joint. No fracture or dislocation is seen. There is no abnormal bone erosion. The proximal and distal carpal rows are intact. No focal soft tissue swelling, gas or foreign body is seen. XR/XR hand RT min 3V IMPRESSION: There are multi-focal osteoarthritic changes of the left hand, as detailed. No fracture or dislocation is seen. There is no abnormal bony erosive change. EXAMINATION: XR HAND, LEFT CLINICAL INFORMATION: Pain. COMPARISON: Radiographs dated 05/13/2019. TECHNIQUE: PA, lateral, and oblique views of the left hand. FINDINGS: Bony alignment and mineralization are normal. There is an ulnar minus variance. There is moderate osteoarthritic change of the interphalangeal joint of the thumb. There is subluxation of the distal interphalangeal joint. There is very mild osteoarthritic change of the second through fifth distal interphalangeal joints. There is moderate osteoarthritic change of the second proximal interphalangeal joint. There is minimal osteoarthritic change of the third metacarpophalangeal joint. No fracture or dislocation is seen. There is no abnormal bone erosion. The proximal and distal carpal rows are intact. No focal soft tissue swelling, gas or foreign body is seen. IMPRESSION: There are multi-focal osteoarthritic changes of the left hand, as detailed. No fracture or dislocation is seen. There is no abnormal bone erosion. Dictated By: Melecio Persaud MD Signed By: <Electronically signed by Melecio Persaud MD in OV> 12/30/221937 DD/ 1417 TD/TT: Hydraulic Rubbish Compactor Mechanic: VALDEZ us [facility] External Provider IMG XR PROCEDURES Edited Result - Final * XR Hand 3+ Views Left (12/25/2022 2:17 PM EST) Anatomical Region Laterality Modality Upper Extremities, Hand Left Radiogra phic Imaging 12/25/2022 2:17 PM EST Narrative 12/30/2022 7:41 PM EDT ? [facility] ?[address] ?[place], [place] [address] ?XRay Report ? Signed ? Patient: Arlene Albrecht I ?MR#: [id number] ?? 2 ? : 1955 ?Acct:[id number] ? Age/Sex: 67 / F ?ADM Date: 12/25/22 ? Loc: HO.XRAY ? Attending Dr: Margo Daniel DO ? Ordering Physician: Margo Daniel DO ?? Date of Service: 12/25/22 ?? Procedure(s): XR hand LT min 3V ?? Accession Number(s): [id number] ? cc: Margo Daniel DO ? EXAMINATION: ?? XR HAND, RIGHT ? CLINICAL INFORMATION: ?? Pain. ? COMPARISON: ?? Radiographs dated 05/13/2019. ? TECHNIQUE: ?? PA, lateral, and oblique views of the right hand. ? FINDINGS: ?? Bony alignment and mineralization are normal. There is an ulnar minus ?? variance. There is marked osteoarthritic change of the interphalangeal ?? joint of the thumb. There is mild osteoarthritic change of the third ?? and fifth distal interphalangeal joints and of the second and third ?? proximal interphalangeal joints. There is very mild osteoarthritic ?? change of the third metacarpophalangeal joint. No fracture or ?? dislocation is seen. There is no abnormal bone erosion. The proximal ?? and distal carpal rows are intact. No focal soft tissue swelling, gas ?? or foreign body is seen. ? XR/XR hand LT min 3V ?? IMPRESSION: ?? There are multi-focal osteoarthritic changes of the left hand, as ?? detailed. No fracture or dislocation is seen. There is no abnormal bony ?? erosive change. ? EXAMINATION: ?? XR HAND, LEFT ? CLINICAL INFORMATION: ?? Pain. ? COMPARISON: ?? Radiographs dated 05/13/2019. ? TECHNIQUE: ?? PA, lateral, and oblique views of the left hand. ? FINDINGS: ?? Bony alignment and mineralization are normal. There is an ulnar minus ?? variance. There is moderate osteoarthritic change of the ?? interphalangeal joint of the thumb. There is subluxation of the distal ?? interphalangeal joint. There is very mild osteoarthritic change of the ?? second through fifth distal interphalangeal joints. There is moderate ?? osteoarthritic change of the second proximal interphalangeal joint. ?? There is minimal osteoarthritic change of the third metacarpophalangeal ?? joint. No fracture or dislocation is seen. There is no abnormal bone ?? erosion. The proximal and distal carpal rows are intact. No focal soft ?? tissue swelling, gas or foreign body is seen. ? IMPRESSION: ?? There are multi-focal osteoarthritic changes of the left hand, as ?? detailed. No fracture or dislocation is seen. There is no abnormal bone ?? erosion. ? Dictated By: ?Melecio Persaud MD ? Signed By: ?<Electronically signed by Melecio Persaud MD in OV> ? 12/30/22 1938 ? DD/ 1417 ? TD/TT: ? Hydraulic Rubbish Compactor Mechanic: VALDEZ ? Procedure Note Nicole Blake - 12/30/[address] [address] XRay Report Signed Patient: Arlene Albrecht IMR#: [id number] 2 : 1955cct:[id number] Age/Sex: 67 / FADM Date: 12/25/22 Loc: [facility] Attending Dr: Margo Daniel DO Ordering Physician: Margo Daniel DO Date of Service: 12/25/22 Procedure(s): XR hand LT min 3V Accession Number(s): [id number] cc: Margo Daniel DO EXAMINATION: XR HAND, RIGHT CLINICAL INFORMATION: Pain. COMPARISON: Radiographs dated 05/13/2019. TECHNIQUE: PA, lateral, and oblique views of the right hand. FINDINGS: Bony alignment and mineralization are normal. There is an ulnar minus variance. There is marked osteoarthritic change of the interphalangeal joint of the thumb. There is mild osteoarthritic change of the third and fifth distal interphalangeal joints and of the second and third proximal interphalangeal joints. There is very mild osteoarthritic change of the third metacarpophalangeal joint. No fracture or dislocation is seen. There is no abnormal bone erosion. The proximal and distal carpal rows are intact. No focal soft tissue swelling, gas or foreign body is seen. XR/XR hand LT min 3V IMPRESSION: There are multi-focal osteoarthritic changes of the left hand, as detailed. No fracture or dislocation is seen. There is no abnormal bony erosive change. EXAMINATION: XR HAND, LEFT CLINICAL INFORMATION: Pain. COMPARISON: Radiographs dated 05/13/2019. TECHNIQUE: PA, lateral, and oblique views of the left hand. FINDINGS: Bony alignment and mineralization are normal. There is an ulnar minus variance. There is moderate osteoarthritic change of the interphalangeal joint of the thumb. There is subluxation of the distal interphalangeal joint. There is very mild osteoarthritic change of the second through fifth distal interphalangeal joints. There is moderate osteoarthritic change of the second proximal interphalangeal joint. There is minimal osteoarthritic change of the third metacarpophalangeal joint. No fracture or dislocation is seen. There is no abnormal bone erosion. The proximal and distal carpal rows are intact. No focal soft tissue swelling, gas or foreign body is seen. IMPRESSION: There are multi-focal osteoarthritic changes of the left hand, as detailed. No fracture or dislocation is seen. There is no abnormal bone erosion. Dictated By: Melecio Persaud MD Signed By: <Electronically signed by Melecio Persaud MD in OV> 12/30/22 1938 DD/ 1417 TD/TT: Hydraulic Rubbish Compactor Mechanic: VALDEZ [facility] External Provider IMG XR PROCEDURES Edited Result - Final documented in this encounter Visit Diagnoses Diagnosis Depressive disorder- Primary Depressive disorder, not elsewhere classified documented in this encounter Care Teams Chiller Tender Relationship Specialty Start Date End Date Margo Daniel DO [address] [place] [address] PCP - General Family Medicine 04/30/18 documented as of this encounter
--- OUTSIDE RECORDS SUMMARY | 2025-02-23 15:21 | XMS_ITS | Clinical Summary ---
Author Organization [employer] Address [address] [facility] [address] [place] [address] Care Team Providers Care Associate Professor Of Education Name Role Phone Fredy Margo BRITT Primary Care Provider + [phone] Allergies No known active allergies Medications * This document contains information received from the source organization and may not represent a complete record from that organization. Calcium Carb-Cholecalcife rol 600-10 MG-MCG tablet Take 1 tablet by mouth every 12 (twelve) hours. Active acetaminophen (Tylenol 8 Hour) 650 MG ER tablet Take 650 mg by mouth every 8 (eight) hours if needed. 2 Active cyclobenzaprine (Flexeril) 10 MG tablet Take 10 mg by mouth if needed in the morning, at noon, and at bedtime. 2 Active docusate sodium (Colace) 100 MG capsule Take 100 mg by mouth 2 times daily. 2 Active fluticasone (Flonase) 50 MCG/ACT nasal spray Administer 2 sprays into each nostril in the morning. 2 Active loratadine (Claritin) 10 MG tablet Take 10 mg by mouth in the morning. 2 Active polyethylene glycol, PEG, 3350 (Glycolax) 17 GM/SCOOP powder Take 17 g by mouth if needed each day. 2 Active Ventolin HFA 108 (90 Base) MCG/ACT inhaler INHALE 2 PUFFS BY MOUTH EVERY 4 TO 6 HOURS NEEDED SHORTNESS OF BREATH OR FOR WHEEZING 3 Active Blood Pressure Monitoring (Omron 3 Series BP Monitor) device USE TO CHECK BLOOD PRESSURE DIRECTED 2 Active hydrOXYzine HCl (Atarax) 25 MG tabletIndications :Depressive disorder Take 0.5 tablets (12.5 mg) by mouth every 6 (six) hours if needed for anxiety. 30 tablet 3 3 Active Diclofenac Sodium 1 % gel Apply 2 g topically if needed in the morning, at noon, in the evening, and at bedtime (pain). 150 g 3 3 Active baclofen (Lioresal) 10 MG tablet TAKE 1 TABLET BY MOUTH THREE TIMES DAILY IN THE MORNING, AT NOON, AND AT BEDTIME NEEDED FOR MUSCLE SPASMS 60 tablet 1 4 Active amitriptyline (Elavil) 10 MG tablet Take 1 tablet (10 mg) by mouth at bedtime. 30 tablet 5 4 03/04/20 25 Active Calcium Polycarbophil (fiber) 625 MG tablet Take 1 tablet (625 mg) by mouth 2 times daily. 60 tablet 11 4 03/04/20 25 Active D3 Super Strength 50 MCG (2000 UT) capsule TAKE 1 CAPSULE BY MOUTH EVERY DAY 90 capsule 3 4 Active cyanocobalamin (Vitamin B-12) 1000 MCG tablet TAKE 1 TABLET BY MOUTH EVERY DAY 90 tablet 3 4 Active famotidine (Pepcid) 20 MG tabletIndications :Dyspepsia Take 1 tablet (20 mg) by mouth at bedtime. 60 tablet 1 4 06/28/20 25 Active esomeprazole (NexIUM) [address] capsule Take 1 capsule (20 mg) by mouth before breakfast and before evening meal. Do not open capsule. 60 capsule 11 4 08/03/20 25 Active hydroCHLOROthiazi de 12.5 MG tablet TAKE 1 TABLET BY MOUTH EVERY MORNING 90 tablet 3 4 Active lisinopril 30 MG tablet TAKE 1 TABLET BY MOUTH EVERY DAY 90 tablet 1 5 Active atorvastatin (Lipitor) 20 MG tablet TAKE 1 TABLET BY MOUTH EVERY MORNING 30 tablet 1 5 Active Active Problems Problem Noted Date Diagnosed Date Essential hypertension 12/02/2022 Hyperlipidemia 12/02/2022 Chronic gastroesophageal reflux disease 02/13/20 23 Chronic constipation 12/02/2022 BMI 35.0-35.9,adult 12/02/2022 Osteoarthritis 12/02/2022 Infiltrating ductal carcinoma of left breast Healthcare maintenance 12/02/2022 Diverticulosis 12/02/2022 Family history of breast cancer 12/02/2022 Chronic back pain 12/02/2022 Osteopenia 12/02/2022 Depressive disorder 12/02/2022 History of hysterectomy for benign disease 12/02 Arthralgia 12/02/2022 Encounters Date Type Department Care Team Description 02/18/2025 Orders Only [facility] [address] [place] [address] Provider, MD Gudelia 02/01/2025 Refill [facility] [address] [place], [place] [phone] Linda Ozuna FNP 12/17/2024 Telephone [facility] MEDICINE [address] [place], [place] [phone] Margo Daniel DO Recall Letter (Recall Letter sent 12/17/24.) 12/03/2024 Refill [facility] [address] [place], [place] [phone] Margo Daniel DO from Last 3 Months Immunizations Name Administration Dates Next Due Influenza injectable quadriv alent preservative free 08/01/2021,07/27/2020 Moderna Covid-19 Vaccine 12+ 11/12/2021,01/24/20 21,12/26/2020 Pneumococcal Conjugate PCV 20 12/02/2022 TD (adult), 2 Lf tetanus tox oid, preservative free, adsorbed 05/27/2008,11/13/1995 Family History Medical History Relation Name Comments Coronary artery disease Father Diabetes Father Hypertension Father Kidney disease Father Breast cancer Mother Coronary artery disease Mother Breast cancer Sister Relation Name Status Comments Father Mother Sister Social History Tobacco Use Types Packs/Day Years Used Date Smoking Tobacco: Former Cigarettes Smokeless Tobacco: Never Tobacco Cessation:Counseling Given: Not Answered Alcohol Use Standard Drinks/Week Comments Never 0 [...] not to disclose 2021 10:14 AM EDT Last Filed Vital Signs Vital Sign Reading Time Taken Comments Blood Pressure 133/64 08/03/2024 11:01 AM EDT Pulse 70 08/03/2024 11:01 AM EDT Temperature 35.9 ??C (96.6 ??F) 08/03/2024 11:01 AM E DT Respiratory Rate 17 08/03/2024 11:01 AM EDT Oxygen Saturation 98% 03/04/2024 10:30 AM EDT Inhaled Oxygen Concentration - - Weight 88.9 kg (196 lb) 08/03/2024 11:01 AM EDT Height 157.5 cm (5' 2 ) 08/03/2024 11:01 AM EDT Body Mass Index 35.85 08/03/2024 11:01 AM EDT Plan of Treatment Health Maintenance Due Date Last Done Comments CT Colonography 1955 FIT DNA/Cologuard 1955 FIT 1955 FOBT 1955 Sigmoidoscopy 1955 Alcohol/Substance Use Screening 1969 Zoster Vaccines (1 of 2) 2007 DTaP/Tdap/Td Vaccines (1 - Tdap) 05/28/2008 05/27/2008, 11/13/1995 COVID-19 Vaccine (4 - season) 2024 11/12/2021, 01/23/2021, 12/26/2020 Influenza Vaccine (#1) 2024 08/01/2021, 2019 Mammogram 01/29/2025 01/30/2024, 12/19, 01/08/2023, Additional history exists Depression Screening 03/04/2025 03/04/2024, 03/04/20 24 SDOH Screening 07/09/2025 07/09/2024 Tobacco Screening 08/03/2025 08/03/2024 Colonoscopy 02/17/2026 02/17/2025 Colorectal Cancer Screening 02/17/2026 Lipid Panel 03/04/2029 03/04/2024, 11/21, 08/03/2021, Additional history exists RSV Patients and Patients Aged 60 years or older (1 - 1-dose 75+ series) 2032 Hepatitis C Screening Completed 07/27/2020 Pneumococcal Vaccine: 50+ Years Completed 12/02/2022 HIB Vaccines Aged Out No longer eligi ble based on patient's age to complete this topic HPV Vaccines Aged Out No longer eligi ble based on patient's age to complete this topic Hepatitis A Vaccines Aged Out No long er eligible based on patient's age to complete this topic Hepatitis B Vaccines Aged Out No long er eligible based on patient's age to complete this topic IPV Vaccines Aged Out No longer eligi ble based on patient's age to complete this topic Meningococcal Vaccine Aged Out No esdras cuong eligible based on patient's age to complete this topic RSV under 20 months Aged Out No longe r eligible based on patient's age to complete this topic Rotavirus Vaccines Aged Out No longer eligible based on patient's age to complete this topic Procedures Procedure Name Priority Date/Time Associated Diagnosis Comments HM COLONOSCOPY Routine 02/17/2025 8:36 PM EDT HEMATOXYLIN AND EOSIN STAIN Routine 02/17/2025 8:00 AM EDT LIPID PANEL, STANDARD Routine 03/04/2024 12:12 PM EDT Essential hypertension BI MAMMOGRAM SCREENING TOMOSYNTHESIS BILATERAL Routine 01/30/2024 2:56 PM EDT ZZZ HISTORICAL HEPATITIS C AB W/REFL TO HCV RNA, QN, PCR Routine 07/27/2020 10:49 AM EDT from Last 3 Months or Most Recently Relevant to Health Maintenance Results * Hm Colonoscopy (02/17/2025 8:36 PM EDT) Colonoscopy Normal Normal Narrative Paulette Yanez - 02/17/2025 8:36 PM EDT Repeat Colonoscopy in 1-2 years or earlier if clinically indicated (see external hospital admission note on 02/17/2025 us Historical Provider HEALTH MAINTENANCE Edited Result - Final * Hematoxylin and Eosin Stain (02/17/2025 8:00 AM EDT) 02/17/2025 8:00 AM EDT 02/17/2025 8:30 AM EDT Narrative [facility] - 02/18/2025 3:56 PM EDT ----- ------- Name: Arlene Albrecht I ?Age/Sex: 69/F ? : 1955 Unit#: [id number] ?? Attend Dr: Alexandra Sparks MD ?Re02/17/25 ?Status: DEP SDC ? Location: HO.SSS ?Disch: ? ----- ------- SPEC : [id number] ? RECD: 02/17/25 ? STATUS: ??SOUT ? REQ NUM: [id number] ? ALVARO: 02/17/25 ? SUBM DR: Alexandra Sparks MD ? ENTERED: ??02/17/25 ?SP TYPE: Surgical ? OTHR DR: Margo Daniel DO ? ORDERED: ??HE Stain/3, Gross Micro L4 ? Diagnosis ?? Colon, descending, polypectomy: ??Tubular adenoma; negative for high-grade dysplasia or ?? carcinoma. ?Clinical History Pre-Op Dx: ??H/O colon polyps Post-Op Dx: Colon polyp, diverticulosis, internal hemorrhoids ?Microscopic Description Microscopic sections reviewed. ? Material Received ?? Descending colon polyp ? Gross Description Received in formalin labeled descending colon polyp? are several elmore and elmore-pink irregular and papular tissue fragments ranging from 0.1-0.4 cm and aggregating 0.9 x 0.8 x 0.25 cm, submitted in toto in a cassette labeled A. CEDS Copies To: ?? Alexandra Sparks MD ?? [facility] ?? [address] ?? [place] [address] ?? [phone] ?? Margo Daniel DO ?? [facility] ?? [address] [facility] ?? [place] [address] ?? [phone] ----- ------- Signed (signature on file) Nikhil Galindo MD 02/18/25 9776 ? ----- ------- ? END OF REPORT ? us Generic External Data Provider LAB BLOOD ORDERAB LES Final Result Performing Organization Address City/State/[facility] de Phone Number [facility] [address] [place] [address] [phone] * Lipid Panel, Standard (03/04/2024 12:12 PM EDT) Triglycerides 120 <150 mg/dL [facility] Comment:Desirable Triglyceri de: less than 150 mg/dLBorderline High Triglyceride 150-199 mg/dLHigh Triglyceride: 200-499 mg/dLVery High Triglyceride: greater than or equal to 5OO mg/dL Cholesterol 126 <200 mg/dL [facility] Comment:Desirable Cholestero l: less than 200 mg/dLBorderline High Cholesterol: 200-239 mg/dLHigh Cholesterol: greater than 239 mg/dL LDL Cholesterol Calculated 57 <100 mg/dL [facility] Comment:Desirable LDL: less than 100 mg/dLNear Optimal/Above Optimal LDL: 110- 129 mg/dLBorderline High LDL: 130-159 mg/dLHigh LDL: 160-189 mg/dLVery High LDL: greater than or equal to 190 mg/dL HDL Cholesterol 45 >40 mg/dL [facility] Comment:Desirable HDL: great er than 40 mg/dL Note: This HDL assay may give artificially low results in patients with liver disease. Blood Venous blood specimen / Unknown 03/04/2024 12:12 PM EDT 03/04/2024 12:58 PM EDT Margo Daniel DO LAB BLOOD ORDERABLES Final R esult Performing Organization Address [facility] Co de Phone Number [facility] [address] [place] [address] [phone] * BI Mammogram Screening Tomosynthesis Bilateral (01/30/2024 2:56 PM EDT) Anatomical Region Laterality Modality Breast Bilateral Mammography 01/30/2024 2:56 PM EDT Narrative 02/26/2024 10:26 PM EDT ? [place] [facility] ? [address] ?[place] [address] ? Mammography Report ? Signed ? Patient: Ambrocio,Arlene I ?MR#: [id number] ?? 2 ? : 1955 ?Acct:[id number] ? Age/Sex: 68 / F ?ADM Date: 01/30/24 ? Loc: HO.MAMMO ? Attending Dr: Margo Daniel DO ? Ordering Physician: Margo Daniel DO ?Results: 1N ?? egative ? Date of Service: 01/30/24 ?Follow Up: 1 Year From Orig ?? inal Mammogram ? Procedure(s): MM tomosynthesis screening BI ?? Accession Number(s): [id number] ? cc: Margo Daniel DO ? EXAMINATION: ?? MM SCREENING DIGITAL BREAST TOMOSYNTHESIS, BILATERAL ? CLINICAL INFORMATION: ? Screening. Asymptomatic. ? COMPARISON: ?? Mammography: This study is compared with prior exams dating back to ?? 2020. ? TECHNIQUE: ?? Digital breast tomosynthesis is performed in both the craniocaudal and ?? mediolateral oblique views along with computer-aided detection (CAD). ?? Synthesized 2D images are generated from the tomosynthesis. ? FINDINGS: ?? There are scattered areas of fibroglandular density (ACR BI-RADS breast ?? composition Category b). ? There are no significant masses, abnormal calcifications, or other ?? abnormalities. ? MM/MM tomosynthesis screening BI ?? IMPRESSION: ?? No mammographic evidence of malignancy. ? ASSESSMENT: ? BI-RADS BI-RADS 1 - Negative ? RECOMMENDATION: ?? Routine annual mammography screening. ? 1 year F/U ? This examination should not preclude the clinical evaluation of a ?? suspicious palpable abnormality. ? This patient's information was entered into a reminder system with a ?? target due date for their next mammogram. ? Dictated By: ?Minda Arenas MD ? Signed By: ?<Electronically signed by Minda Arenas MD in OV> ? 02/26/242221 ? DD/ 1456 ? TD/TT: ? Works Manager: ? Procedure Note Nicole Blake - 02/26/2024 [place] [facility] [address] [place] [address] Mammography Report Signed Patient: Arlene Albrecht IMR#: [id number] 2 : 7Acct:[id number] Age/Sex: 68 / FADM Date: 01/30/24 Loc: HO.MAMMO Attending Dr: Margo Daniel DO Ordering Physician: Margo Danielults: 1N egative Date of Service: 01/30/24Follow Up: 1 Year From Orig inal Mammogram Procedure(s): MM tomosynthesis screening BI Accession Number(s): [id number] cc: Margo Daniel DO EXAMINATION: MM SCREENING DIGITAL BREAST TOMOSYNTHESIS, BILATERAL CLINICAL INFORMATION: Screening. Asymptomatic. COMPARISON: Mammography: This study is compared with prior exams dating back to 2019. TECHNIQUE: Digital breast tomosynthesis is performed in both the craniocaudal and mediolateral oblique views along with computer-aided detection (CAD). Synthesized 2D images are generated from the tomosynthesis. FINDINGS: There are scattered areas of fibroglandular density (ACR BI-RADS breast composition Category b). There are no significant masses, abnormal calcifications, or other abnormalities. MM/MM tomosynthesis screening BI IMPRESSION: No mammographic evidence of malignancy. ASSESSMENT: BI-RADS BI-RADS 1 - Negative RECOMMENDATION: Routine annual mammography screening. 1 year F/U This examination should not preclude the clinical evaluation of a suspicious palpable abnormality. This patient's information was entered into a reminder system with a target due date for their next mammogram. Dictated By: Minda Arenas MD Signed By: <Electronically signed by Minda Arenas MD in OV> 02/26/24 2222 DD/ 1456 TD/TT: Works Manager: Margo Daniel DO IMG BI PROCEDURES Edited Res ult - Final * HEPATITIS C AB W/REFL TO HCV RNA, QN, PCR (07/27/2020 10:49 AM EDT) HEPATITIS C ANTIBODY NON-REACT ALDO NON-REACT ALDO [facility] INDEX 0.01 <1.00 [facility] Comment: ?? HCV antibody was non-reactive. There is no laboratory ?? evidence of HCV infection. ?? In most cases, no further action is required. However, if recent HCV exposure is suspected, a test for HCV RNA (test code 22495) is suggested. ?? For additional information please refer to http://[employer].PlaceSpeak/faq/ENE80i5 (This link is being provided for informational/ educational purposes only.) ?? HEPATITIS C ANTIBODY NON-REACT ALDO NON-REACT ALDO [facility] INDEX 0.01 <1.00 [facility] Comment: ?? HCV antibody was non-reactive. There is no laboratory ?? evidence of HCV infection. ?? In most cases, no further action is required. However, if recent HCV exposure is suspected, a test for HCV RNA (test code 79073) is suggested. ?? For additional information please refer to http://[employer]Place[employer]ak/faq/IDE10z5 (This link is being provided for informational/ educational purposes only.) ?? HEPATITIS C ANTIBODY NON-REACT ALDO NON-REACT ALDO [facility] INDEX 0.01 <1.00 [facility] Comment: ?? HCV antibody was non-reactive. There is no laboratory ?? evidence of HCV infection. ?? In most cases, no further action is required. However, if recent HCV exposure is suspected, a test for HCV RNA (test code 65599) is suggested. ?? For additional information please refer to http://[employer].PlaceSpeak/faq/HJQ16r0 (This link is being provided for informational/ educational purposes only.) ?? HEPATITIS C ANTIBODY NON-REACT ALDO NON-REACT ALDO [facility] INDEX 0.01 <1.00 [facility] Comment: ?? HCV antibody was non-reactive. There is no laboratory ?? evidence of HCV infection. ?? In most cases, no further action is required. However, if recent HCV exposure is suspected, a test for HCV RNA (test code 55843) is suggested. ?? For additional information please refer to http://[employer]/faq/RXY01i8 (This link is being provided for informational/ educational purposes only.) ?? 07/27/2020 10:4 9 AM EDT us Margo Daniel DO HISTORICAL/NON ORDERABLE LAB S Final Result [facility] [address] from Last 3 Months or Most Recently Relevant to Health Maintenance Insurance [facility] USP OPTIONS (O D-SNP) [place] [id number] Care Teams Associate Professor Of Education Relationship Specialty Start Date End Date Margo Daniel DO [address] [place] [address] [place] [address] PCP - General Family Medicine 04/30/18
--- OUTSIDE RECORDS SUMMARY | 2025-02-23 15:21 | XMS_ITS | Encounter Summary ---
Author Organization [employer] Address [address] [facility] [address] [place] [address] Care Team Providers Care Foreign Car Mechanic Name Role Phone Fredy Margo Primary Care Provider + [phone] Encounter Details Date Type Department Care Team (Late st Contact Info) Description 02/18/2025 Orders Only [facility] [address] [place], [place] [phone] ProviderGudelia MD Social History Tobacco Use Types Packs/Day Years [...] HM COLONOSCOPY Routine 02/17/2025 8:36 PM EDT documented in this encounter Results * Hm Colonoscopy (02/17/2025 8:36 PM EDT) Colonoscopy Normal Normal Narrative Paulette Yanez - 02/17/2025 8:36 PM EDT Repeat Colonoscopy in 1-2 years or earlier if clinically indicated (see external hospital admission note on 02/17/2025 us Historical Provider HEALTH MAINTENANCE Edited Result - Final documented in this encounter Visit Diagnoses Not on filedocumented in this encounter Additional Health Concerns Assessment Noted Time PHQ-9 Depression Total Score: 6 03/04/20 24 10:36 AM EDT documented as of this encounter Care Teams Foreign Car Mechanic Relationship Specialty Start Date End Date Margo Daniel DO [address] [place] [address] PCP - General Family Medicine 04/30/18 documented as of this encounter
== END 2025-02-23 14:09 | disposition home or self-care (01) ==
LOC: HO.MAMMO 14:08
PROVIDERS: PCP Family Medicine; Visit Provider Family Medicine
DX: Z12.31 Encounter for screening mammogram for malignant neoplasm of breast (principal)
CPT/HCPCS: 77063; 77067

== ENCOUNTER → 2025-02-23 15:00 | Outpatient (BNV) | payer OTHER, SELFPAY | PROVIDERS: PCP Family Medicine; Visit Provider Internal Medicine | DX: Z12.31 Encounter for screening mammogram for malignant neoplasm of breast (principal) | CPT/HCPCS: 77063; 77067 ==

== ENCOUNTER 2025-06-26 10:24 | Emergency (ER) | payer OTHER, SELFPAY ==
--- NOTE | ~2025-06-26 | XR_ITS ---
CLINICAL HISTORY: glass vs hand , laceration Rule out fb Three views of the left hand. COMPARISON: XR left hand dated 12/25/22 at 14:13 EST FINDINGS: Bracelet overlying the left wrist obscures portions of the left wrist. Visualized portions of the distal radius and ulna appear intact. Carpal bones appear intact. Chondrocalcinosis. Metacarpals appear intact. Phalanges appear intact. No radiopaque foreign body overlying the volar aspect of the hand in the location of the marker. IMPRESSION: 1. Portions of the wrist are obscured by overlying bracelet. Within limits of study no radiographic evidence of acute injury to the left hand. 2. No radiopaque foreign body overlying the volar aspect of the hand. This document has been electronically signed by: Julio Cesar Bobby MD on 06/26/2025 13:38:33
[2025-06-26 10:30] VITALS: BP 151/71; PULSE 69; RESP 16; TEMP 36.9; O2SAT 98; BMI 35.8
--- NOTE | 2025-06-26 11:46 | ED.GENADULT ---
HPI - General Adult General Chief complaint: Wound/Laceration Stated complaint: Cut on left hand Time Seen by Provider: 06/26/25 11:46 Source: patient Mode of arrival: ambulatory Limitations: no limitations History of Present Illness ED Provider: Dr. French HPI narrative: This is a 70-year-old female presented hospital today for evaluation of left hand laceration. Patient states she was reaching for a cup. However the cup fell. It shattered and lacerated her left thenar eminence. No other injuries at this time. Related Data Home Medications ?Medication ?Instructions ?Recorded ?Confirmed ascorbic acid (vitamin C) 25 mg 10 mg PO DAILY 01/30/22 02/17/25 tablet lisinopril 30 mg tablet 30 mg PO DAILY 02/17/23 02/17/25 atorvastatin 20 mg tablet 20 mg PO DAILY 03/16/24 02/17/25 hydrochlorothiazide 12.5 mg tablet 12.5 mg PO DAILY 03/16/24 02/17/25 cholecalciferol (vitamin D3) 50 50 mcg PO DAILY 08/11/24 02/17/25 mcg (2,000 unit) capsule (Vitamin D3) diclofenac sodium 1 % topical gel 1 ea topical QID 08/11/24 02/17/25 esomeprazole magnesium 20 mg 20 mg PO DAILY 08/11/24 02/17/25 capsule,delayed release Previous Rx's ?Medication ?Instructions ?Recorded albuterol sulfate 90 mcg/actuation 2 puff inhalation Q4-6H PRN 01/10/24 aerosol inhaler shortness of breath or wheezing #8.5 grams Allergies Allergy/AdvReac Type Severity Reaction Status Date / Time morphine (MORPHINE) AdvReac Mild NAUSEA & Verified 06/26/25 10:31 VOMITING Review of Systems Review of Systems: Pertinent review of systems as mentioned in HPI. All other system otherwise negative. ON LICENSE OF [facility] Past Medical History ON LICENSE OF [facility] Narrative: Medical history as mentioned in HPI Medical History GERD (gastroesophageal reflux disease) Diverticulosis Tubular adenoma of colon Morbid obesity Gallstones Sebaceous cyst Rotator cuff dysfunction Depression Osteoarthritis of both hands Internal hemorrhoids Diverticulitis HTN (hypertension) Surgical History History of esophagogastroduodenoscopy (EGD) (07/28/24) Hx of colonoscopy H/O: hysterectomy Family History Family History Mother Breast cancer Sister Breast cancer Social History Social History Household Members: Significant Other Housing: Apartment Are you a primary in home caregiver to a significant other at home: No Do you presently have visiting nurse or other home services: No Alcohol intake: never Patient Tobacco Use Status: Former Tobacco user Tobacco use type: Cigarette Advance Directives: No Advance Directives Information Provided: Yes Do you have a plan to hurt others: No Plan service: No Current occupational status: disabled Physical Exam ED Exam Exam: General: Pleasant, no distress, interacting appropriately Head: Normacephalic, atraumatic Extremities: 5 cm linear laceration on the left thenar eminence. Range of motion of the left thumb is intact. No suspicion of tendon injury. There is some swelling. I did remove patient has bracelet due to swelling. Bracelet was given back to patient. Neurological: Awake and alert, no facial droop noted Skin: Warm and dry Psychiatric: Appropriate mood and thoughts Vital Signs: Vital Signs - 24 hr 06/26/25 10:30 Temperature 98.4 F Pulse Rate 69 Respiratory Rate 16 Blood Pressure 151/71 H Pulse Oximetry 98 Oxygen Delivery Method Room Air BMI result Body Mass Index 35.8 Medications Administered Discontinued Medications Generic Name Dose Route Start Last Admin Trade Name Freq PRN Reason Stop Dose Admin Ibuprofen 400 mg 06/26/25 12:03 06/26/25 12:16 Ibuprofen 400 Mg Tablet PO 06/26/25 12:04 400 mg ONCE ONE Administration Lidocaine HCl 5 ml 06/26/25 11:49 06/26/25 12:17 Lidocaine Hcl 1 % 20 Ml Vial INFILTRATI 06/26/25 11:50 5 ml ONCE ONE Administration Procedures Laceration Laceration 1: Site: hand Side (If applicable): left Size (cm): 5 Description: linear Depth: simple, single layer Local Anesthetic: lidocaine 1% Amount of anesthesia used (mL): 5 Pre-repair: irrigated extensively Skin layer closed with: nylon Size (cm): 4-0 Number of sutures: 5 Technique: simple, interrupted Medical Decision Making Medical Decision Making MDM Narrative: 70-year-old female presented hospital today for evaluation of laceration to the left thenar eminence. We will plan to repair this laceration. No concern of tendon injury at this time. CMS intact in the left upper extremity. Plan to use lidocaine, suture with nylon. Her tetanus shot is up-to-date. In-person supply crib attendant was used for this encounter. X-ray was obtained. I did not appreciate any signs of opaque object in her laceration. No sign of foreign object in her hand on x-ray. I did repair her laceration 5 simple interrupted stitches was placed. No complications. Discussed with the patient about infectious precautions. Patient will be discharged Differential Diagnosis Differential Diagnoses: The differential diagnosis associated with the presentation includes Tendon injury, laceration, foreign object in laceration Independent Interpretation I performed an independent interpretation of an: Plain X-Ray Discharge Plan Discharge Clinical Impression: Laceration of hand, left Qualifiers: Encounter type: initial encounter Foreign body presence: without foreign body Qualified Code(s): S61.412A - Laceration without foreign body of left hand, initial encounter Patient Disposition: Home, Self-Care Instructions: Care For Your Stitches (ED), Laceration (ED) Additional Instructions: 5 Stitches placed. remove in 10-14 days. Watch for signs of infection Prescriptions: No Action Vitamin C 25 mg Tablet 10 mg PO DAILY lisinopril 30 mg tablet 30 mg PO DAILY albuterol sulfate 90 mcg/actuation HFA aerosol inhaler 2 puff inhalation Q4-6H PRN (Reason: shortness of breath or wheezing) Qty: 8.5 0RF atorvastatin 20 mg tablet 20 mg PO DAILY hydrochlorothiazide 12.5 mg tablet 12.5 mg PO DAILY cholecalciferol (vitamin D3) [Vitamin D3] 50 mcg (2,000 unit) capsule 50 mcg PO DAILY diclofenac sodium 1 % gel 1 ea topical QID esomeprazole magnesium 20 mg capsule,delayed release(DR/EC) 20 mg PO DAILY Print Language: Urdu
--- OUTSIDE RECORDS SUMMARY | 2025-06-26 11:51 | XMS_ITS | Encounter Summary ---
Author Organization [employer] Address [address] [facility] [address]t [place] [address] Care Team Providers Care Daycare Teacher Name Role Phone Fredy Margo BRITT Primary Care Provider + [phone] Reason for Visit * Reason Comments Med Refill Encounter Details Date Type Department Care Team (Late st Contact Info) Description 02/01/[address] [facility] [address] [place] [address] Linda Ozuna FNP Social History Tobacco Use [...] documented as of this encounter Care Teams Daycare Teacher Relationship Specialty Start Date End Date Margo Daniel DO [address] [place] [address] PCP - General Family Medicine 04/30/18 documented as of this encounter
--- OUTSIDE RECORDS SUMMARY | 2025-06-26 11:51 | XMS_ITS | Clinical Summary ---
Author Organization [employer] Address [address] [place] [address] [address] [place] [address] Care Team Providers Care Die Repairer Forging Name Role Phone AldenMargo berrios Primary Care Provider [phone]- [phone] Allergies No known active allergies Medications * This document contains information received from the source organization and may not represent a complete record from that organization. Calcium Carb-Cholecalc iferol 600-10 MG-MCG tablet Take 1 tablet by mouth every 12 (twelve) hours. Active acetaminophen (Tylenol 8 Hour) 650 MG ER tablet Take 650 mg by mouth every 8 (eight) hours if needed. 06/05/20 22 Active cyclobenzaprin e (Flexeril) 10 MG tablet Take 10 mg by mouth if needed in the morning, at noon, and at bedtime. 06/05/20 22 Active docusate sodium (Colace) 100 MG capsule Take 100 mg by mouth 2 times daily. 06/05/20 22 Active fluticasone (Flonase) 50 MCG/ACT nasal spray Administer 2 sprays into each nostril in the morning. 06/05/20 22 Active loratadine (Claritin) 10 MG tablet Take 10 mg by mouth in the morning. 06/05/20 22 Active polyethylene glycol, PEG, 3350 (Glycolax) 17 GM/SCOOP powder Take 17 g by mouth if needed each day. 06/05/20 22 Active Ventolin HFA 108 (90 Base) MCG/ACT inhaler INHALE 2 PUFFS BY MOUTH EVERY 4 TO 6 HOURS NEEDED SHORTNESS OF BREATH OR FOR WHEEZING 02/28/20 23 Active Blood Pressure Monitoring (Omron 3 Series BP Monitor) device USE TO CHECK BLOOD PRESSURE DIRECTED 06/05/20 22 Active hydrOXYzine HCl (Atarax) 25 MG tabletIndicati ons:Depressive disorder Take 0.5 tablets (12.5 mg) by mouth every 6 (six) hours if needed for anxiety. 30 tablet 3 09/02/20 23 Active Diclofenac Sodium 1 % gel Apply 2 g topically if needed in the morning, at noon, in the evening, and at bedtime (pain). 150 g 3 09/02/20 23 Active baclofen (Lioresal) 10 MG tablet TAKE 1 TABLET BY MOUTH THREE TIMES DAILY IN THE MORNING, AT NOON, AND AT BEDTIME NEEDED FOR MUSCLE SPASMS 60 tablet 1 11/19/19 24 Active amitriptyline (Elavil) 10 MG tablet Take 1 tablet (10 mg) by mouth at bedtime. 30 tablet 5 03/04/20 24 Active esomeprazole (NexIUM) [address] capsule Take 1 capsule (20 mg) by mouth before breakfast and before evening meal. Do not open capsule. 60 capsule 11 08/03/20 24 025 Active hydroCHLOROthi azide 12.5 MG tablet TAKE 1 TABLET BY MOUTH EVERY MORNING 90 tablet 3 10/05/20 24 Active atorvastatin (Lipitor) 20 MG tablet TAKE 1 TABLET BY MOUTH EVERY MORNING 30 tablet 1 12/03/19 25 Active lisinopril 30 MG tablet TAKE 1 TABLET BY MOUTH EVERY DAY 90 tablet 1 05/26/20 25 Active D3 Super Strength 50 MCG (2000 UT) capsule TAKE 1 CAPSULE BY MOUTH EVERY DAY 90 capsule 3 06/24/20 25 Active cyanocobalamin (Vitamin B-12) 1000 MCG tablet TAKE 1 TABLET BY MOUTH EVERY DAY 90 tablet 3 06/24/20 25 Active famotidine (Pepcid) 20 MG tabletIndicati ons:Dyspepsia TAKE 1 TABLET BY MOUTH EVERY DAY AT BEDTIME 60 tablet 3 06/24/20 25 Active D3 Super Strength 50 MCG (2000 UT) capsule TAKE 1 CAPSULE BY MOUTH EVERY DAY 90 capsule 3 03/11/20 24 025 Discontinued cyanocobalamin (Vitamin B-12) 1000 MCG tablet TAKE 1 TABLET BY MOUTH EVERY DAY 90 tablet 3 06/03/20 24 025 Discontinued famotidine (Pepcid) 20 MG tabletIndicati ons:Dyspepsia TAKE 1 TABLET BY MOUTH AT BEDTIME 60 tablet 1 04/27/20 25 025 Discontinued Active Problems Problem Noted Date Diagnosed Date Essential hypertension 12/02/2022 Hyperlipidemia 12/02/2022 Chronic gastroesophageal reflux disease 12/02/19 Chronic constipation 12/02/2022 BMI 35.0-35.9,adult 12/02/2022 Osteoarthritis 12/02/2022 Infiltrating ductal carcinoma of left breast Healthcare maintenance 12/02/2022 Diverticulosis 12/02/2022 Family history of breast cancer 12/02/2022 Chronic back pain 12/02/2022 Osteopenia 12/02/2022 Depressive disorder 12/02/2022 History of hysterectomy for benign disease 12/02 Arthralgia 12/02/2022 Encounters Date Type Department Care Team Description 06/24/2025 Refill [facility] [address] [place] [address] Margo Daniel DO Dyspepsia 05/26/2025 Refill [facility] [address] [place] [address] Margo Daniel DO 04/26/2025 Refill [facility] [address] [place] [address] Margo Daniel, Dyspepsia from Last 3 Months Immunizations Immunization Administration Dates Next Due Influenza injectable quadriv [...] 70 08/03/2024 11:01 AM EDT Temperature 35.9 C (96.6 F) 08/03/2024 11:01 AM EDT Respiratory Rate 17 08/03/2024 11:01 AM EDT [...] Vaccines (1 - Tdap) 05/28/2008 05/27/2008, 11/13/1995 Depression Screening 03/04/2025 03/04/2024, 03/04/20 COVID-19 Vaccine ( - season) 2025 11/12/2021, 01/23/2021, 12/26/2020 Influenza Vaccine (#1) 2025 08/01/2021, 2019 SDOH Screening 07/09/2025 07/09/2024 Tobacco Screening 08/03/2025 08/03/2024 Colonoscopy 02/17/2026 02/17/2025 Colorectal Cancer Screening 02/17/2026 Mammogram 02/23/2026 02/23/2025, 01/18, 01/08/2023, Additional history exists Lipid Panel 03/04/2029 03/04/2024, 11/21, 08/03/2021, Additional [...] patient's age to complete this topic Meningococcal B Vaccine Aged Out No l onger eligible based on patient's age to complete [...] Procedure Name Priority Date/Time Associated Diagnosis Comments BI MAMMOGRAM SCREENING TOMOSYNTHESIS BILATERAL Routine 02/23/2025 3:00 PM EDT HM COLONOSCOPY Routine 02/17/2025 8:36 PM EDT LIPID PANEL, STANDARD Routine 03/04/2024 12:12 PM EDT Essential hypertension ZZZ HISTORICAL HEPATITIS C AB W/REFL TO HCV RNA, QN, PCR Routine 07/27/2020 10:49 AM EDT from Last 3 Months or Most Recently Relevant to Health Maintenance Results * BI Mammogram Screening Tomosynthesis Bilateral (02/23/2025 3:00 PM EDT) Anatomical Region Laterality Modality Breast Bilateral Mammography 02/23/2025 3:00 PM EDT Narrative 03/01/2025 1:36 PM EDT Norm [address] [place] [address] Mammography Report Signed Patient: Arlene Albrecht I MR#: [id number] 2 : 1955 Acct:[id number] Age/Sex: 69 / F ADM Date: 02/23/25 Loc: HO.MAMMO Attending Dr: Margo Daniel DO Ordering Physician: Margo Daniel DO Results: 2B enign Findings Date of Service: 02/23/25 Follow Up: 1 Year From Orig inal Mammogram Procedure(s): MM tomosynthesis screening BI Accession Number(s): [id number] cc: Margo Daniel DO EXAMINATION: MM SCREENING DIGITAL BREAST TOMOSYNTHESIS, BILATERAL CLINICAL INFORMATION: Screening. Asymptomatic. COMPARISON: Mammography: Comparison is made with available priors TECHNIQUE: Digital breast mammography with tomosynthesis is performed in both the craniocaudal and mediolateral oblique views along with computer-aided detection (CAD). FINDINGS: The breasts are heterogeneously dense, which may obscure small masses (ACR BI-RADS breast composition Category c). Left postsurgical changes are stable. There are no significant masses, abnormal calcifications, or other abnormalities. MM/MM tomosynthesis screening BI IMPRESSION: No mammographic evidence of malignancy. ASSESSMENT: BI-RADS BI-RADS 2 - Benign Findings RECOMMENDATION: Routine annual mammography screening. 1 year F/U This examination should not preclude the clinical evaluation of a suspicious palpable abnormality. This patient's information was entered into a reminder system with a target due date for their next mammogram. Electronically signed by: Melba Bartlett DO 03/01/2025 01:33 PM EDT RP Dictated By: Melba Bartlett DO Signed By: <Electronically signed by Melba Bartlett DO in OV> 03/01/25 1333 DD/ 1500 TD/TT: 02/23/25 1501 Space Control Supervisor: Procedure Note Donotuseinterpreter, Image - 03/01/2025 [facility] [address] [place] [address] Mammography Report Signed Patient: Arlene Albrecht IMR#: [id number] 2 : 1955cct:[id number] Age/Sex: 69 / FADM Date: 02/23/25 Loc: HO.MAMMO Attending Dr: Margo Daniel DO Ordering Physician: Margo Danielults: 2B enign Findings Date of Service: 02/23/25Follow Up: 1 Year From Orig ina Mammogram Procedure(s): MM tomosynthesis screening BI Accession Number(s): [id number] cc: Margo Daniel DO EXAMINATION: MM SCREENING DIGITAL BREAST TOMOSYNTHESIS, BILATERAL CLINICAL INFORMATION: Screening. Asymptomatic. COMPARISON: Mammography: Comparison is made with available priors TECHNIQUE: Digital breast mammography with tomosynthesis is performed in both the craniocaudal and mediolateral oblique views along with computer-aided detection (CAD). FINDINGS: The breasts are heterogeneously dense, which may obscure small masses (ACR BI-RADS breast composition Category c). Left postsurgical changes are stable. There are no significant masses, abnormal calcifications, or other abnormalities. MM/MM tomosynthesis screening BI IMPRESSION: No mammographic evidence of malignancy. ASSESSMENT: BI-RADS BI-RADS 2 - Benign Findings RECOMMENDATION: Routine annual mammography screening. 1 year F/U This examination should not preclude the clinical evaluation of a suspicious palpable abnormality. This patient's information was entered into a reminder system with a target due date for their next mammogram. Electronically signed by: Melba Bartlett DO 03/01/2025 01:33 PM EDT RP Dictated By: Melba Bartlett DO Signed By: <Electronically signed by Melba Bartlett DO in OV> 03/01/25 1333 DD/ 1500 TD/TT: 02/23/25 1501 Space Control Supervisor: Margo Daniel DO IMG BI PROCEDURES Final Resu lt * Hm Colonoscopy (02/17/2025 8:36 PM EDT) Colonoscopy Normal Normal Narrative Paulette Yanez - 02/17/2025 8:36 PM EDT Repeat Colonoscopy in 1-2 years or earlier if clinically indicated (see external hospital admission note on 02/17/2025 Historical Provider HEALTH MAINTENANCE Edited Result - Final * Lipid Panel, Standard (03/04/2024 12:12 PM EDT) Triglycerides 120 <150 mg/dL [facility] Comment:Desirable Triglyceri de: less than 150 mg/dLBorderline High Triglyceride 150-199 mg/dLHigh Triglyceride: 200-499 mg/dLVery High Triglyceride: greater than or equal to 5OO mg/dL Cholesterol 126 <200 mg/dL [facility] Comment:Desirable Cholestero l: less than 200 mg/dLBorderline High Cholesterol: 200-239 mg/dLHigh Cholesterol: greater than 239 mg/dL LDL Cholesterol Calculated 57 <100 mg/dL [facility] Comment:Desirable LDL: less than 100 mg/dLNear Optimal/Above Optimal LDL: 110- 129 mg/dLBorderline High LDL: 130-159 mg/dLHigh LDL: 160-189 mg/dLVery High LDL: greater than or equal to 190 mg/dL HDL Cholesterol 45 >40 mg/dL [facility] Comment:Desirable HDL: great er than 40 mg/dL Note: This HDL assay may give artificially low results in patients with liver disease. Blood Venous blood specimen / Unknown 03/04/2024 12:12 PM EDT 03/04/2024 12:58 PM EDT us Margo Daniel DO LAB BLOOD ORDERABLES Final R esult [facility] [address] [place] [phone] * HEPATITIS C AB W/REFL TO HCV RNA, QN, PCR (07/27/2020 10:49 AM EDT) HEPATITIS C ANTIBODY NON-REACT ALDO NON-REACT ALDO [facility] INDEX 0.01 <1.00 [facility] Comment: HCV antibody was non-reactive. There is no laboratory evidence of HCV infection. In most cases, no further action is required. However, if recent HCV exposure is suspected, a test for HCV RNA (test code 63843) is suggested. For additional information please refer to http://YuMe.Formabilio/faq/RCF21j1 (This link is being provided for informational/ educational purposes only.) HEPATITIS C ANTIBODY NON-REACT ALDO NON-REACT ALDO [facility] INDEX 0.01 <1.00 [facility] Comment: HCV antibody was non-reactive. There is no laboratory evidence of HCV infection. In most cases, no further action is required. However, if recent HCV exposure is suspected, a test for HCV RNA (test code 18286) is suggested. For additional information please refer to http://YuMe.Formabilio/faq/DWK25f1 (This link is being provided for informational/ educational purposes only.) HEPATITIS C ANTIBODY NON-REACT ALDO NON-REACT ALDO [facility] INDEX 0.01 <1.00 [facility] Comment: HCV antibody was non-reactive. There is no laboratory evidence of HCV infection. In most cases, no further action is required. However, if recent HCV exposure is suspected, a test for HCV RNA (test code 97721) is suggested. For additional information please refer to http://VENNCOMM/faq/OFX69d8 (This link is being provided for informational/ educational purposes only.) HEPATITIS C ANTIBODY NON-REACT ALDO NON-REACT ALDO [facility] INDEX 0.01 <1.00 [facility] Comment: HCV antibody was non-reactive. There is no laboratory evidence of HCV infection. In most cases, no further action is required. However, if recent HCV exposure is suspected, a test for HCV RNA (test code 91187) is suggested. For additional information please refer to http://VENNCOMM/faq/ULQ91v9 (This link is being provided for informational/ educational purposes only.) 07/27/2020 10:4 9 AM EDT us Margo Daniel DO HISTORICAL/NON ORDERABLE LAB S Final Result [facility] [address] from Last 3 Months or Most Recently Relevant to Health Maintenance Insurance [facility] [employer] (O D-SNP) [place] [id number] Care Teams Die Repairer Forging Relationship Specialty Start Date End Date Margo Daniel DO [address] [place] [phone] PCP - General Family Medicine 04/30/18
--- OUTSIDE RECORDS SUMMARY | 2025-06-26 11:51 | XMS_ITS | Encounter Summary ---
Author Organization [employer] Address [address] [place] [address] 7 [place] [address] Care Team Providers Care Nursery Supervisor Name Role Phone Margo Daniel DO Primary Care Provider +1- [phone] Reason for Visit * Reason Comments Med Refill Encounter Details Date Type Department Care Team (Late st Contact Info) Description 06/24/2025 Refill [facility] [address] [place] [address] Margo Daniel DO [address] [place], [place] [phone] Dyspepsia Social History Tobacco Use Types Packs/Day Years [...] your housing situation today? I have chelsy cyndee 07/09/[address] you li [...] documented as of this encounter Visit Diagnoses Diagnosis Dyspepsia Dyspepsia and other specified disorders of function of stomach documented in this encounter Additional Health Concerns Assessment Noted Time PHQ-9 Depression Total Score: 6 03/04/20 24 10:36 AM EDT documented as of this encounter Care Teams Nursery Supervisor Relationship Specialty Start Date End Date Margo Daniel DO [address] [place] [phone] PCP - General Family Medicine 04/30/18 documented as of this encounter
--- OUTSIDE RECORDS SUMMARY | 2025-06-26 11:51 | XMS_ITS | Encounter Summary ---
Author Organization [employer] Address [address] [facility] 7 [place] [address] Care Team Providers Care Footwear Factory Worker Name Role Phone Margo Daniel DO Primary Care Provider +1- [phone] Reason for Visit * Reason Onset Date Comments Nurse Triage 12/31/2023 Encounter Details Date Type Department Care Team (Late st Contact Info) Description 12/31/2023 Telephone [facility] [address] [place] [address] Margo Daniel DO [address] [place], [place] [phone] Nurse Triage Social History Tobacco Use Types [...] 12/31/2023 3:50 PM EDT Triage call with [employer] information services consultant [place] [id number] Pt reports has been having abdominal cramping/discomfort [...] as usual. Advised Pt to come to [facility] for provider to see Pt and [...] accepted this outcome Please contact pt at [phone] (Hungarian) documented in this encounter Plan of Treatment Not on file documented as of this encounter Visit Diagnoses Not on filedocumented in this encounter Care Teams Footwear Factory Worker Relationship Specialty Start Date End Date Margo Daniel DO [address] [place] [id number] PCP - General Family Medicine 04/30/18 documented as of this encounter
--- OUTSIDE RECORDS SUMMARY | 2025-06-26 11:51 | XMS_ITS | Encounter Summary ---
Author Organization [employer] Address [address] [facility] [address] [place] [address] Care Team Providers Care Motorcycle Tester Name Role Phone Fredy Margo Primary Care Provider [phone] Encounter Details Date Type Department Care Team (Late st Contact Info) Description 02/18/2025 Orders Only [facility] [address] [place], [place] [id number] Provider, MD Gudelia Social History Tobacco Use Types Packs/Day Years [...] EDT documented in this encounter Results * BI Mammogram Screening Tomosynthesis Bilateral (02/23/2025 3:00 PM EDT) Anatomical Region Laterality Modality Breast Bilateral Mammography 02/23/2025 3:00 PM EDT Narrative 03/01/2025 1:36 PM EDT [facility] [address] [place] [address] Mammography Report Signed Patient: Arlene Albrecht I MR#: [id number] 2 : 1955 Acct:[id number] Age/Sex: 69 / F ADM Date: 02/23/25 Loc: HO.MAMMO Attending Dr: Margo Daniel DO Ordering Physician: Margo Daniel DO Results: 2B enign Findings Date of Service: 02/23/25 Follow Up: 1 Year From Orig inal Mammogram Procedure(s): MM tomosynthesis screening BI Accession Number(s): [id number] cc: Margo Daniel DO EXAMINATION: MM SCREENING [...] 03/01/25 1333 DD/ 1500 TD/TT: 02/23/25 1501 Summer [employer] Counselor: Procedure Note Donotuseinterpreter, Image - 03/01/2025 [facility] [address] [place], [place] [address] Mammography Report Signed Patient: Arlene Albrecht IMR#: [id number] 2 : 1955cct:[id number] Age/Sex: 69 / FADM Date: 02/23/25 Loc: HO.MAMMO Attending Dr: Margo Daniel DO Ordering Physician: Margo Danielults: 2B enign Findings Date of Service: 02/23/25Follow Up: 1 Year From Orig inal Mammogram Procedure(s): MM tomosynthesis screening BI Accession Number(s): [id number] cc: Margo Daniel DO EXAMINATION: MM SCREENING [...] Melba Bartlett DO 03/01/2025 01:33 PM EDT Dictated By: Melba Bartlett DO Signed By: <Electronically signed by Melba Bartlett DO in OV> 03/01/25 1333 DD/ 1500 TD/TT: 02/23/25 1501 Summer [employer] Counselor: Margo Daniel DO IMG BI PROCEDURES Final [...] documented as of this encounter Care Teams Motorcycle Tester Relationship Specialty Start Date End Date Margo Daniel DO [address] [place] [address] PCP - General Family Medicine 04/30/18 documented as of this encounter
--- OUTSIDE RECORDS SUMMARY | 2025-06-26 11:51 | XMS_ITS | Encounter Summary ---
Author Organization [employer] Address [address] [place] [address] [address] [place] [address] Care Team Providers Care Foot Worker Name Role Phone Margo Daniel DO Primary Care Provider [phone] Encounter Details Date Type Department Care Team (Late st Contact Info) Description 12/03/2022 Orders Only [facility] [address] [place] [address] Margo Daniel DO [address] [place], [place] [phone] Depressive disorder (Primary Dx) Social History Tobacco [...] Laterality Modality Upper Extremities, Hand Right Radiogra [facility] Imaging 12/25/2022 2:17 PM EST Narrative 12/30/2022 7:41 PM EDT [address] [address] XRay Report Signed Patient: Arlene Albrecht I MR#: [id number] 2 : 1955 Acct:[id number] Age/Sex: 67 / F ADM Date: 12/25/22 Loc: HO.JAISON Attending Dr: Margo Daniel DO Ordering Physician: Margo Daniel DO Date of Service: 12/25/22 Procedure(s): XR hand RT min 3V Accession Number(s): [id number] cc: Margo Daniel DO EXAMINATION: XR HAND, [...] MD in OV> 12/30/221937 DD/ 1417 TD/TT: [employer]: VALDEZ Procedure Note Donotuseinterpreter, Image - 12/30/2022 [place] [address] XRay Report Signed Patient: Arlene Albrecht IMR#: [id number] 2 : 1955cct:[id number] Age/Sex: 67 / FADM Date: 12/25/22 Loc: HO.JAISON Attending Dr: Margo Daniel DO Ordering Physician: Margo Daniel DO Date of Service: 12/25/22 Procedure(s): XR hand RT min 3V Accession Number(s): [id number] cc: Margo Daniel DO EXAMINATION: XR HAND, [...] in OV> 12/30/22 1938 DD/ 1417 TD/TT: [employer]: [employer] [facility] External Provider IMG XR PROCEDURES Edited Result - Final * XR Hand 3+ Views Left (12/25/2022 2:17 PM EST) Anatomical Region Laterality Modality Upper Extremities, Hand Left Radiogra phic Imaging 12/25/2022 2:17 PM EST Narrative 12/30/2022 7:41 PM EDT [address] [address] XRay Report Signed Patient: Arlene Albrecht I MR#: [id number] 2 : 1955 Acct:[id number] Age/Sex: 67 / F ADM Date: 12/25/22 Loc: HO.XRAY Attending Dr: Margo Daniel DO Ordering Physician: Margo Daniel DO Date of Service: 12/25/22 Procedure(s): XR hand LT min 3V Accession Number(s): [id number] cc: Margo Daniel DO EXAMINATION: XR HAND, [...] in OV> 12/30/22 1938 DD/ 1417 TD/TT: [employer]: [employer]DE[employer] Procedure Note Donotuseinterpreter, Image - 12/30/[address] [address] XRay Report Signed Patient: Arlene Albrecht IMR#: [id number] 2 : 1955cct:[id number] Age/Sex: 67 / FADM Date: 12/25/22 Loc: HOHAYES Attending Dr: Margo Daniel DO Ordering Physician: Margo Daniel DO Date of Service: 12/25/22 Procedure(s): XR hand LT min 3V Accession Number(s): [id number] cc: Margo Daniel DO EXAMINATION: XR HAND, [...] in OV> 12/30/22 1938 DD/ 1417 TD/TT: [employer]: [employer]DE[facility] [employer] Provider Result Type Result Stat [facility] External Provider IMG XR PROCEDURES Edited Result - Final documented in this encounter Visit Diagnoses Diagnosis Depressive disorder- Primary Depressive disorder, not elsewhere classified documented in this encounter Care Teams Foot Worker Relationship Specialty Start Date End Date Margo Daniel DO [address] [place] [address] PCP - General Family Medicine 04/30/18 documented as of this encounter
[2025-06-26] MEDS: Lidocaine HCl 1 % 20 ML VIAL 5 ML INFILTRATI (12:17)
[2025-06-26 13:00] VITALS: BP 151/71; PULSE 69; RESP 16; TEMP 36.9; O2SAT 98
== END 2025-06-26 13:00 | disposition home or self-care (01) ==
PROVIDERS: Emergency Provider Student in an Organized Health Care Education/Training Program; PCP Family Medicine
DX: S61.412A Laceration without foreign body of left hand, initial encounter (principal); W25.XXXA Contact with sharp glass, initial encounter; Y93.9 Activity, unspecified; Y92.9 Unspecified place or not applicable; Y99.9 Unspecified external cause status
CPT/HCPCS: 12002; 73130; 99283; 99284; J2003

== ENCOUNTER → 2025-06-26 11:48 | Outpatient (BNV) | payer OTHER, SELFPAY | PROVIDERS: Emergency Provider Student in an Organized Health Care Education/Training Program; PCP Family Medicine; Visit Provider Radiology Diagnostic Radiology | DX: S61.412A Laceration without foreign body of left hand, initial encounter (principal) | CPT/HCPCS: 73130 ==